=== PATIENT | female | born 1960 | race Hispanic/Latino ===

== ENCOUNTER 2016-09-30 14:51 | Inpatient (IN) | payer MEDICAID ==
[2016-09-30] MEDS ORDERED: Morphine 4 mg/ml ISec IVP STA ×3 (15:26→18:35)
[2016-09-30] MEDS ORDERED: Sodium Chloride 0.9% 1,000 ML IV STA (15:26)
[2016-09-30] MEDS ORDERED: Albuterol-Ipratrop 3 mg / 0.5 (3 ml) UD IH STA (15:28)
[2016-09-30] MEDS ORDERED: Iohexol 240 (50 ml) ONE (15:33)
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
[2016-09-30 16:15] LABS: ADD MANUAL DIFF? NO
[2016-09-30 16:19] LABS: BASO # 0.01 K/mm3 (0.0-2.0); BASO % 0.1 % (0.0-3.0); EOS # 0.1 (0.0-0.7); EOS % 1.7 % (1.5-5.0); GRAN # 4.05 (1.4-6.5); GRAN % 58.5 % (50.0-68.0); HEMATOCRIT 40.4 % (36.0-48.0); LYMPH # 2.3 (1.2-3.4); LYMPH % 33.8 % (22.0-35.0); MEAN CELL VOLUME 96.2 fL (80.0-105.0); MEAN CORPUSCULAR HEMOGLOBIN 32.1 pg (25.0-35.0); MEAN CORPUSCULAR HGB CONC 33.4 g/dl (31.0-37.0); MEAN PLATELET VOLUME 10.2 fl (7.0-11.0); MONO # 0.4 (0.1-0.6); MONO % 5.9 % (1.0-6.0); PLATELET COUNT 337 10^3/uL (120.0-450.0); WHITE BLOOD COUNT 6.9 10^3/ul (4.5-11.0)
[2016-09-30 16:29] LABS: INR 0.93 (0.93-1.08); PARTIAL THROMBOPLASTIN TIME 23.1 Seconds (23.7-30.8)
[2016-09-30 16:36] LABS: ALKALINE PHOSPHATASE 129 U/L (38-133); ALT/SGPT 32 U/L (7-56); AST/SGOT 28 U/L (15-39); BILIRUBIN,TOTAL 0.5 mg/dL (0.2-1.3); BLOOD UREA NITROGEN 11 mg/dL (7-21); CARBON DIOXIDE 20 mmol/L (21-33); CHLORIDE 102 mmol/L (98-107); GFR AFRICAN-AMERICAN > 60; GLUCOSE,RANDOM 90 mg/dL (70-110); LIPASE 151 U/L (23-300); POTASSIUM 4.5 mmol/L (3.6-5.0); SODIUM 140 mmol/L (132-148); TOTAL PROTEIN 9.4 g/dL (5.8-8.3)
[2016-09-30 16:48] LABS: TROPONIN I < 0.01 ng/mL
[2016-09-30] MEDS ORDERED: Iohexol 350 MG/100 ML VIAL ONE (17:07)
[2016-09-30 17:23] LABS: URINE BILIRUBIN NEGATIVE (NEGATIVE); URINE BLOOD TRACE-INTACT (NEGATIVE); URINE GLUCOSE (UA) NEGATIVE (NEGATIVE); URINE KETONE NEGATIVE (NEGATIVE); URINE LEUKOCYTE ESTERASE SMALL Leu/uL (NEGATIVE); URINE PROTEIN NEGATIVE mg/dL (<30 mg/dL); URINE UROBILINOGEN 0.2 E.U./dL (<1 E.U./dL)
[2016-09-30 17:24] LABS: URINE APPEARANCE CLEAR (CLEAR); URINE COLOR YELLOW (YELLOW)
[2016-09-30 17:34] LABS: URINE BACTERIA FEW (NEG); URINE RBC 0 - 2 /hpf (0-2)
--- NOTE | 2016-09-30 18:10 | CARD ---
APPROVED REPORT EKG Measurement Heart [id number] <Conclusion> Normal sinus rhythm Normal ECG
--- NOTE | 2016-09-30 18:16 | CT ---
PROCEDURE: CT HEAD WITHOUT CONTRAST. HISTORY: recent sz 2 days ago COMPARISON: Noncontrast head CT performed 04/16/16 TECHNIQUE: Axial computed tomography images were obtained through the head/brain without intravenous contrast. Radiation dose: Total exam DLP = 1451.69 mGy-cm. This CT exam was performed using one or more of the following dose reduction techniques: Automated exposure control, adjustment of the mA and/or kV according to patient size, and/or use of iterative reconstruction technique. FINDINGS: Examination limited due to patient motion. Streak artifact severely degrades evaluation of the skullbase. HEMORRHAGE: No intracranial hemorrhage. BRAIN: No mass effect or edema. Intracranial atherosclerotic calcifications. Regions in which the miller-white matter differentiation is visualized adequately appears grossly intact. VENTRICLES: No hydrocephalus. CALVARIUM: Unremarkable. PARANASAL SINUSES: Partial opacification of the right sphenoid sinus. The remainder the visualized paranasal sinuses appear grossly clear without air-fluid levels. MASTOID AIR CELLS: Unremarkable as visualized. No inflammatory changes. OTHER FINDINGS: None. IMPRESSION: Examination limited due to patient motion. Streak artifact severely degrades evaluation of the skullbase. Repeat study to become clinically feasible suggested. No acute intracranial pathology appreciated in the setting of the above limitations.
--- NOTE | 2016-09-30 18:33 | CT ---
PROCEDURE: CT Abdomen and Pelvis with oral and IV contrast. HISTORY: abd pain r/o obstruction COMPARISON: CT chest, abdomen, and pelvis 04/19/16 TECHNIQUE: Contiguous axial images of the abdomen and pelvis. Oral and IV contrast was administered. Coronal and Sagittal reformats generated and reviewed. This CT exam was performed using 1 or more of the falling dose reduction techniques: Automated exposure control, adjustment of the MAA and/or kV according to patient size, and/or use of iterative reconstruction technique Contrast dose: 100 mL Omnipaque 350 Radiation dose: Total exam DLP = 1096.09 mGy-cm. FINDINGS: LOWER THORAX: Left basilar atelectasis. There is no visible pleural effusion or pneumothorax. Moderate hiatal hernia and dilated distal esophagus with evidence of gastroesophageal reflux. LIVER: Hypoattenuation of the liver compatible with hepatic steatosis. GALLBLADDER AND BILE DUCTS: Probable tiny gallstones. PANCREAS: Unremarkable. SPLEEN: Unremarkable. ADRENALS: Unremarkable. KIDNEYS AND URETERS: The kidneys enhance symmetrically. No hydronephrosis or obstructing renal calculus. 13 mm low-density lesion within the right kidney measures higher than expected for simple cyst. BLADDER: The urinary bladder appears unremarkable. REPRODUCTIVE: Uterus is absent, presumably due to hysterectomy. APPENDIX: The appendix is not identified. No secondary signs of acute appendicitis. BOWEL: The stomach is nondistended. The bowel loops appear within normal limits of caliber without evidence of intestinal obstruction. Suspect small bowel intussusception within the left upper quadrant (series 2, image 66) . PERITONEUM: No significant free fluid. No definite free air. LYMPH NODES: No bulky lymphadenopathy identified. VASCULATURE: No aortic aneurysm. BONES: Postsurgical changes of the lower lumbar spine. Degenerative changes. Erosive changes of the right iliac wing extending into the sacroiliac joint. OTHER FINDINGS: Tiny fat containing umbilical hernia. IMPRESSION: Suspect small bowel intussusception within the left upper quadrant . Moderate hiatal hernia and dilated distal esophagus with evidence of gastroesophageal reflux. Hepatic steatosis. Probable tiny gallstones. 13 mm low-density lesion within the right kidney measures higher than expected for simple cyst. Suggest further evaluation with ultrasound. Focal erosive change involving the right iliac wing extending into the sacroiliac joint of unclear etiology however present since 05/29/12.
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
[2016-09-30] MEDS ORDERED: levETIRAcetam 500mg IVPB 100 ML IV STA (20:17)
[2016-09-30] MEDS: HYDROmorphone 0.5 mg/0.5 ml ISec IVP PRN (20:40)
[2016-09-30] MEDS: Sodium Chloride 0.9% 1,000 ML IV SCH (21:00)
[2016-09-30 22:32] LABS: INR 0.98 (0.93-1.08)
--- NOTE | 2016-09-30 22:38 | CP.PCM.PN ---
Subjective - Date & Time of Evaluation Date of Evaluation: 09/30/16 Time of Evaluation: 22:36 - Subjective Subjective: wants xanax and a sleeping pill Objective - Vital Signs/Intake and Output Vital Signs (last 24 hours): Temp Pulse Resp BP Pulse Ox 98.1 F 116 H 20 125/99 H 97 09/30/16 15:07 09/30/16 18:39 09/30/16 18:39 09/30/16 18:39 09/30/16 18:39 Intake and Output: 09/30/16 10/01/16 18:59 06:59 Intake Total 120 Balance 120 - Medications Medications: Current Medications Hydromorphone HCl (Dilaudid) 0.5 mg IVP Q4H PRN PRN Reason: Pain, severe (8-10) Last Admin: 09/30/16 20:40 Dose: 0.5 mg Sodium Chloride (Sodium Chloride 0.9%) 1,000 mls @ 100 mls/hr IV .Q10H STA Stop: 10/01/16 01:25 Last Admin: 09/30/16 15:40 Dose: 100 mls/hr Sodium Chloride (Sodium Chloride 0.9%) 1,000 mls @ 100 mls/hr IV .Q10H MANJULA Ondansetron HCl (Zofran Inj) 4 mg IVP Q4H PRN PRN Reason: Nausea/Vomiting - Labs Labs: PT 10.6 Seconds (9.9-11.8) 09/30/16 22:10 INR 0.98 (0.93-1.08) 09/30/16 22:10 APTT 25.0 Seconds (23.7-30.8) 09/30/16 22:10
--- NOTE | 2016-10-01 00:04 | CP.PCM.PN ---
Subjective - Date & Time of Evaluation Date of Evaluation: 10/01/16 Time of Evaluation: 00:03 - Subjective Subjective: S:Patient was seen at bedside. Requests her xananx. States that she is very nervous. Has no other complaints. Denies CP,SOB. States that she is on xanax 0.5 mg three times a day and is on ambien for sleep. States that it is too late to take a sleeping pill, requests for xanax. States that she took only on xanax in the morning. Pertinent medical record was reviewed. O: Last Vital Signs 3 Temp 98.1 F 10/01/16 16:00 Pulse 72 10/01/16 16:00 Resp 19 10/01/16 16:00 BP 103/52 L 10/01/16 16:00 Pulse Ox 93 L 10/01/16 16:00 Awake, alert, not in distress. LUNGS:Normal breathing pattern. A:Anxiety. Adjustment insomnia. P:Xanax 1 mg PO x 1. Objective - Vital Signs/Intake and Output Vital Signs (last 24 hours): Temp Pulse Resp BP Pulse Ox 98.1 F 116 H 20 125/99 H 97 09/30/16 15:07 09/30/16 18:39 09/30/16 18:39 09/30/16 18:39 09/30/16 18:39 Intake and Output: 09/30/16 10/01/16 18:59 06:59 Intake Total 120 Balance 120 - Medications Medications: Current Medications Hydromorphone HCl (Dilaudid) 0.5 mg IVP Q4H PRN PRN Reason: Pain, severe (8-10) Last Admin: 09/30/16 20:40 Dose: 0.5 mg Sodium Chloride (Sodium Chloride 0.9%) 1,000 mls @ 100 mls/hr IV .Q10H STA Stop: 10/01/16 01:25 Last Admin: 09/30/16 15:40 Dose: 100 mls/hr Sodium Chloride (Sodium Chloride 0.9%) 1,000 mls @ 100 mls/hr IV .Q10H MANJULA Last Admin: 09/30/16 21:00 Dose: 100 mls/hr Ondansetron HCl (Zofran Inj) 4 mg IVP Q4H PRN PRN Reason: Nausea/Vomiting - Labs Labs: PT 10.6 Seconds (9.9-11.8) 09/30/16 22:10 INR 0.98 (0.93-1.08) 09/30/16 22:10 APTT 25.0 Seconds (23.7-30.8) 09/30/16 22:10
[2016-10-01] MEDS: HYDROmorphone 0.5 mg/0.5 ml ISec IVP PRN ×6 (00:24→20:43)
[2016-10-01 02:01] VITALS: BMI 31.1
[2016-10-01 07:21] LABS: ADD MANUAL DIFF? NO
[2016-10-01 07:30] LABS: ALB/GLOB RATIO 1.1 (1.1-1.8); ALKALINE PHOSPHATASE 101 U/L (38-133); ALT/SGPT 35 U/L (7-56); AST/SGOT 32 U/L (15-39); BILIRUBIN,TOTAL 0.5 mg/dL (0.2-1.3); BLOOD UREA NITROGEN 14 mg/dL (7-21); CALCIUM 9.2 mg/dL (8.4-10.5); CARBON DIOXIDE 25 mmol/L (21-33); CHLORIDE 102 mmol/L (95-110); GFR AFRICAN-AMERICAN > 60; GLUCOSE,RANDOM 118 mg/dL (70-110); SODIUM 139 mmol/L (132-148)
[2016-10-01 07:38] LABS: GRAN # 7.52 (1.4-6.5); HEMATOCRIT 33.4 % (36.0-48.0); LYMPH # 1.5 (1.2-3.4); LYMPH % 16.2 % (22.0-35.0); MEAN CELL VOLUME 96.3 fL (80.0-105.0); MEAN CORPUSCULAR HEMOGLOBIN 31.7 pg (25.0-35.0); MEAN CORPUSCULAR HGB CONC 32.9 g/dl (31.0-37.0); MONO # 0.5 (0.1-0.6); MONO % 4.8 % (1.0-6.0); PLATELET COUNT 326 10^3/uL (120.0-450.0); RED CELL DISTRIBUTION WIDTH 14.4 % (11.5-14.5); WHITE BLOOD COUNT 9.5 10^3/ul (4.5-11.0)
[2016-10-01 07:51] LABS: POTASSIUM 5.2 mmol/L (3.6-5.0)
[2016-10-01] MEDS: Budesonide 0.25 mg/2 ml Inhal Susp UD IH SCH ×2 (08:14→19:30)
[2016-10-01] MEDS: Arformoterol 15 mcg/2 ml Inh Sol IH SCH ×2 (08:14→19:30)
--- NOTE | 2016-10-01 08:50 | CP.PCM.PN ---
Subjective - Date & Time of Evaluation Date of Evaluation: 10/01/16 Time of Evaluation: 07:00 - Subjective Subjective: Surgery note for Dr Day: Pt seen and examined at bedside. No acute events overnight. Pt appears anxious about her abdominal pain. She c/o intermittent abd pain. She has nausea but denies any vomiting. Pt had non bloody BM yesterday. Denies any fever, chills, sob or cp. Objective - Vital Signs/Intake and Output Vital Signs (last 24 hours): Temp Pulse Resp BP Pulse Ox 98.0 F 113 H 20 141/87 97 09/30/16 21:11 10/01/16 08:14 09/30/16 21:11 09/30/16 21:11 09/30/16 18:39 Intake and Output: 10/01/16 10/01/16 06:59 18:59 Intake Total 120 0 Balance 120 0 - Medications Medications: Current Medications Alprazolam (Xanax) 0.5 mg PO TID MANJULA PRN Reason: Protocol Arformoterol Tartrate (Brovana) 15 mcg IH [id number] [facility] Last Admin: 10/01/16 08:14 Dose: 15 mcg Budesonide (Pulmicort Respules) 0.25 mg IH [id number] [facility] Last Admin: 10/01/16 08:14 Dose: 0.25 mg Hydromorphone HCl (Dilaudid) 0.5 mg IVP Q4H PRN PRN Reason: Pain, severe (8-10) Last Admin: 10/01/16 08:33 Dose: 0.5 mg Sodium Chloride (Sodium Chloride 0.9%) 1,000 mls @ 100 mls/hr IV .Q10H [facility] Last Admin: 09/30/16 21:00 Dose: 100 mls/hr Insulin Human Regular (Humulin R High) 0 units SC ACHS MANJULA PRN Reason: Protocol Levetiracetam (Keppra) 500 mg PO BID MANJULA Methylprednisolone (Solu-Medrol) 20 mg IVP Q12 MANJULA Ondansetron HCl (Zofran Inj) 4 mg IVP Q4H PRN PRN Reason: Nausea/Vomiting Pantoprazole Sodium (Protonix Inj) 40 mg IVP DAILY MANJULA Paroxetine HCl (Paxil) 20 mg PO DAILY MANJULA Zolpidem Tartrate (Ambien) 5 mg PO HS PRN; Protocol PRN Reason: Insomnia - Labs Labs: 10/01/16 07:00 10/01/16 07:00 PT 10.6 Seconds (9.9-11.8) 09/30/16 22:10 INR 0.98 (0.93-1.08) 09/30/16 22:10 APTT 25.0 Seconds (23.7-30.8) 09/30/16 22:10 - Constitutional Appears: No Acute Distress - ENT Exam ENT Exam: Mucous Membranes Moist - Respiratory Exam Respiratory Exam: Clear to Ausculation Bilateral, NORMAL BREATHING PATTERN - Cardiovascular Exam Cardiovascular Exam: REGULAR RHYTHM, +S1, +S2. absent: Murmur - GI/Abdominal Exam GI & Abdominal Exam: Soft, Tenderness (L>R), Normal Bowel Sounds. absent: Distended, Rigid - Neurological Exam Neurological Exam: Alert, Awake, Oriented x3 Assessment and Plan - Assessment and Plan (Free Text) Assessment: 56F with an extensive pmh presents with a small bowel intusseseption. - No surgical intervention at this time - NPO - Pain control - Cont antiemetic - Cont IVF - Serial abdominal Exams - Medical management per primary team Further recs will discuss with Dr. Shay Berg IM Resident PGY-1
[2016-10-01] MEDS: Sodium Chloride 0.9% 1,000 ML IV SCH ×2 (09:17→17:25)
[2016-10-01] MEDS: MethylPREDNISolone 40 mg Vial IVP SCH ×2 (09:21→22:23)
[2016-10-01] MEDS ORDERED: MethylPREDNISolone 40 mg Vial IVP SCH (10:00)
[2016-10-01] MEDS ORDERED: Fluticasone-Salmeterol 100-50mcg Diskus IH SCH (10:00)
--- NOTE | 2016-10-01 10:07 | HP ---
I know the patient very well from the office and numerous hospital stays. She came to my office yest erday with shortness of breath, uncomfortable, abdominal distention maybe, just not feeling well, and I called 911 from my office due to her increasing respirations in the 30s, close to 40. She is a 56-year-old female who presents to the Emergency Room with worsening shortness of breath, le ft upper quadrant abdominal pain. She also had possible seizures 2 days ago. She had urinary incont inence at the time. The left upper quadrant pain began with the shortness of breath. She came to my office and I sent her to the Emergency Room. It was sudden onset. Got worse; did not get better. She dealt with it for 2 days, and I sent her right there--called 911. She has a history of angina, arrhythmia, hypertension, COPD, pneumonias in the past, dizziness, seizu res, kidney stones in the past, type 2 diabetes, anxiety, arthritis, back pain in the spine. She had multiple falls, hiatal hernia, reflux, hematuria, anxiety, depression. She had a cardiac catheteriza tions. She had appendectomy done, coronary stents, hysterectomy, spine surgery, C-sections, hiatal hernia hernandez rgery. There is hypertension in the family. She is a former smoker. No alcohol, no drugs. SHE IS ALLERGIC TO DIPHENHYDRAMINE, IBUPROFEN, and TOMATO. No acute vision changes, no acute hearing changes. No sore throat. No apparent chest pain. There i s abdominal pain, there is some nauseousness. There is shortness of breath; breathing very quickly. She has numbness in the fingers, probably from bleeding too much. A little nauseous, but no vomitin g. She can walk very slowly. No skin issues. No headaches, no dizziness. She has a 98.1 temp, 116 pulse, 20 respiratory rate, 125/99 blood pressure, and 100% to 97% O2 sat 2 L of oxygen. She is a little bit ill-appearing, alert and oriented x 3. HEAD: Atraumatic, normocephalic. Pupils equal, reactive to light. Extraocular muscles are intact. Membranes are dry. NECK: Supple. LUNGS: Have decreased breath sounds bilaterally, but clear to auscultation. No wheezes, no rhonchi, no rales. HEART: Regular rate. Normal S1, S2. ABDOMEN: Has tenderness left upper quadrant. Decreased bowel sounds were present, mildly distended. BACK: Normal inspection. EXTREMITIES: No edema. GCS is 15. Cranial nerves II-XII grossly intact. Speech is normal. SKIN: Warm and dry, no rashes apparent. PSYCHIATRICALLY: She is alert and oriented x 3. Maybe a little bit nervous. Nonpalpable adenopathy , and thyroid is midline to palpation. She comes in with shortness of breath, abdominal pain; had multiple tests. She has a urine which is trace blood. Chemistry: 140 sodium, potassium 4.5, BUN 11, creatinine 0.6. GFR is greater than 60. Sugar is 98, calcium is 10, total bili is 0.5. AST is 20, ALT 32, alk phos 129. Troponin is less t csae 0.01. Total protein is 9.4, albumin is 4.8, and lipase is 151. INR is 0.98. She has a 6.9 whit e count, 13.5 hemoglobin, 40.4 hematocrit, with 337 platelets. She had a CAT scan of the head which did not help us because she moved. The CAT scan of abdomen and pelvis though did show small bowel intussusception of the left upper quadrant, hiatal hernia with dis edenilson esophagus evidence of gastric reflux with steatosis, tiny gallstones. A 13 mm low-density lesion within the right kidney. Will check an ultrasound. She has erosion of the iliac wing which she has had before since a while back. There will be a consult with pulmonary for the shortness of breath, Dr. Day for the intussuscepti on and small bowel obstruction. She will be on IV fluids, n.p.o. except for meds. Pain meds as need ed. Anxiety meds. She was given 1 dose of Solu-Medrol. I am going to put her on insulin coverage, Protonix, Solu-Medrol 30, and will keep a very close on her. I am making her in patient. She is here for intussusception, small-b owel obstruction, shortness of breath. Asher Rodrigez DO cc: [id number] TT: 10/01/2016 10:06:31 jn
--- NOTE | 2016-10-01 10:34 | CON ---
DATE: 10/01/2016 REASON FOR CONSULTATION: Shortness of breath. REFERRING PHYSICIAN: Dr. Asher Rodrigez. The patient is a 56-year-old female with past medical history significant for chronic obstructive pulmonary disease, severe anxiety with panic attacks, hiatal hernia surgery in the past, who presents to [facility] with main complaint of increasing abdominal pain for the past 2 days. In the Emergency Room, CAT scan of the abdomen and pelvis was done. Small bowel intussusception was noted. The patient was thus admitted for additional evaluation. The patient does state to some shortness of breath at home -- primarily when she was in pain. She also has an extensive history of severe anxiety and panic attacks. She is not short of breath this morning. There is no history of cough or sputum production. There is no history of chest pain, coughing up of blood or chest pain -- made worse with deep respirations. There is no history of temperatures, chills, or infectious exposure. There is no history of night sweats, weight loss, or appetite change prior to the above events. No history of leg or calf pains. No history of syncope or diaphoresis. No history of recent travel or trauma. REVIEW OF SYSTEMS: No nausea, vomiting, or diarrhea. No acute urinary symptoms. No new musculoskeletal complaints. Rest of review of systems is negative. ALLERGIES: DIPHENHYDRAMINE AND IBUPROFEN. SOCIAL HISTORY: Positive for tobacco; negative for alcohol. FAMILY HISTORY: No inheritable diseases. HOME MEDICATIONS: Include Advair, Keppra, Ambien, prednisone, Paxil, Xanax. PHYSICAL EXAMINATION: The patient appears comfortable this morning. She is not short of breath at rest. VITALS: Temperature is 98, pulse is approximately 90, respiratory rate 18/20, blood pressure 141/87. Oxygen saturation on nasal cannula is 95-97%. HENT: Normocephalic, atraumatic. NECK: No JVD. CARDIOVASCULAR: Positive S1, S2. No S3. LUNGS: Clear bilaterally. EXTREMITIES: Minimal edema. No cyanosis, no clubbing. Calves are nontender to palpation. GASTROINTESTINAL: Abdomen is soft. It is distended and tender to palpation. Bowel sounds are diminished. SKIN: No acute rash. NEUROLOGIC EXAMINATION: Limited at the present time. PERTINENT LABORATORY DATA: CAT scan of the abdomen and pelvis was done. There are minimal chronic changes noted at the lung bases. There is evidence of small bowel intussusception within the left upper quadrant. There is a moderate hiatal hernia and dilated distal esophagus. Chest x-ray---no active disease. CBC: White count 9.5, hemoglobin 11.0, hematocrit 33.4, platelets of 326. Complete Metabolic Profile: Potassium 5.2, glucose 118. Rest of the metabolic profile is within normal limits. IMPRESSION: 1. Small bowel intussusception. 2. Chronic obstructive pulmonary disease. 3. Severe anxiety, with panic attacks. 4. Mild anemia. PLAN: The patient presents to [facility] with main complaint of increasing abdominal pain for the past 2 days. The patient did have a CAT scan of the abdomen and pelvis -- noted above. She was thus admitted for additional evaluation. Surgical evaluation with Dr. Day has been ordered. On physical exam, her lungs are clear. Oxygen saturation on nasal cannula is 95-97 %. I will continue with the current nebulizer treatments -- ordered by Dr. Rodrigez. The patient has also been placed on intravenous steroids -- by Dr. Rodrigez. As above, the patient is not in bronchospasm at the present time. Nor is there a significant alveolar arterial gradient. I will decrease the intravenous steroids this morning. Again, surgical evaluation by Dr. Day is pending. As above, the patient does suffer from severe anxiety and panic attacks. Her shortness of breath is much more prevalent -- when she is in pain or when she is anxious. Additional pulmonary intervention will be based on the clinical status of the patient. I will discuss the above with Dr. Rodrigez. Thank you very much for this pulmonary consultation. Chan Johnson MD cc: [id number] TT: 10/01/2016 10:34:27 Confirmation # [id number] Dictation # [id number] jn PEPE
--- NOTE | 2016-10-01 10:48 | RAD ---
PROCEDURE: CHEST RADIOGRAPH, 1 VIEW HISTORY: sob COMPARISON: 06/30/2016 FINDINGS: LUNGS: Clear. PLEURA: No pneumothorax or pleural fluid seen. CARDIOVASCULAR: Normal. OSSEOUS STRUCTURES: No significant abnormalities. VISUALIZED UPPER ABDOMEN: Normal. OTHER FINDINGS: None. IMPRESSION: No active disease.
--- NOTE | 2016-10-01 10:48 | RAD ---
HISTORY: abd pain COMPARISON: No prior. FINDINGS: BOWEL: Normal. No obstruction. No free air. BONES: Normal. OTHER FINDINGS: Contrast is seen in the bladder. Oral contrast is seen in the bowel. IMPRESSION: No active disease.
[2016-10-01] MEDS: Insulin Reg-HIGH-Coverage SC SCH ×3 (12:42→22:25)
--- NOTE | 2016-10-01 14:30 | US ---
PROCEDURE: Ultrasound of the Kidneys HISTORY: cyst? COMPARISON: CT abdomen and pelvis with contrast performed 09/30/16 TECHNIQUE: Sonogram of the kidneys. FINDINGS: RIGHT KIDNEY: Measures: 10.9 x 4.3 x 5.9 cm. No obstructing calculus or hydronephrosis identified. 1.0 x 1.0 x 1.3 cm right lower pole renal lesion appears hypoechoic and avascular compatible with a cyst. LEFT KIDNEY: Measures: 10.1 x 3.9 x 5.3 cm. No obstructing calculus, hydronephrosis, or renal cyst identified. OTHER FINDINGS: None. IMPRESSION: 1.0 x 1.3 x 1.3 cm right lower pole renal cyst.
[2016-10-02] MEDS: HYDROmorphone 0.5 mg/0.5 ml ISec IVP PRN ×6 (01:30→20:22)
[2016-10-02] MEDS: Arformoterol 15 mcg/2 ml Inh Sol IH SCH ×2 (07:23→20:45)
[2016-10-02] MEDS: Budesonide 0.25 mg/2 ml Inhal Susp UD IH SCH ×2 (07:24→20:45)
[2016-10-02] MEDS: Sodium Chloride 0.9% 1,000 ML IV SCH ×2 (07:51→18:19)
[2016-10-02] MEDS: Insulin Reg-HIGH-Coverage SC SCH ×3 (07:53→16:44)
[2016-10-02 08:20] LABS: ADD MANUAL DIFF? NO
[2016-10-02 08:24] LABS: GRAN # 5.39 (1.4-6.5); GRAN % 64.9 % (50.0-68.0); HEMATOCRIT 34.1 % (36.0-48.0); LYMPH # 2.6 (1.2-3.4); LYMPH % 30.8 % (22.0-35.0); MEAN CELL VOLUME 97.7 fL (80.0-105.0); MEAN CORPUSCULAR HEMOGLOBIN 31.5 pg (25.0-35.0); MEAN CORPUSCULAR HGB CONC 32.3 g/dl (31.0-37.0); MEAN PLATELET VOLUME 9.6 fl (7.0-11.0); MONO # 0.4 (0.1-0.6); MONO % 4.3 % (1.0-6.0); PLATELET COUNT 297 10^3/uL (120.0-450.0); RED CELL DISTRIBUTION WIDTH 14.4 % (11.5-14.5); WHITE BLOOD COUNT 8.3 10^3/ul (4.5-11.0)
[2016-10-02 08:43] LABS: ALB/GLOB RATIO 1.2 (1.1-1.8); ALKALINE PHOSPHATASE 102 U/L (38-133); ALT/SGPT 32 U/L (7-56); AST/SGOT 31 U/L (15-39); BILIRUBIN,TOTAL 0.5 mg/dL (0.2-1.3); BLOOD UREA NITROGEN 12 mg/dL (7-21); CARBON DIOXIDE 28 mmol/L (21-33); CHLORIDE 100 mmol/L (98-107); GFR AFRICAN-AMERICAN > 60; GLUCOSE,RANDOM 113 mg/dL (70-110); POTASSIUM 4.1 mmol/L (3.6-5.0); SODIUM 138 mmol/L (132-148); TOTAL PROTEIN 7.8 g/dL (5.8-8.3)
--- NOTE | 2016-10-02 08:43 | PN ---
DATE: 10/02/2016 SUBJECTIVE: The patient appears comfortable this morning. She is not short of breath at rest. OBJECTIVE: VITAL SIGNS: Temperature is 98.1, pulse 72, respirations 19, blood pressure 103 /52. Oxygen saturation on nasal cannula ranges between 93%-97%. HEENT: Normocephalic, atraumatic. NECK: No JVD. CARDIOVASCULAR: Positive S1, S2. No S3. LUNGS: Clear bilaterally. EXTREMITIES: Minimal edema. No cyanosis, no clubbing. Calves are nontender to palpation. GASTROINTESTINAL: Abdomen is soft. It is less distended and less tender to palpation. Bowel sounds are somewhat improved. SKIN: No acute rash. NEUROLOGIC: Limited at the present time. IMPRESSION: 1. Small bowel intussusception. 2. Chronic obstructive pulmonary disease. 3. Severe anxiety with panic attacks. 4. Mild anemia. PLAN: The patient appears much more comfortable this morning. She is not short of breath at rest. She has less abdominal pain. She states she is feeling much better this morning. On physical exam, her lungs are clear. In addition, there is no significant alveolar arterial gradient. I will continue with the current nebulizer treatments and low-dose intravenous steroids ( decreased yesterday) for now. I would continue with the surgical evaluation and workup. Inputs are noted. Clinical status of the patient appears improved. I will discuss the above with Dr. Rodrigez. Chan Johnson MD cc: [id number] TT: 10/02/2016 08:42:35 Confirmation # [id number] Dictation # [id number] jn PEPE
[2016-10-02] MEDS: MethylPREDNISolone 40 mg Vial IVP SCH ×2 (10:02→22:07)
--- NOTE | 2016-10-02 11:07 | CP.PCM.PN ---
Subjective - Date & Time of Evaluation Date of Evaluation: 10/02/16 Time of Evaluation: 11:03 - Subjective Subjective: SURGERY NOTE FROM KEENA GARLAND 56F seen and examined at bedside. Patient states she continues to have left sided abdominal pain that is controlled with medications, she admits to nausea/ denies vomiting. Denies further bowel movements. Denies urinary symptoms. Objective - Vital Signs/Intake and Output Vital Signs (last 24 hours): Temp Pulse Resp BP Pulse Ox 98.1 F 72 19 103/52 L 93 L 10/01/16 16:00 10/01/16 16:00 10/01/16 16:00 10/01/16 16:00 10/01/16 16:00 Intake and Output: 10/02/16 10/02/16 06:59 18:59 Intake Total 0 Balance 0 - Medications Medications: Current Medications Alprazolam (Xanax) 0.5 mg PO TID [facility] PRN Reason: Protocol Last Admin: 10/02/16 10:02 Dose: 0.5 mg Arformoterol Tartrate (Brovana) 15 mcg IH [id number] [facility] Last Admin: 10/02/16 07:23 Dose: 15 mcg Budesonide (Pulmicort Respules) 0.25 mg IH [id number] [facility] Last Admin: 10/02/16 07:24 Dose: 0.25 mg Hydromorphone HCl (Dilaudid) 0.5 mg IVP Q4H PRN PRN Reason: Pain, severe (8-10) Last Admin: 10/02/16 08:01 Dose: 0.5 mg Sodium Chloride (Sodium Chloride 0.9%) 1,000 mls @ 100 mls/hr IV .Q10H [facility] Last Admin: 10/02/16 07:51 Dose: 100 mls/hr Insulin Human Regular (Humulin R High) 0 units SC ACHS [facility] PRN Reason: Protocol Last Admin: 10/02/16 07:53 Dose: Not Given Levetiracetam (Keppra) 500 mg PO BID [facility] Last Admin: 10/02/16 10:02 Dose: 500 mg Methylprednisolone (Solu-Medrol) 20 mg IVP Q12 [facility] Last Admin: 10/02/16 10:02 Dose: 20 mg Ondansetron HCl (Zofran Inj) 4 mg IVP Q4H PRN PRN Reason: Nausea/Vomiting Pantoprazole Sodium (Protonix Inj) 40 mg IVP DAILY [facility] Last Admin: 10/02/16 10:02 Dose: 40 mg Paroxetine HCl (Paxil) 20 mg PO DAILY [facility] Last Admin: 10/02/16 10:02 Dose: 20 mg Zolpidem Tartrate (Ambien) 5 mg PO HS PRN; Protocol PRN Reason: Insomnia Last Admin: 10/01/16 22:23 Dose: 5 mg - Labs Labs: 10/02/16 08:19 10/02/16 08:19 PT 10.6 Seconds (9.9-11.8) 09/30/16 22:10 INR 0.98 (0.93-1.08) 09/30/16 22:10 APTT 25.0 Seconds (23.7-30.8) 09/30/16 22:10 - Constitutional Appears: Non-toxic, No Acute Distress - Head Exam Head Exam: ATRAUMATIC - Respiratory Exam Respiratory Exam: Clear to Ausculation Bilateral, NORMAL BREATHING PATTERN - Cardiovascular Exam Cardiovascular Exam: REGULAR RHYTHM, +S1, +S2 - GI/Abdominal Exam GI & Abdominal Exam: Soft, Tenderness (left sided). absent: Distended, Firm, Guarding, Rigid, Rebound - Neurological Exam Neurological Exam: Alert, Awake - Psychiatric Exam Psychiatric exam: Anxious - Skin Skin Exam: Dry, Intact, Normal Color, Warm Assessment and Plan - Assessment and Plan (Free Text) Assessment: 56F with an extensive PMH presents with a small bowel intussusception. CT oral contrast: no active disease, no obstruction, no intussusception - Pain control - Cont antiemetic - Cont IVF - Serial abdominal Exams - Medical management per primary team Further recs will discuss with Dr. Keena Hanson, PGY1
[2016-10-02] MEDS ORDERED: Iohexol 240 (50 ml) ONE (12:59)
--- NOTE | 2016-10-02 15:44 | CT ---
PROCEDURE: CT Abdomen and Pelvis without intravenous contrast HISTORY: r/o obstruction/ poss intussuception COMPARISON: 09/30/2016 TECHNIQUE: Without contrast. Contrast Dose: Radiation dose: Total exam DLP = 573 mGy-cm. This CT exam was performed using one or more of the following dose reduction techniques: Automated exposure control, adjustment of the mA and/or kV according to patient size, and/or use of iterative reconstruction technique. FINDINGS: LOWER THORAX: Unremarkable. LIVER: Unremarkable. No gross lesion or ductal dilatation. GALLBLADDER AND BILE DUCTS: Unremarkable. PANCREAS: Unremarkable. No gross lesion or ductal dilatation. SPLEEN: Unremarkable. ADRENALS: Unremarkable. No mass. KIDNEYS AND URETERS: Unremarkable. No hydronephrosis. No solid mass. VASCULATURE: Unremarkable. No aortic aneurysm. BOWEL: Unremarkable. No obstruction. No gross mural thickening. There is no evidence of intussusception or obstruction APPENDIX: Unremarkable. Normal appendix. PERITONEUM: Unremarkable. No free fluid. No free air. LYMPH NODES: Unremarkable. No enlarged lymph nodes. BLADDER: Unremarkable. REPRODUCTIVE: Unremarkable. BONES: There is surgical hardware in the lower lumbar spine OTHER FINDINGS: None. IMPRESSION: No evidence of obstruction or intussusception
[2016-10-03] MEDS: HYDROmorphone 0.5 mg/0.5 ml ISec IVP PRN ×6 (01:29→21:38)
--- NOTE | 2016-10-03 08:25 | PN ---
DATE: 10/03/2016 SUBJECTIVE: The patient appears comfortable this morning. She is not short of breath at rest. PHYSICAL EXAMINATION: VITAL SIGNS: Temperature is 98.9, pulse 70, respirations 18/20, blood pressure 132/88. Oxygen saturation on nasal cannula is 98%-100%. HEENT: Normocephalic, atraumatic. No JVD. CARDIOVASCULAR: Positive S1, S2. No S3. LUNGS: Clear bilaterally. EXTREMITIES: Minimal edema. No cyanosis, no clubbing. Calves are nontender to palpation. GASTROINTESTINAL: Abdomen is soft. It is less distended and less tender to palpation. Bowel sounds are improved. SKIN: No acute rash. NEUROLOGIC: Limited at the present time. IMPRESSION: 1. Small bowel intussusception. 2. Chronic obstructive pulmonary disease. 3. Severe anxiety with panic attacks. 4. Mild anemia. PLAN: The patient appears very comfortable this morning. She is not short of breath at rest. She has less abdominal pain. She does state to feeling much better overall. On physical exam, her lungs remain clear. Oxygen saturation on nasal cannula is 98%-100%. I will continue with the current nebulizer treatments and inhaled Pulmicort for now. I will also discontinue the intravenous steroids at this point in time. Surgical evaluation is ongoing. Inputs are noted. The clinical status of the patient is significantly improved -- compared to the initial presentation. I will discuss the above with Dr. Rodrigez. Chan Johnson MD cc: [id number] TT: 10/03/2016 08:24:59 Confirmation # [id number] Dictation # [id number] en MTDD
[2016-10-03] MEDS: Budesonide 0.5 mg/2 ml Inhal Susp UD IH SCH ×2 (08:43→19:37)
[2016-10-03] MEDS: Arformoterol 15 mcg/2 ml Inh Sol IH SCH ×2 (08:43→19:37)
[2016-10-03 09:03] LABS: ADD MANUAL DIFF? NO
[2016-10-03] MEDS: Insulin Reg-HIGH-Coverage SC SCH ×5 (09:12→21:39)
[2016-10-03] MEDS: Sodium Chloride 0.9% 1,000 ML IV SCH ×3 (09:12→22:05)
[2016-10-03 09:14] LABS: GRAN % 67.4 % (50.0-68.0); HEMATOCRIT 32.2 % (36.0-48.0); LYMPH # 1.8 (1.2-3.4); LYMPH % 26.7 % (22.0-35.0); MEAN CORPUSCULAR HEMOGLOBIN 31.3 pg (25.0-35.0); MEAN CORPUSCULAR HGB CONC 32.3 g/dl (31.0-37.0); MEAN PLATELET VOLUME 9.8 fl (7.0-11.0); MONO # 0.4 (0.1-0.6); MONO % 5.9 % (1.0-6.0); PLATELET COUNT 268 10^3/uL (120.0-450.0); RED CELL DISTRIBUTION WIDTH 14.1 % (11.5-14.5); WHITE BLOOD COUNT 6.8 10^3/ul (4.5-11.0)
[2016-10-03 09:22] LABS: ALB/GLOB RATIO 1.1 (1.1-1.8); ALKALINE PHOSPHATASE 96 U/L (38-133); ALT/SGPT 29 U/L (7-56); AST/SGOT 22 U/L (15-39); BILIRUBIN,TOTAL 0.4 mg/dL (0.2-1.3); BLOOD UREA NITROGEN 9 mg/dL (7-21); CALCIUM 8.7 mg/dL (8.4-10.5); CARBON DIOXIDE 25 mmol/L (21-33); CHLORIDE 103 mmol/L (95-110); GFR AFRICAN-AMERICAN > 60; GLUCOSE,RANDOM 100 mg/dL (70-110); POTASSIUM 4.1 mmol/L (3.6-5.0); SODIUM 138 mmol/L (132-148); TOTAL PROTEIN 7.3 g/dL (5.8-8.3)
--- NOTE | 2016-10-03 10:20 | CP.PCM.PN ---
Subjective - Date & Time of Evaluation Date of Evaluation: 10/03/16 Time of Evaluation: 07:30 - Subjective Subjective: General Surgery progress note for Dr. Day Pt s/e at bedside this AM. NAEO. Resting comfortably when I entered the room. Patient states that L sided abdominal pain is worse, and reports constant nausea , but denies vomiting. Reports passing gas but denies BM. Denies fevers, chills , chest pain, SOB, leg pain or swelling. Objective - Vital Signs/Intake and Output Vital Signs (last 24 hours): Temp Pulse Resp BP Pulse Ox 98.1 F 73 20 122/59 L 94 L 10/03/16 09:37 10/03/16 09:37 10/03/16 09:37 10/03/16 09:37 10/03/16 09:37 Intake and Output: 10/03/16 10/03/16 06:59 18:59 Intake Total 0 Balance 0 - Medications Medications: Current Medications Alprazolam (Xanax) 0.5 mg PO TID [facility] PRN Reason: Protocol Last Admin: 10/03/16 09:10 Dose: 0.5 mg Arformoterol Tartrate (Brovana) 15 mcg IH [id number] [facility] Last Admin: 10/03/16 08:43 Dose: 15 mcg Budesonide (Pulmicort Respules) 0.5 mg IH [id number] [facility] Last Admin: 10/03/16 08:43 Dose: 0.5 mg Hydromorphone HCl (Dilaudid) 0.5 mg IVP Q4H PRN PRN Reason: Pain, severe (8-10) Last Admin: 10/03/16 09:10 Dose: 0.5 mg Sodium Chloride (Sodium Chloride 0.9%) 1,000 mls @ 100 mls/hr IV .Q10H [facility] Last Admin: 10/03/16 09:12 Dose: 100 mls/hr Insulin Human Regular (Humulin R High) 0 units SC ACHS [facility] PRN Reason: Protocol Last Admin: 10/03/16 09:12 Dose: Not Given Levetiracetam (Keppra) 500 mg PO BID [facility] Last Admin: 10/03/16 09:10 Dose: 500 mg Ondansetron HCl (Zofran Inj) 4 mg IVP Q4H PRN PRN Reason: Nausea/Vomiting Last Admin: 10/02/16 13:40 Dose: 4 mg Pantoprazole Sodium (Protonix Inj) 40 mg IVP DAILY [facility] Last Admin: 10/03/16 09:10 Dose: 40 mg Paroxetine HCl (Paxil) 20 mg PO DAILY [facility] Last Admin: 10/03/16 09:10 Dose: 20 mg Pregabalin (Lyrica) 75 mg PO HS [facility] Last Admin: 10/02/16 22:07 Dose: 75 mg Zolpidem Tartrate (Ambien) 5 mg PO HS PRN; Protocol PRN Reason: Insomnia Last Admin: 10/02/16 22:06 Dose: 5 mg - Labs Labs: 10/03/16 09:01 10/03/16 09:01 PT 10.6 Seconds (9.9-11.8) 09/30/16 22:10 INR 0.98 (0.93-1.08) 09/30/16 22:10 APTT 25.0 Seconds (23.7-30.8) 09/30/16 22:10 - Constitutional Appears: Well, Non-toxic, No Acute Distress - Head Exam Head Exam: ATRAUMATIC, NORMOCEPHALIC - Eye Exam Eye Exam: Normal appearance. absent: Conjunctival injection, Scleral icterus - ENT Exam ENT Exam: Mucous Membranes Moist, Normal Oropharynx - Respiratory Exam Respiratory Exam: NORMAL BREATHING PATTERN. absent: Accessory Muscle Use, Respiratory Distress - GI/Abdominal Exam GI & Abdominal Exam: Distended, Soft, Tenderness (LUQ, LLQ) - Extremities Exam Extremities Exam: absent: Calf Tenderness, Pedal Edema, Tenderness - Neurological Exam Neurological Exam: Alert, Awake, Oriented x3 - Psychiatric Exam Psychiatric exam: Anxious, Normal Affect - Skin Skin Exam: Intact, Normal Color, Warm Assessment and Plan - Assessment and Plan (Free Text) Assessment: 56F with an extensive PMH presents with LUQ and LLQ abdominal pain, CT 09/30: possible small bowel intussusception. CT oral contrast 10/02 no active disease, no obstruction, no intussusception Plan: - No indication for surgical intervention at this time - F/u GI recs - Pain control - Cont antiemetic - Cont IVF - CLD, NPO after midnight in case GI has plans for intervention - Serial abdominal Exams - Medical management per primary team Pt seen and plan discussed with Dr. Shay Mckeon, PGY1
--- NOTE | 2016-10-03 18:32 | PN ---
DATE: 10/03/2016 I saw the patient resting in bed. She is a little more alert, still has left upper quadrant pain, bu t not as bad and she is smiling a little bit. On IV fluids. PHYSICAL EXAMINATION: VITAL SIGNS: She has a 98.1 temp, 73 pulse, 122/59 blood pressure, 20 respiratory rate, 94% O2 sat o n room air. HEAD: Atraumatic, normocephalic. Throat is moist. NECK: Supple. HEART: Regular rate. LUNGS: Decreased breath sounds, but clear to auscultation. ABDOMEN: Mildly obese. Left upper quadrant tenderness, no guarding, no rebound. Decreased bowel so unds. EXTREMITIES: No edema. MEDICATIONS: She is currently on Ambien, Brovana, Dilaudid, insulin, Keppra, Lyrica, Paxil, Protonix , Pulmicort, IV fluids, Xanax and Zofran. LABORATORY DATA: She has a 6.8 white count, 10.4 hemoglobin, 32.2 hematocrit with 268 platelets. IN R is 0.98. Sodium is 138, potassium is 4.1, BUN 9, creatinine 0.5, GFR is greater than 60, sugar is 100, calcium is 8.7, total bili is 0.4, AST 22, ALT is 29, alkaline is 96, total protein 7.3. ASSESSMENT AND PLAN: She is being seen by pulmonary and surgery. The last CAT scan of the abdomen s howed no evidence of obstruction or intussusception, so that improved. I will put her on clear fluids today. She has history of chronic obstructive pulmonary disease, panic attacks, mild anemia. We wi ll get her out of bed to chair, start clear liquids. Call on GI for the abdominal pain. Will check her labs tomorrow. Hopefully, she will do very well. Asher Rodrigez DO cc: [id number] TT: 10/03/2016 18:32:24 Confirmation # [id number] Dictation # [id number] cherri
[2016-10-04] MEDS: HYDROmorphone 0.5 mg/0.5 ml ISec IVP PRN ×2 (02:09→05:50)
[2016-10-04 05:58] LABS: ADD MANUAL DIFF? NO
[2016-10-04] MEDS: Sodium Chloride 0.9% 1,000 ML IV SCH ×3 (06:11→20:06)
[2016-10-04 06:25] LABS: BASO # 0.01 K/mm3 (0.0-2.0); BASO % 0.2 % (0.0-3.0); EOS % 0.7 % (1.5-5.0); GRAN # 2.82 (1.4-6.5); HEMATOCRIT 32.3 % (36.0-48.0); LYMPH # 2.3 (1.2-3.4); LYMPH % 41.4 % (22.0-35.0); MEAN CELL VOLUME 97.9 fL (80.0-105.0); MEAN CORPUSCULAR HEMOGLOBIN 32.1 pg (25.0-35.0); MEAN CORPUSCULAR HGB CONC 32.8 g/dl (31.0-37.0); MEAN PLATELET VOLUME 9.6 fl (7.0-11.0); MONO # 0.3 (0.1-0.6); MONO % 5.7 % (1.0-6.0); PLATELET COUNT 244 10^3/uL (120.0-450.0); WHITE BLOOD COUNT 5.4 10^3/ul (4.5-11.0)
[2016-10-04 06:53] LABS: ALB/GLOB RATIO 1.1 (1.1-1.8); ALKALINE PHOSPHATASE 87 U/L (38-133); ALT/SGPT 35 U/L (7-56); AST/SGOT 21 U/L (15-39); BILIRUBIN,TOTAL 0.4 mg/dL (0.2-1.3); BLOOD UREA NITROGEN 7 mg/dL (7-21); CALCIUM 8.2 mg/dL (8.4-10.5); CARBON DIOXIDE 27 mmol/L (21-33); CHLORIDE 106 mmol/L (98-107); GFR AFRICAN-AMERICAN > 60; GLUCOSE,RANDOM 85 mg/dL (70-110); POTASSIUM 3.5 mmol/L (3.6-5.0); SODIUM 140 mmol/L (132-148); TOTAL PROTEIN 6.6 g/dL (5.8-8.3)
[2016-10-04] MEDS: Arformoterol 15 mcg/2 ml Inh Sol IH SCH ×2 (07:45→20:44)
[2016-10-04] MEDS: Budesonide 0.5 mg/2 ml Inhal Susp UD IH SCH ×2 (07:45→20:45)
[2016-10-04] MEDS: Insulin Reg-HIGH-Coverage SC SCH ×4 (07:46→21:52)
--- NOTE | 2016-10-04 07:53 | PN ---
DATE: 10/04/2016 SUBJECTIVE: The patient appears comfortable this morning. She is not short of breath at rest. PHYSICAL EXAMINATION: VITAL SIGNS: Temperature is 98.1, pulse 71, respirations 18, blood pressure 113 /49. Oxygen saturation on nasal cannula is between 93%-98%. HEENT: Normocephalic, atraumatic. No JVD. CARDIOVASCULAR: Positive S1, S2. No S3. LUNGS: Clear bilaterally. EXTREMITIES: Minimal edema. No cyanosis, no clubbing. Calves are nontender to palpation. GASTROINTESTINAL: Abdomen is soft. It is much less distended and much less tender to palpation. Bowel sounds are improved. SKIN: No acute rash. NEUROLOGIC: Limited at the present time. IMPRESSION: 1. Rule out small bowel intussusception. 2. Chronic obstructive pulmonary disease. 3. Severe anxiety with panic attacks. 4. Mild anemia. PLAN: The patient appears very comfortable this morning. She is not short of breath at rest. She has much less abdominal pain. She states to feeling much better overall. On physical exam, her lungs remain clear. In addition, there is no significant alveolar-arterial gradient. I will continue with the current nebulizer treatments and inhaled steroids for now. Surgical evaluation is ongoing and noted. The patient did have a repeat abdominal CAT scan on 2016. On this CAT scan, no evidence of obstruction or intussusception is noted. We await further word from the surgical consultants. GI evaluation is also ongoing. Clinical status of the patient is certainly improved -- compared to the initial presentation. I will discuss the above with Dr. Rodrigez. Chan Johnson MD cc: [id number] TT: 10/04/2016 07:52:48 Confirmation # [id number] Dictation # [id number] en MTDD
--- NOTE | 2016-10-04 08:25 | CP.PCM.PN ---
Subjective - Date & Time of Evaluation Date of Evaluation: 10/04/16 Time of Evaluation: 08:24 - Subjective Subjective: Dr. Jamison Green PGY1 Note for Surgery for Dr. Day Patient seen and examined at bedside this AM. States that her L sided abdominal pain is the same, and reports mild nausea, but denies vomiting. +minor flatus, no BM. Denies fevers, chills, blurry vision, headache, chest pain, SOB, dysuria/ freq/urg, leg pain or swelling Objective - Vital Signs/Intake and Output Vital Signs (last 24 hours): Temp Pulse Resp BP Pulse Ox 97.8 F 74 19 115/59 L 95 10/04/16 07:48 10/04/16 07:48 10/04/16 07:48 10/04/16 07:48 10/04/16 07:48 Intake and Output: 10/04/16 10/04/16 06:59 18:59 Intake Total 2400 0 Balance 2400 0 - Medications Medications: Current Medications Alprazolam (Xanax) 0.5 mg PO TID [facility] PRN Reason: Protocol Last Admin: 10/03/16 17:33 Dose: 0.5 mg Arformoterol Tartrate (Brovana) 15 mcg IH [id number] [facility] Last Admin: 10/04/16 07:45 Dose: 15 mcg Budesonide (Pulmicort Respules) 0.5 mg IH [id number] [facility] Last Admin: 10/04/16 07:45 Dose: 0.5 mg Sodium Chloride (Sodium Chloride 0.9%) 1,000 mls @ 100 mls/hr IV .Q10H [facility] Last Admin: 10/04/16 06:11 Dose: 100 mls/hr Insulin Human Regular (Humulin R High) 0 units SC ACHS [facility] PRN Reason: Protocol Last Admin: 10/04/16 07:46 Dose: Not Given Levetiracetam (Keppra) 500 mg PO BID [facility] Last Admin: 10/03/16 17:33 Dose: 500 mg Ondansetron HCl (Zofran Inj) 4 mg IVP Q4H PRN PRN Reason: Nausea/Vomiting Last Admin: 10/03/16 21:41 Dose: 4 mg Pantoprazole Sodium (Protonix Inj) 40 mg IVP DAILY [facility] Last Admin: 10/03/16 09:10 Dose: 40 mg Paroxetine HCl (Paxil) 20 mg PO DAILY [facility] Last Admin: 10/03/16 09:10 Dose: 20 mg Pregabalin (Lyrica) 75 mg PO HS [facility] Last Admin: 10/03/16 21:39 Dose: 75 mg Zolpidem Tartrate (Ambien) 5 mg PO HS PRN; Protocol PRN Reason: Insomnia Last Admin: 10/03/16 21:42 Dose: 5 mg - Labs Labs: 10/04/16 05:30 10/04/16 05:30 PT 10.6 Seconds (9.9-11.8) 09/30/16 22:10 INR 0.98 (0.93-1.08) 09/30/16 22:10 APTT 25.0 Seconds (23.7-30.8) 09/30/16 22:10 - Constitutional Appears: Non-toxic - Head Exam Head Exam: ATRAUMATIC - Eye Exam Eye Exam: EOMI, Normal appearance - ENT Exam ENT Exam: Mucous Membranes Moist - Neck Exam Neck Exam: Full ROM - Respiratory Exam Respiratory Exam: Clear to Ausculation Bilateral, NORMAL BREATHING PATTERN. absent: Rales, Rhonchi, Wheezes - Cardiovascular Exam Cardiovascular Exam: REGULAR RHYTHM, +S1 - GI/Abdominal Exam Additional comments: Non-Distended, Soft, Tenderness (LUQ, LLQ) - Rectal Exam Rectal Exam: Deferred - Extremities Exam Extremities Exam: Full ROM. absent: Calf Tenderness - Back Exam Back Exam: NORMAL INSPECTION. absent: CVA tenderness (L), CVA tenderness (R) - Neurological Exam Neurological Exam: Alert, Awake, CN II-XII Intact, Oriented x3 - Psychiatric Exam Psychiatric exam: Normal Affect, Normal Mood - Skin Skin Exam: Warm Assessment and Plan - Assessment and Plan (Free Text) Assessment: 56F presenting for possible small bowel intussusception. CT oral contrast 10/02 no active disease, no obstruction, no intussusception Plan: - No indication for surgical intervention at this time - F/u GI recs - Pain control - Cont antiemetic - Cont IVF - as per GI will have trial of full liquid diet to see if tolerate - Serial abdominal Exams; unchanged - Medical management per primary team Pt seen and plan discussed with Dr. Shay Green PGY1
--- NOTE | 2016-10-04 08:34 | PN ---
DATE: 10/02/2016 SUBJECTIVE: The patient is a 56-year-old female who came in to [facility] due to severe abdominal pain, was found to have intussusception. Seen and examined at bedside. The patient still complains of severe pain to the abdomen with some nausea, but no vomiting. States that she is not hu ngry and does not want to eat. As per patient, she states that the pain is 8/10 and when she tries t o move around it gets worse. She has been tolerating IV fluids at this point as well as current iglesia men treatment. VITAL SIGNS: Blood pressure is 103/52, pulse rate 72, temperature is 98.1. O2 saturation is 93 on r oom air. HEENT: Normocephalic, atraumatic. [place] conjunctivae, nonicteric sclerae. CARDIOVASCULAR: Regular. Normal S1, S2 appreciated. LUNGS: Bilateral air entry is positive. No wheezes or rhonchi. ABDOMEN: There are decreased bowel sounds with tenderness to the left upper quadrant with a negative Kee's. LABORATORY DATA: WBCs of 8.3, hemoglobin 11.0, hematocrit 34.1, platelets of 297. Chemistry within normal limits. ASSESSMENT: 1. Abdominal pain. 2. Intussusception 3. Coronary artery disease. 4. Possible small-bowel obstruction. PLAN: At this time, we will convert this patient over to inpatient. Surgery is on board as well as GI and will follow this patient very closely. Prakash Montez MD cc: [id number] TT: 10/02/2016 09:36:58 Confirmation # [id number] Dictation # [id number] yolanda
--- NOTE | 2016-10-04 08:42 | PN ---
DATE: 10/04/2016 I saw the patient this morning in bed. She slept fairly well. She could not take the clear fluids y , and she was throwing them up. I believe surgery put her back to n.p.o. PHYSICAL EXAMINATION: VITAL SIGNS: She has a 97.8 temp, 74 pulse, 115/59 blood pressure, 19 respiratory rate, 95% O2 sat o n room air. HEAD: Atraumatic, normocephalic. Throat is moist. NECK: Supple. HEART: Regular rate. LUNGS: Decreased breath sounds, but clear. EXTREMITIES: No edema. ABDOMEN: Mildly distended. There is still left upper quadrant tenderness, decreased bowel sounds. She is still uncomfortable and felt nauseous and threw up every time she drank something. MEDICATIONS: She is on Ambien, Brovana, insulin, Keppra, Lyrica, Paxil, Protonix, Pulmicort, IV flui ds, Xanax, and Zofran which is every 4 hours. LABORATORY DATA: She has a 5.4 white count, 10.6 hemoglobin, 32.3 hematocrit with 244 platelets. IN R is 0.98. She has a 140 sodium. Potassium is 3.5. I am going to give her a K-rider today. BUN 7, creatinine 0.6. GFR is greater than 60. Sugar is 85. Calcium is 8.2. Total bili is 0.4. AST is 21. ALT is 35. Alk phos 87. Total protein 6.6. She is being seen by pulmonary and surgery. She did have a CAT scan of abdomen and pelvis, which erin wed small-bowel obstruction, intussusception, and then the second one showed clearing of it. She is still nauseous and throwing up, still with abdominal pain. Await surgery and GI evaluation for the p ersistent nausea and vomiting. There is an order for GI that ordered liquid diet this morning. Hope fully, she will do well. She will be on Zofran. We are still trying to increase her diet. We will see how she does, and when she can eat without throwing up, I will discharge her. The patient is here for abdominal pain, small bowel obstruction, and intussusception. Asher Rodrigez DO cc: [id number] TT: 10/04/2016 08:42:06 Confirmation # [id number] Dictation # [id number] jn
--- NOTE | 2016-10-04 09:15 | CP.PCM.CON ---
<Awilda Tsai - Last Filed: 10/04/16 09:08> History of Present Illness - History of Present Illness History of Present Illness: Gastroenterology Fellow/PGY4 Consult Note 56 year old female with history of Hypertension, Diabetes, COPD, falls, Depression, Anxiety,fundoplication 08/2015 presenting with abdominal pain. Patient describes onset of left upper abdomen pain on 09/30 with associated shortness of breath. She was evaluated by PCP with noted tachypnea leading to EMS call and ER presentation. CT A/P showed small bowel intussusception with conservative management and repeat CT with resolution of intussusception. Patient continues to have left upper abdomen pain that she notes has a wax/ waning chronic nature. Notes no bowel movement since admission with daily bowel habits at home. Denies nausea, vomiting, diarrhea, constipation, hematochezia, hematemesis, melena, or weight loss. Prior EGD 03/2016 showed esophageal stenosis starting at 34cm from incisors with proximal dilation, fundoplication , and superficial esophageal erosions. No prior colonoscopy. Family-denies colon cancer, stomach cancer, notes breast cancer in mother, maternal aunt, maternal cousin Social-quit tobacco use for 9 years, denies alcohol or illicit drug use Surgery- fundoplication 08/2015, appendectomy, spine surgery, , hysterectomy, inguinal hernia, cardiac stents Review of Systems - Review of Systems Review of Systems: A 12-point review of systems negative except for as above Past Patient History - Infectious Disease Hx of Infectious Diseases: None - Tetanus Immunizations Tetanus Immunization: Unknown - Past Social History Smoking Status: Former Smoker - CARDIAC Hx Cardiac Disorders: Yes Hx Angina: Yes Hx Cardia Arrhythmia: Yes Hx Hypertension: Yes - PULMONARY Hx Respiratory Disorders: Yes Hx Chronic Obstructive Pulmonary Disease (COPD): Yes - NEUROLOGICAL Hx Neurological Disorder: Yes Hx Seizures: Yes - HEENT Hx HEENT Problems: Yes - RENAL Hx Kidney Stones: Yes - ENDOCRINE/METABOLIC Hx Diabetes Mellitus Type 2: Yes (denies) - HEMATOLOGICAL/ONCOLOGICAL Hx Blood Disorders: No - INTEGUMENTARY Hx Dermatological Problems: No - MUSCULOSKELETAL/RHEUMATOLOGICAL Hx Musculoskeletal Disorders: Yes Hx Arthritis: Yes Hx Back Pain: Yes Hx Falls: Yes Hx Unsteady Gait: Yes - GASTROINTESTINAL Hx Gastrointestinal Disorders: Yes (HIATAL HERNIA) Hx Gastroesophageal Reflux: Yes - GENITOURINARY/GYNECOLOGICAL Hx Urinary Tract Infection: Yes - PSYCHIATRIC Hx Psychophysiologic Disorder: Yes Hx Anxiety: Yes Hx Depression: Yes Hx Panic Symptoms: Yes - SURGICAL HISTORY Hx Surgeries: Yes Hx Appendectomy: Yes Hx Cardiac Catheterization: Yes Hx Coronary Stent: Yes Hx Hysterectomy: Yes Hx Orthopedic Surgery: Yes (BACK SX X7 WITH PLATES AND SCREWS) - ANESTHESIA Hx Anesthesia Reactions: No Hx Malignant Hyperthermia: No Meds Allergies/Adverse Reactions: Allergies Allergy/AdvReac Type Severity Reaction Status Date / Time diphenhydramine Allergy ANGIOEDEMA Verified 04/15/16 20:30 ibuprofen Allergy ANGIOEDEMA Verified 04/15/16 20:30 tomato Allergy RASH Verified 04/15/16 20:30 - Medications Medications: Current Medications Alprazolam (Xanax) 0.5 mg PO TID [facility] PRN Reason: Protocol Last Admin: 10/03/16 17:33 Dose: 0.5 mg Arformoterol Tartrate (Brovana) 15 mcg IH [id number] [facility] Last Admin: 10/04/16 07:45 Dose: 15 mcg Budesonide (Pulmicort Respules) 0.5 mg IH [id number] [facility] Last Admin: 10/04/16 07:45 Dose: 0.5 mg Sodium Chloride (Sodium Chloride 0.9%) 1,000 mls @ 100 mls/hr IV .Q10H [facility] Last Admin: 10/04/16 06:11 Dose: 100 mls/hr Insulin Human Regular (Humulin R High) 0 units SC ACHS [facility] PRN Reason: Protocol Last Admin: 10/04/16 07:46 Dose: Not Given Levetiracetam (Keppra) 500 mg PO BID [facility] Last Admin: 10/03/16 17:33 Dose: 500 mg Ondansetron HCl (Zofran Inj) 4 mg IVP Q4H PRN PRN Reason: Nausea/Vomiting Last Admin: 10/04/16 08:27 Dose: 4 mg Pantoprazole Sodium (Protonix Inj) 40 mg IVP DAILY [facility] Last Admin: 10/03/16 09:10 Dose: 40 mg Paroxetine HCl (Paxil) 20 mg PO DAILY [facility] Last Admin: 10/03/16 09:10 Dose: 20 mg Pregabalin (Lyrica) 75 mg PO HS [facility] Last Admin: 10/03/16 21:39 Dose: 75 mg Zolpidem Tartrate (Ambien) 5 mg PO HS PRN; Protocol PRN Reason: Insomnia Last Admin: 10/03/16 21:42 Dose: 5 mg Physical Exam - Constitutional Appears: Non-toxic, No Acute Distress - Head Exam Head Exam: ATRAUMATIC, NORMOCEPHALIC - Eye Exam Eye Exam: EOMI, PERRL Pupil Exam: PERRL. absent: Miosis, Mydriatic - ENT Exam ENT Exam: Mucous Membranes Moist, Normal Oropharynx - Neck Exam Neck exam: Positive for: Full Rom, Normal Inspection - Respiratory Exam Respiratory Exam: Clear to Auscultation Bilateral. absent: Rales, Rhonchi, Wheezes - Cardiovascular Exam Cardiovascular Exam: RRR, +S1, +S2. absent: Gallop, Rubs - GI/Abdominal Exam GI & Abdominal Exam: Normal Bowel Sounds, Soft, Tenderness. absent: Distended, Guarding, Hernia, Mass, Organomegaly, Rebound Additional comments: LUQ tenderness to palpation - Extremities Exam Extremities exam: Positive for: full ROM. Negative for: pedal edema - Neurological Exam Neurological exam: Alert - Psychiatric Exam Psychiatric exam: Normal Affect, Normal Mood - Skin Skin Exam: Dry, Intact, Normal Color, Warm Results - Vital Signs Recent Vital Signs: Last Vital Signs Temp 97.8 F 10/04/16 07:48 Pulse 74 10/04/16 07:48 Resp 19 10/04/16 07:48 BP 115/59 L 10/04/16 07:48 Pulse Ox 95 10/04/16 07:48 - Labs Result Diagrams: 10/04/16 05:30 10/04/16 05:30 Labs: Laboratory Results - last 24 hr 10/03/16 10/03/16 10/04/16 09:01 21:38 05:30 WBC 6.8 5.4 D RBC 3.32 L 3.30 L Hgb 10.4 L 10.6 L Hct 32.2 L 32.3 L MCV 97.0 97.9 MCH 31.3 32.1 MCHC 32.3 32.8 RDW 14.1 14.0 Plt Count 268 244 MPV 9.8 9.6 Gran % 67.4 52.0 Lymph % (Auto) 26.7 41.4 H Maries % (Auto) 5.9 5.7 Eos % (Auto) 0.0 L 0.7 L Baso % (Auto) 0.0 0.2 Gran # 4.60 2.82 Lymph # 1.8 2.3 Maries # 0.4 0.3 Eos # 0.0 0.0 Baso # 0.00 0.01 Sodium 138 140 Potassium 4.1 3.5 L Chloride 103 106 Carbon Dioxide 25 27 Anion Gap 14 11 BUN 9 7 Creatinine 0.5 0.6 Est GFR ( Amer) > 60 > 60 Est GFR (Non-Af Amer) > 60 > 60 POC Glucose (mg/dL) 81 Random Glucose 100 85 Calcium 8.7 8.2 L Total Bilirubin 0.4 0.4 AST 22 21 ALT 29 35 Alkaline Phosphatase 96 87 Total Protein 7.3 6.6 Albumin 3.9 3.5 Globulin 3.4 3.1 Albumin/Globulin Ratio 1.1 1.1 Assessment & Plan - Assessment and Plan (Free Text) Assessment: 56 year old female with history of Hypertension, Diabetes, COPD, falls, Depression, Anxiety,fundoplication 08/2015 presenting with abdominal pain. CT A/ P showed small bowel intussusception with conservative management and repeat CT with resolution of intussusception. Prior EGD 03/2016 showed esophageal stenosis starting at 34cm from incisors with proximal dilation, fundoplication, and superficial esophageal erosions. No prior colonoscopy. Plan: >notes vomitus episodes yesterday with clear liquids >trial full liquid diet today >may consider upper GI/small bowel series for further evaluation >may consider inpatient EGD if symptoms persist >surgery following-appreciate recommendations >would benefit from outpatient follow up with surgeon at [facility] for fundoplication <Herminio Berry - Last Filed: 10/04/16 10:22> Meds - Medications Medications: Current Medications Alprazolam (Xanax) 0.5 mg PO TID [facility] PRN Reason: Protocol Last Admin: 10/04/16 09:12 Dose: 0.5 mg Arformoterol Tartrate (Brovana) 15 mcg IH [id number] [facility] Last Admin: 10/04/16 07:45 Dose: 15 mcg Budesonide (Pulmicort Respules) 0.5 mg IH [id number] [facility] Last Admin: 10/04/16 07:45 Dose: 0.5 mg Sodium Chloride (Sodium Chloride 0.9%) 1,000 mls @ 100 mls/hr IV .Q10H [facility] Last Admin: 10/04/16 06:11 Dose: 100 mls/hr Insulin Human Regular (Humulin R High) 0 units SC ACHS [facility] PRN Reason: Protocol Last Admin: 10/04/16 07:46 Dose: Not Given Ketorolac Tromethamine (Toradol) 30 mg IVP Q6H PRN PRN Reason: Pain, Mild (1-3) Levetiracetam (Keppra) 500 mg PO BID [facility] Last Admin: 10/04/16 09:12 Dose: 500 mg Ondansetron HCl (Zofran Inj) 4 mg IVP Q4H PRN PRN Reason: Nausea/Vomiting Last Admin: 10/04/16 08:27 Dose: 4 mg Pantoprazole Sodium (Protonix Inj) 40 mg IVP DAILY [facility] Last Admin: 10/04/16 09:12 Dose: 40 mg Paroxetine HCl (Paxil) 20 mg PO DAILY [facility] Last Admin: 10/04/16 09:12 Dose: 20 mg Pregabalin (Lyrica) 75 mg PO HS [facility] Last Admin: 10/03/16 21:39 Dose: 75 mg Zolpidem Tartrate (Ambien) 5 mg PO HS PRN; Protocol PRN Reason: Insomnia Last Admin: 10/03/16 21:42 Dose: 5 mg Results - Vital Signs Recent Vital Signs: Last Vital Signs Temp 97.8 F 10/04/16 07:48 Pulse 74 10/04/16 07:48 Resp 19 10/04/16 07:48 BP 115/59 L 10/04/16 07:48 Pulse Ox 95 10/04/16 07:48 - Labs Result Diagrams: 10/04/16 05:30 10/04/16 05:30 Labs: Laboratory Results - last 24 hr 10/03/16 10/04/16 21:38 05:30 WBC 5.4 D RBC 3.30 L Hgb 10.6 L Hct 32.3 L MCV 97.9 MCH 32.1 MCHC 32.8 RDW 14.0 Plt Count 244 MPV 9.6 Gran % 52.0 Lymph % (Auto) 41.4 H Maries % (Auto) 5.7 Eos % (Auto) 0.7 L Baso % (Auto) 0.2 Gran # 2.82 Lymph # 2.3 Maries # 0.3 Eos # 0.0 Baso # 0.01 Sodium 140 Potassium 3.5 L Chloride 106 Carbon Dioxide 27 Anion Gap 11 BUN 7 Creatinine 0.6 Est GFR ( Amer) > 60 Est GFR (Non-Af Amer) > 60 POC Glucose (mg/dL) 81 Random Glucose 85 Calcium 8.2 L Total Bilirubin 0.4 AST 21 ALT 35 Alkaline Phosphatase 87 Total Protein 6.6 Albumin 3.5 Globulin 3.1 Albumin/Globulin Ratio 1.1 Attending/Attestation - Attestation I have personally seen and examined this patient.: Yes I have fully participated in the care of the patient.: Yes I have reviewed all pertinent clinical information: Yes Notes (Text): 10/04/16 10:13 I have seen and examined patient with GI fellow. Agree with above documentation with the following additions. In brief, this is a 56 year old female with history of HTN, DM, COPD, anxiety, filemon fundoplication in August 2015 who presented to hospital with complaint of progressive dyspnea and abdominal pain. She describes intermittent LUQ abdominal pain, 3/10 intensity that radiated to epigastric region and was associated with nausea and non- bloody emesis. Symptoms began 2 days ago and prior to this she was in usual state of health. She denies fever/chills, weight loss (she has actually gained 20 pounds over past year), rectal bleeding, or change in bowel habits. She had an EGD in March with Dr. Moreno which showed distal esophageal stenosis due to extrinsic compression and she was advised follow up with surgeon which she did not do. DM HTN Anxiety Abdominal pain - CT imaging reviewed by me, initial imaging concerning for possible small bowel intusussception, however repeat imaging with PO contrast shows no evidence of intestinal obstruction or GI pathology - Full liquid diet, advance slowly as tolerated - If symptoms of pain and vomiting persist, would suggest upper GI series for further evaluation - Follow up surgical recommendations - Patient requires outpatient surgical follow up at [facility] where fundoplication was performed - Will continue to monitor patient clinical course
[2016-10-04] MEDS: Morphine 2 mg/ml ISec IVP PRN ×3 (12:11→20:05)
[2016-10-05] MEDS: Morphine 2 mg/ml ISec IVP PRN ×6 (00:10→20:42)
[2016-10-05] MEDS: Sodium Chloride 0.9% 1,000 ML IV SCH ×2 (05:01→11:26)
[2016-10-05] MEDS: Insulin Reg-HIGH-Coverage SC SCH ×4 (07:34→22:00)
--- NOTE | 2016-10-05 07:35 | CP.PCM.PN ---
Subjective - Date & Time of Evaluation Date of Evaluation: 10/05/16 Time of Evaluation: 07:32 - Subjective Subjective: Pt seen and examined at bedside this AM; no acute complaints; denies fevers/ chills, CLOUD, blurry vision, CP, SOB, N/V/D, dysuria/freq/urg/ or lower extremity pain/swelling. Abdominal pain is unchanged, but patient states there were not episodes of vomiting or nausea since yesterday. Objective - Vital Signs/Intake and Output Vital Signs (last 24 hours): Temp Pulse Resp BP Pulse Ox 98.3 F 79 20 128/61 95 10/04/16 16:00 10/04/16 16:00 10/04/16 16:00 10/04/16 16:00 10/04/16 16:00 Intake and Output: 10/05/16 10/05/16 06:59 18:59 Intake Total 1920 Output Total 4 Balance 1916 - Medications Medications: Current Medications Alprazolam (Xanax) 0.5 mg PO TID [facility] PRN Reason: Protocol Last Admin: 10/04/16 18:03 Dose: 0.5 mg Arformoterol Tartrate (Brovana) 15 mcg IH [id number] [facility] Last Admin: 10/04/16 20:44 Dose: 15 mcg Budesonide (Pulmicort Respules) 0.5 mg IH [id number] [facility] Last Admin: 10/04/16 20:45 Dose: 0.5 mg Sodium Chloride (Sodium Chloride 0.9%) 1,000 mls @ 100 mls/hr IV .Q10H [facility] Last Admin: 10/05/16 05:01 Dose: 100 mls/hr Insulin Human Regular (Humulin R High) 0 units SC ACHS [facility] PRN Reason: Protocol Last Admin: 10/04/16 21:52 Dose: Not Given Ketorolac Tromethamine (Toradol) 30 mg IVP Q6H PRN PRN Reason: Pain, Mild (1-3) Last Admin: 10/04/16 10:28 Dose: 30 mg Levetiracetam (Keppra) 500 mg PO BID [facility] Last Admin: 10/04/16 18:03 Dose: 500 mg Morphine Sulfate (Morphine) 1 mg IVP Q3 PRN PRN Reason: Pain, moderate (4-7) Last Admin: 10/05/16 04:57 Dose: 1 mg Ondansetron HCl (Zofran Inj) 4 mg IVP Q4H PRN PRN Reason: Nausea/Vomiting Last Admin: 10/04/16 17:23 Dose: 4 mg Pantoprazole Sodium (Protonix Inj) 40 mg IVP DAILY [facility] Last Admin: 10/04/16 09:12 Dose: 40 mg Paroxetine HCl (Paxil) 20 mg PO DAILY [facility] Last Admin: 10/04/16 09:12 Dose: 20 mg Pregabalin (Lyrica) 75 mg PO HS [facility] Last Admin: 10/04/16 21:53 Dose: 75 mg Zolpidem Tartrate (Ambien) 5 mg PO HS PRN; Protocol PRN Reason: Insomnia Last Admin: 10/04/16 21:57 Dose: 5 mg - Labs Labs: 10/04/16 05:30 10/04/16 05:30 PT 10.6 Seconds (9.9-11.8) 09/30/16 22:10 INR 0.98 (0.93-1.08) 09/30/16 22:10 APTT 25.0 Seconds (23.7-30.8) 09/30/16 22:10 Assessment and Plan - Assessment and Plan (Free Text) Assessment: 56F presenting for possible small bowel intussusception. CT oral contrast 10/02 no active disease, no obstruction, no intussusception Plan: - No indication for surgical intervention at this time - F/u GI recs; most likely recommending outpatient testing however still awaiting final recommendations - Pain control - Cont antiemetic - Cont IVF - Pt tolerated full liquid diet; will advance diet as tolerated; had large BM last night as well. - Serial abdominal Exams; unchanged - Medical management per primary team Pt plan discussed with Dr. Shay Green PGY1
--- NOTE | 2016-10-05 07:38 | PN ---
DATE: 10/05/2016 SUBJECTIVE: The patient appears comfortable this morning. She is not short of breath at rest. PHYSICAL EXAMINATION: VITAL SIGNS: Temperature is 98.3, pulse 79, respirations 18/20, blood pressure 128/61. Oxygen saturation on nasal cannula is 95%. HEENT: Normocephalic, atraumatic. No JVD. CARDIOVASCULAR: Positive S1, S2. No S3. LUNGS: Clear bilaterally. EXTREMITIES: Minimal edema. No cyanosis, no clubbing. Calves are nontender to palpation. GASTROINTESTINAL: Abdomen is soft. It is less distended and less tender to palpation. Bowel sounds are improved. SKIN: No acute rash. NEUROLOGIC: Limited at the present time. IMPRESSION: 1. Rule out small bowel intussusception. 2. Chronic obstructive pulmonary disease. 3. Severe anxiety with panic attacks. 4. Mild anemia. PLAN: The patient appears very comfortable this morning. She is not short of breath at rest. She has much less abdominal discomfort. She states she is feeling much better overall. On physical exam, her lungs remain clear. Oxygen saturation on nasal cannula is 95%. I will continue with the current nebulizer treatments and inhaled steroids for now. I would continue with the surgical evaluation. Inputs are noted. Clinical status of the patient is certainly improved -- compared to the initial presentation. Repeat a.m. labs are pending. I will discuss the above with Dr. Rodrigez. Chan Johnson MD cc: [phone] TT: 10/05/2016 07:37:39 Confirmation # [id number] Dictation # [id number] en MTDD
[2016-10-05 07:44] LABS: ADD MANUAL DIFF? NO
[2016-10-05 08:02] LABS: EOS # 0.1 (0.0-0.7); EOS % 2.5 % (1.5-5.0); GRAN # 2.97 (1.4-6.5); GRAN % 62.7 % (50.0-68.0); HEMATOCRIT 32.8 % (36.0-48.0); LYMPH # 1.3 (1.2-3.4); LYMPH % 27.2 % (22.0-35.0); MEAN CORPUSCULAR HEMOGLOBIN 31.7 pg (25.0-35.0); MEAN CORPUSCULAR HGB CONC 32.6 g/dl (31.0-37.0); MEAN PLATELET VOLUME 9.6 fl (7.0-11.0); MONO # 0.4 (0.1-0.6); MONO % 7.6 % (1.0-6.0); PLATELET COUNT 243 10^3/uL (120.0-450.0); WHITE BLOOD COUNT 4.7 10^3/ul (4.5-11.0)
[2016-10-05 08:15] LABS: ALB/GLOB RATIO 1.1 (1.1-1.8); ALKALINE PHOSPHATASE 87 U/L (38-133); ALT/SGPT 30 U/L (7-56); AST/SGOT 22 U/L (15-39); BILIRUBIN,TOTAL 0.5 mg/dL (0.2-1.3); BLOOD UREA NITROGEN 5 mg/dL (7-21); CALCIUM 8.6 mg/dL (8.4-10.5); CARBON DIOXIDE 26 mmol/L (21-33); CHLORIDE 105 mmol/L (95-110); GFR AFRICAN-AMERICAN > 60; GLUCOSE,RANDOM 92 mg/dL (70-110); POTASSIUM 3.9 mmol/L (3.6-5.0); SODIUM 142 mmol/L (132-148); TOTAL PROTEIN 6.7 g/dL (5.8-8.3)
[2016-10-05] MEDS: Arformoterol 15 mcg/2 ml Inh Sol IH SCH ×2 (08:18→19:51)
[2016-10-05] MEDS: Budesonide 0.5 mg/2 ml Inhal Susp UD IH SCH ×2 (08:18→19:51)
--- NOTE | 2016-10-05 08:20 | CP.PCM.PN ---
<Awilda Tsai - Last Filed: 10/05/16 10:29> Subjective - Date & Time of Evaluation Date of Evaluation: 10/05/16 Time of Evaluation: 08:17 - Subjective Subjective: Gastroenterology Fellow/PGY4 Progress Note Patient notes severe left upper abdominal pain starting last night. Tolerating clear liquids.Denies vomiting. Large watery diarrhea yesterday. A 12-point review of systems negative except for as above. Objective - Vital Signs/Intake and Output Vital Signs (last 24 hours): Temp Pulse Resp BP Pulse Ox 98.3 F 79 20 128/61 95 10/04/16 16:00 10/04/16 16:00 10/04/16 16:00 10/04/16 16:00 10/04/16 16:00 Intake and Output: 10/05/16 10/05/16 06:59 18:59 Intake Total 1920 Output Total 4 Balance 1916 - Medications Medications: Current Medications Alprazolam (Xanax) 0.5 mg PO TID [facility] PRN Reason: Protocol Last Admin: 10/04/16 18:03 Dose: 0.5 mg Arformoterol Tartrate (Brovana) 15 mcg IH [id number] [facility] Last Admin: 10/04/16 20:44 Dose: 15 mcg Budesonide (Pulmicort Respules) 0.5 mg IH [id number] [facility] Last Admin: 10/04/16 20:45 Dose: 0.5 mg Sodium Chloride (Sodium Chloride 0.9%) 1,000 mls @ 100 mls/hr IV .Q10H [facility] Last Admin: 10/05/16 05:01 Dose: 100 mls/hr Insulin Human Regular (Humulin R High) 0 units SC ACHS [facility] PRN Reason: Protocol Last Admin: 10/05/16 07:34 Dose: Not Given Ketorolac Tromethamine (Toradol) 30 mg IVP Q6H PRN PRN Reason: Pain, Mild (1-3) Last Admin: 10/04/16 10:28 Dose: 30 mg Levetiracetam (Keppra) 500 mg PO BID [facility] Last Admin: 10/04/16 18:03 Dose: 500 mg Morphine Sulfate (Morphine) 1 mg IVP Q3 PRN PRN Reason: Pain, moderate (4-7) Last Admin: 10/05/16 04:57 Dose: 1 mg Ondansetron HCl (Zofran Inj) 4 mg IVP Q4H PRN PRN Reason: Nausea/Vomiting Last Admin: 10/04/16 17:23 Dose: 4 mg Pantoprazole Sodium (Protonix Inj) 40 mg IVP DAILY [facility] Last Admin: 10/04/16 09:12 Dose: 40 mg Paroxetine HCl (Paxil) 20 mg PO DAILY [facility] Last Admin: 10/04/16 09:12 Dose: 20 mg Pregabalin (Lyrica) 75 mg PO HS [facility] Last Admin: 10/04/16 21:53 Dose: 75 mg Zolpidem Tartrate (Ambien) 5 mg PO HS PRN; Protocol PRN Reason: Insomnia Last Admin: 10/04/16 21:57 Dose: 5 mg - Labs Labs: 10/05/16 07:00 10/05/16 07:00 PT 10.6 Seconds (9.9-11.8) 09/30/16 22:10 INR 0.98 (0.93-1.08) 09/30/16 22:10 APTT 25.0 Seconds (23.7-30.8) 09/30/16 22:10 - Constitutional Appears: Non-toxic, No Acute Distress - Head Exam Head Exam: ATRAUMATIC, NORMOCEPHALIC - Eye Exam Eye Exam: EOMI, PERRL Pupil Exam: PERRL. absent: Miosis, Mydriatic - ENT Exam ENT Exam: Mucous Membranes Moist, Normal Oropharynx - Neck Exam Neck Exam: Full ROM, Normal Inspection - Respiratory Exam Respiratory Exam: Clear to Ausculation Bilateral. absent: Rales, Rhonchi, Wheezes - Cardiovascular Exam Cardiovascular Exam: RRR, +S1, +S2. absent: Gallop, Rubs - GI/Abdominal Exam GI & Abdominal Exam: Distended, Soft, Tenderness, Normal Bowel Sounds. absent: Firm, Guarding, Rigid, Organomegaly, Rebound Additional comments: LUQ tenderness to palpation - Extremities Exam Extremities Exam: Normal Inspection. absent: Pedal Edema - Neurological Exam Neurological Exam: Alert, Awake - Psychiatric Exam Psychiatric exam: Anxious - Skin Skin Exam: Dry, Intact, Normal Color, Warm Assessment and Plan - Assessment and Plan (Free Text) Assessment: 56 year old female with history of Hypertension, Diabetes, COPD, falls, Depression, Anxiety,fundoplication 08/2015 presenting with abdominal pain. CT A/ P showed small bowel intussusception with conservative management and repeat CT with resolution of intussusception. Prior EGD 03/2016 showed esophageal stenosis starting at 34cm from incisors with proximal dilation, fundoplication, and superficial esophageal erosions. No prior colonoscopy. Plan: >obtain upper GI series >tolerated water intake >continue full liquid diet >supportive care: antiemetics, pain control >surgery following-appreciate recommendations >would benefit from outpatient follow up with surgeon at [facility] for fundoplication >will follow clinical course <Marvel Villanueva - Last Filed: 10/05/16 18:07> Objective - Vital Signs/Intake and Output Vital Signs (last 24 hours): Temp Pulse Resp BP Pulse Ox 98.3 F 68 18 104/52 L 94 L 10/05/16 06:00 10/05/16 06:00 10/05/16 06:00 10/05/16 06:00 10/05/16 06:00 Intake and Output: 10/05/16 10/05/16 06:59 18:59 Intake Total 1920 Output Total 4 Balance 1916 - Medications Medications: Current Medications Alprazolam (Xanax) 0.5 mg PO TID [facility] PRN Reason: Protocol Last Admin: 10/05/16 14:36 Dose: 0.5 mg Arformoterol Tartrate (Brovana) 15 mcg IH [id number] [facility] Last Admin: 10/05/16 08:18 Dose: 15 mcg Budesonide (Pulmicort Respules) 0.5 mg IH [id number] [facility] Last Admin: 10/05/16 08:18 Dose: 0.5 mg Sodium Chloride (Sodium Chloride 0.9%) 1,000 mls @ 100 mls/hr IV .Q10H [facility] Last Admin: 10/05/16 11:26 Dose: 100 mls/hr Insulin Human Regular (Humulin R High) 0 units SC ACHS [facility] PRN Reason: Protocol Last Admin: 10/05/16 12:00 Dose: Not Given Ketorolac Tromethamine (Toradol) 30 mg IVP Q6H PRN PRN Reason: Pain, Mild (1-3) Last Admin: 10/04/16 10:28 Dose: 30 mg Levetiracetam (Keppra) 500 mg PO BID [facility] Last Admin: 10/05/16 09:15 Dose: 500 mg Morphine Sulfate (Morphine) 1 mg IVP Q3 PRN PRN Reason: Pain, moderate (4-7) Last Admin: 10/05/16 12:33 Dose: 1 mg Ondansetron HCl (Zofran Inj) 4 mg IVP Q4H PRN PRN Reason: Nausea/Vomiting Last Admin: 10/05/16 12:34 Dose: 4 mg Pantoprazole Sodium (Protonix Inj) 40 mg IVP DAILY [facility] Last Admin: 10/05/16 09:15 Dose: 40 mg Paroxetine HCl (Paxil) 20 mg PO DAILY [facility] Last Admin: 10/05/16 09:15 Dose: 20 mg Pregabalin (Lyrica) 75 mg PO HS [facility] Last Admin: 10/04/16 21:53 Dose: 75 mg Zolpidem Tartrate (Ambien) 5 mg PO HS PRN; Protocol PRN Reason: Insomnia Last Admin: 10/04/16 21:57 Dose: 5 mg - Labs Labs: 10/05/16 07:00 10/05/16 07:00 PT 10.6 Seconds (9.9-11.8) 09/30/16 22:10 INR 0.98 (0.93-1.08) 09/30/16 22:10 APTT 25.0 Seconds (23.7-30.8) 09/30/16 22:10 Attending/Attestation - Attestation I have personally seen and examined this patient.: Yes I have fully participated in the care of the patient.: Yes I have reviewed all pertinent clinical information, including history, physical exam and plan: Yes Notes (Text): 10/05/16 15:47 56 year old female with history of HTN, DM, COPD, anxiety, filemon fundoplication in August 2015 admitted with dyspnea and abdominal pain. 1. Abdominal pain Plan: - recommend PPI therapy - advance diet as tolerated - UGI series and CT unremarkable - recommend outpatient follow up with her surgeon re: fundoplication - will sign off
--- NOTE | 2016-10-05 08:26 | PN ---
DATE: 10/05/2016 I saw her this morning. I asked her if she took the clear fluids in. She told me she tried and she threw it up. She is also having lots of diarrhea. So she is not be able to keep the fluids down. She is on Ambien, Brovana, insulin coverage, Keppra, Lyrica, morphine, Paxil, Protonix, Pulmicort, IV fluids, Toradol, Xanax, Zofran. PHYSICAL EXAMINATION: VITAL SIGNS: Temp 98.3, 79 pulse, 120/61 blood pressure, 20 respiratory rate, 95% O2 sat on 2 liters nasal cannula. HEENT: Head is atraumatic, normocephalic. Throat is moist. NECK: Supple. HEART: Regular rate. LUNGS: Decreased breath sounds, but clear. ABDOMEN: Softer, less upper quadrant pain, but still there. Decreased bowel sounds, but present. EXTREMITIES: Have no edema. She has a 140 sodium, potassium 3.5 yesterday. Labs for today are not back. White count is 4.7, hem oglobin 10.7, hematocrit is 32.8 and platelets are 243. She is seen by pulmonary and by GI. I want to know what GI wants to do with her. We are ruling out small bowel intussusception, obstruction, chronic obstructive pulmonary disease, severe anxiety. As per GI. I will reach out to them today to see if they have a plan, if they want to do any more tests and we will see how she does. I am hoping to increase her diet if she tolerates it. The patient meier s a small bowel obstruction, intussusception, abdominal pain, history of chronic obstructive pulmonar y disease. We will check on her labs. Asher Rodrigez DO cc: [id number] TT: 10/05/2016 08:25:38 Confirmation # [id number] Dictation # [id number]
[2016-10-05] MEDS ORDERED: Barium Sulfate for Susp 96% w/w 176g Bottle PR ONE (09:40)
--- NOTE | 2016-10-05 12:19 | RAD ---
PROCEDURE: Upper GI and small bowel HISTORY: abdominal pain, previous intussusception COMPARISON: TECHNIQUE: The ad copy writer film was unremarkable. The esophagus is normal in contour. The stomach and duodenum are normal. The small bowel is normal in caliber with no evidence of obstruction and no evidence of intussusception. Contrast reaches the colon within 1-1/2 hours. The terminal ileum is normal. FINDINGS: IMPRESSION: No evidence of obstruction or intussusception
[2016-10-06] MEDS: Morphine 2 mg/ml ISec IVP PRN ×2 (00:45→04:56)
[2016-10-06] MEDS: Sodium Chloride 0.9% 1,000 ML IV SCH (04:00)
[2016-10-06 07:41] LABS: ADD MANUAL DIFF? NO
[2016-10-06 07:43] LABS: BASO # 0.01 K/mm3 (0.0-2.0); BASO % 0.2 % (0.0-3.0); EOS # 0.2 (0.0-0.7); EOS % 3.3 % (1.5-5.0); GRAN # 3.43 (1.4-6.5); GRAN % 56.7 % (50.0-68.0); LYMPH % 32.8 % (22.0-35.0); MEAN CELL VOLUME 96.4 fL (80.0-105.0); MEAN CORPUSCULAR HEMOGLOBIN 31.6 pg (25.0-35.0); MEAN CORPUSCULAR HGB CONC 32.8 g/dl (31.0-37.0); MEAN PLATELET VOLUME 9.3 fl (7.0-11.0); MONO # 0.4 (0.1-0.6); PLATELET COUNT 242 10^3/uL (120.0-450.0); RED CELL DISTRIBUTION WIDTH 13.9 % (11.5-14.5)
[2016-10-06] MEDS: Insulin Reg-HIGH-Coverage SC SCH (08:00)
[2016-10-06] MEDS: Arformoterol 15 mcg/2 ml Inh Sol IH SCH (08:01)
[2016-10-06] MEDS: Budesonide 0.5 mg/2 ml Inhal Susp UD IH SCH (08:01)
[2016-10-06 08:10] VITALS: BP 120/59; PULSE 73; RESP 22; TEMP 98.2; O2SAT 97
[2016-10-06 08:28] LABS: ALB/GLOB RATIO 1.1 (1.1-1.8); ALKALINE PHOSPHATASE 83 U/L (38-133); ALT/SGPT 35 U/L (7-56); AST/SGOT 19 U/L (15-39); BILIRUBIN,TOTAL 0.6 mg/dL (0.2-1.3); BLOOD UREA NITROGEN 5 mg/dL (7-21); CALCIUM 8.6 mg/dL (8.4-10.5); CARBON DIOXIDE 24 mmol/L (21-33); CHLORIDE 108 mmol/L (98-107); GFR AFRICAN-AMERICAN > 60; GLUCOSE,RANDOM 90 mg/dL (70-110); POTASSIUM 3.8 mmol/L (3.6-5.0); SODIUM 140 mmol/L (132-148)
--- NOTE | 2016-10-06 08:38 | PN ---
DATE: 10/06/2016 SUBJECTIVE: The patient appears very comfortable this morning. She is not short of breath at rest. PHYSICAL EXAMINATION: VITAL SIGNS: Temperature is 98.6, pulse 72, respirations 18/20, blood pressure 117/53. Oxygen saturation on room air is 94-95%. HEENT: Normocephalic, atraumatic. No JVD. CARDIOVASCULAR: Positive S1, S2. No S3. LUNGS: Clear bilaterally. EXTREMITIES: Minimal edema. No cyanosis or clubbing. Calves are nontender to palpation. GASTROINTESTINAL: Abdomen is soft. It is much less distended and much less tender to palpation. Bowel sounds are improved. SKIN: No acute rash. NEUROLOGIC: Limited at the present time. IMPRESSION: 1. Rule out small bowel intussusception. 2. Chronic obstructive pulmonary disease. 3. Severe anxiety with panic attacks. 4. Mild anemia. PLAN: The patient appears very comfortable this morning. She is not short of breath at rest. She has much less abdominal discomfort. She states she is feeling much better overall. On physical exam, her lungs remain clear. Oxygen saturation on room air is now 94-95%. I will continue with the current pulmonary medications and inhaled steroids for now. Surgical and GI evaluations are noted. Clinical status of the patient is significantly improved - compared to the initial presentation. I will discuss the above with Dr. Rodrigez. Chan Johnson MD cc: [id number] TT: 10/06/2016 08:37:44 Confirmation # [id number] Dictation # [id number] zully CANTU
--- NOTE | 2016-10-06 09:05 | CP.PCM.PN ---
Subjective - Date & Time of Evaluation Date of Evaluation: 10/06/16 Time of Evaluation: 09:06 - Subjective Subjective: Patient seen and examined at bedside this AM; denies any Fevers/chills, CLOUD, CP, SOB, abdominal pain, N/V/D, dysuria/freq/urg, or lower extremity pain swelling. Objective - Vital Signs/Intake and Output Vital Signs (last 24 hours): Temp Pulse Resp BP Pulse Ox 98.2 F 73 22 120/59 L 97 10/06/16 06:00 10/06/16 06:00 10/06/16 06:00 10/06/16 06:00 10/06/16 06:00 Intake and Output: 10/06/16 10/06/16 06:59 18:59 Intake Total 1860 Balance 1860 - Medications Medications: Current Medications Alprazolam (Xanax) 0.5 mg PO TID [facility] PRN Reason: Protocol Last Admin: 10/05/16 17:10 Dose: 0.5 mg Arformoterol Tartrate (Brovana) 15 mcg IH [id number] [facility] Last Admin: 10/06/16 08:01 Dose: 15 mcg Budesonide (Pulmicort Respules) 0.5 mg IH [id number] [facility] Last Admin: 10/06/16 08:01 Dose: 0.5 mg Sodium Chloride (Sodium Chloride 0.9%) 1,000 mls @ 100 mls/hr IV .Q10H [facility] Last Admin: 10/06/16 04:00 Dose: 100 mls/hr Insulin Human Regular (Humulin R High) 0 units SC ACHS [facility] PRN Reason: Protocol Last Admin: 10/06/16 08:00 Dose: Not Given Ketorolac Tromethamine (Toradol) 30 mg IVP Q6H PRN PRN Reason: Pain, Mild (1-3) Last Admin: 10/04/16 10:28 Dose: 30 mg Levetiracetam (Keppra) 500 mg PO BID [facility] Last Admin: 10/05/16 17:10 Dose: 500 mg Ondansetron HCl (Zofran Inj) 8 mg IVP Q4H PRN PRN Reason: Nausea/Vomiting Pantoprazole Sodium (Protonix Inj) 40 mg IVP DAILY [facility] Last Admin: 10/05/16 09:15 Dose: 40 mg Paroxetine HCl (Paxil) 20 mg PO DAILY [facility] Last Admin: 10/05/16 09:15 Dose: 20 mg Pregabalin (Lyrica) 75 mg PO HS [facility] Last Admin: 10/05/16 21:42 Dose: 75 mg Zolpidem Tartrate (Ambien) 5 mg PO HS PRN; Protocol PRN Reason: Insomnia Last Admin: 10/05/16 21:42 Dose: 5 mg - Labs Labs: 10/06/16 07:00 10/06/16 07:00 PT 10.6 Seconds (9.9-11.8) 09/30/16 22:10 INR 0.98 (0.93-1.08) 09/30/16 22:10 APTT 25.0 Seconds (23.7-30.8) 09/30/16 22:10 - Head Exam Additional comments: Appears Non-toxic Head: Atraumatic Eyes: EOMI, normal appearance ENT: Mucous membranes moist Neck: FROM Resp: CTA B/l, normal breathing pattern, no wheezes rhonci rales Heart: RR, +S1/S2, no murmurs rubs or gallops GI: Non distended, soft, Tenderness in LUQ and LLQ Rectal: Deferred Extrem: FROM; no calf tenderness Back: normal inspection; no CVA tenderness b/l Neuro: Alert ANOx3 CN2-12 intact Skin: Warm Assessment and Plan - Assessment and Plan (Free Text) Assessment: 56F presenting for possible small bowel intussusception. CT oral contrast 10/02 no active disease, no obstruction, no intussusception Plan: - No indication for surgical intervention at this time - F/u GI recs; most likely recommending outpatient testing however still awaiting final recommendations -GI series did not show any signs of obstruction; normal study - Pain control - Cont antiemetic - Cont IVF - Pt tolerated full liquid diet; will advance diet as tolerated - Serial abdominal Exams; unchanged - Medical management per primary team The patient does not need any surgical intervention at this time. Please feel free to consult PRN. Thank you for the interesting consult. Pt plan discussed with Dr. Shay Green PGY1
--- NOTE | 2016-10-06 14:07 | DS ---
I saw her this morning and she told me that GI was going to do an upper endoscopy today and that she has been throwing up all her food but the nurses tell me that she pouring milk into the toilet and sa lion, "look I threw up." I am not sure what is going on here. She tells me she also has a lot of ab dominal pain and appears comfortable in bed. MEDICATIONS: She is on Ambien, Brovana, insulin coverage, Keppra, Lyrica, Paxil, Protonix, Pulmicort , IV fluids, Toradol, Xanax, and Zofran. I discontinued the morphine. I increased her diet. PHYSICAL EXAMINATION: VITAL SIGNS: She has a 98.2 temp, 73 pulse, 120/59 blood pressure, 22 respiratory rate, 97% O2 sat o n room air. HEENT: Head is atraumatic, normocephalic. Throat is moist. NECK: Supple. HEART: Regular rate. LUNGS: Clear to auscultation. ABDOMEN: Now, to me the abdomen is soft with positive bowel sounds, but she grimaces when I poke layne und. EXTREMITIES: Have no edema. I am not sure if that is real or not. LABORATORY: She has a 6 white count, 10.5 hemoglobin, 32 hematocrit with a 242 platelets. A 142 sod ium, potassium 3.9, BUN 5, creatinine 0.6, GFR is greater than 60, sugar is 92, calcium is 8.6, total bili is 0.5, AST is 22, ALT is 30, alk phos is 87, total protein is 6.7. The note from GI says she be discharged. GI radiology procedure says no obstruction. Right now, I a m going to increase her diet and she can go home this afternoon after lunch. I stopped the pain meds , the morphine is gone and she will go home on same medications that she was taking at home. She anastasia l be discharged today. Asher Rodrigez DO cc: [id number] TT: 10/06/2016 14:06:34
== END 2016-10-06 10:23 | disposition home or self-care (01) | DRG 180 ==
LOC: ED 14:51 → ERH 19:16 → 3RNO 20:55 → OBSVTOIN 10-01 11:33
PROVIDERS: ADMIT Family Medicine; ATTEND Family Medicine
DX: K56.1 Intussusception (principal); E11.22 Type 2 diabetes mellitus with diabetic chronic kidney disease; K76.0 Fatty (change of) liver, not elsewhere classified; R56.9 Unspecified convulsions; N18.9 Chronic kidney disease, unspecified; J44.9 Chronic obstructive pulmonary disease, unspecified; R32 Unspecified urinary incontinence; J98.11 Atelectasis; D64.9 Anemia, unspecified; N28.1 Cyst of kidney, acquired; I12.9 Hypertensive chronic kidney disease with stage 1 through stage 4 chronic kidney disease, or unspecified chronic kidney disease; F51.02 Adjustment insomnia; K44.9 Diaphragmatic hernia without obstruction or gangrene; K21.9 Gastro-esophageal reflux disease without esophagitis; K40.90 Unilateral inguinal hernia, without obstruction or gangrene, not specified as recurrent; K52.9 Noninfective gastroenteritis and colitis, unspecified; F41.0 Panic disorder [episodic paroxysmal anxiety]; Z87.01 Personal history of pneumonia (recurrent); Z87.440 Personal history of urinary (tract) infections; Z87.442 Personal history of urinary calculi; Z87.891 Personal history of nicotine dependence; Z90.49 Acquired absence of other specified parts of digestive tract; Z90.710 Acquired absence of both cervix and uterus; Z95.5 Presence of coronary angioplasty implant and graft; I49.9 Cardiac arrhythmia, unspecified; R42 Dizziness and giddiness; M19.90 Unspecified osteoarthritis, unspecified site; M54.9 Dorsalgia, unspecified; R31.9 Hematuria, unspecified; F32.89 Other specified depressive episodes; Z88.6 Allergy status to analgesic agent; Z88.8 Allergy status to other drugs, medicaments and biological substances; Z91.018 Allergy to other foods; K22.8 Other specified diseases of esophagus; K42.9 Umbilical hernia without obstruction or gangrene; R55 Syncope and collapse; Z82.49 Family history of ischemic heart disease and other diseases of the circulatory system; R40.2412 Glasgow coma scale score 13-15, at arrival to emergency department; K80.20 Calculus of gallbladder without cholecystitis without obstruction; K56.60 Unspecified intestinal obstruction; I25.119 Atherosclerotic heart disease of native coronary artery with unspecified angina pectoris; R26.81 Unsteadiness on feet

== ENCOUNTER 2016-12-14 15:38 | Observation (INO) | payer MEDICAID ==
[2016-12-14 15:44] VITALS: BMI 29.4
[2016-12-14] MEDS ORDERED: Levalbuterol 1.25 MG/3 ML Inhal Soln UD IH STA ×2 (15:46→15:47)
[2016-12-14] MEDS ORDERED: Ipratropium 0.02% Inhal Soln (0.5 mg/2.5 ml) UD IH STA ×2 (15:47)
[2016-12-14] MEDS ORDERED: Iohexol 240 (50 ml) ONE (16:13)
[2016-12-14] MEDS ORDERED: Iohexol 350 MG/100 ML VIAL ONE (16:14)
--- NOTE | 2016-12-14 16:18 | ED PDOC ---
Arrival/HPI - General Historian: Patient - History of Present Illness Time/Duration: > week Symptom Onset: Gradual Symptom Course: Worsening Quality: Cramping Severity Level: Severe <Cindy Fletcher - Last Filed: 12/14/16 21:18> <EdwigeKalipadmini - Last Filed: 12/14/16 21:30> - General Chief Complaint: Shortness Of Breath Time Seen by Provider: 12/14/16 15:41 - History of Present Illness Narrative History of Present Illness (Text): 12/14/16 16:01 Patient is a 56 y/o with PMH of COPD, seizure disorder, Back trauma s/p multiple surgeries last one was 2007, hiatal hernia repair 2x last one was in 2015, h/o intussusception send to PMD' office t due to tachycardia and SOB. Patient states for the past few days she has been experiencing left upper quadrant abdominal pain, along with nausea and vomiting. Patient unable to quantify the number of time she vomited. Patient states last time she vomited was yesterday. Patient also reports she had diarrhea yesterday. Patient is also c/o sob for days as well, worst today. SOB is both at rest and with exertion. Patient states she always sleeps with head up due to back pain. Patient is also c/o left sided chest pain, with numbness and tingling in the left arm. Patient c/o sweats, denies fever or chills. Admits to headache, neck pain. Denies dysuria, admits to increased frequency. Patient states she has solid food dysphagia thus she doesn't eat solid food, just drinks fluid. (Cindy Fletcher) Past Medical History - Provider Review Nursing Documentation Reviewed: Yes - Travel History Have you recently traveled outside [place] w/in the past 3 mons?: No - Infectious Disease Hx of Infectious Diseases: None - Tetanus Immunization Tetanus Immunization: Unknown - Past Medical History Past Medical History: No Previous - Cardiac Hx Cardiac Disorders: Yes Hx Angina: Yes Hx Cardiac Arrhythmia: Yes Hx Hypertension: Yes - Pulmonary Hx Respiratory Disorders: Yes Hx Chronic Obstructive Pulmonary Disease (COPD): Yes - Neurological Hx Neurological Disorder: Yes Hx Seizures: Yes - HEENT Hx HEENT Disorder: Yes - Renal Hx Kidney Stones: Yes - Endocrine/Metabolic Hx Diabetes Mellitus Type 2: Yes (denies) - Hematological/Oncological Hx Blood Disorders: No - Integumentary Hx Dermatological Disorder: No - Musculoskeletal/Rheumatological Hx Musculoskeletal Disorders: Yes Hx Arthritis: Yes Hx Back Pain: Yes Hx Falls: Yes Hx Unsteady Gait: Yes - Gastrointestinal Hx Gastrointestinal Disorders: Yes (HIATAL HERNIA) Hx Gastroesophageal Reflux: Yes - Genitourinary/Gynecological Hx Urinary Tract Infection: Yes - Psychiatric Hx Psychophysiologic Disorder: Yes Hx Anxiety: Yes Hx Depression: Yes Hx Panic Disorder: Yes Hx Substance Use: No - Surgical History Hx Appendectomy: Yes Hx Cardiac Catheterization: Yes Hx Coronary Stent: Yes Hx Hysterectomy: Yes Hx Orthopedic Surgery: Yes (BACK SX X7 WITH PLATES AND SCREWS) - Anesthesia Hx Anesthesia Reactions: No Hx Malignant Hyperthermia: No - Suicidal Assessment Feels Threatened In Home Enviroment: No <Cindy Fletcher - Last Filed: 12/14/16 21:18> Family/Social History - Physician Review Nursing Documentation Reviewed: Yes Family/Social History: No Known Family HX Smoking Status: Former Smoker Hx Alcohol Use: No Hx Substance Use: No Hx Substance Use Treatment: No <Cindy Fletcher - Last Filed: 12/14/16 21:18> Allergies/Home Meds <Cindy Fletcher - Last Filed: 12/14/16 21:18> <Fabián Gibbons - Last Filed: 12/14/16 21:30> Allergies/Adverse Reactions: Allergies diphenhydramine Allergy (Verified 12/14/16 15:44) ANGIOEDEMA ibuprofen Allergy (Verified 12/14/16 15:44) ANGIOEDEMA tomato Allergy (Verified 12/14/16 15:44) RASH Home Medications: Home Meds Medication Instructions Recorded Confirmed Fluticasone/Salmeterol 100/50 1 puff IH BID 10/01/16 10/01/16 [Advair Diskus 100/50] Review of Systems - Physician Review All systems were reviewed & negative as marked: Yes - Review of Systems Constitutional: Fatigue, Night Sweats. absent: Fevers Eyes: absent: Normal ENT: absent: Normal Respiratory: SOB. absent: Cough, Sputum, Wheezing Cardiovascular: Chest Pain, Palpitations. absent: Edema, Syncope Gastrointestinal: Abdominal Pain (left upper. ), Diarrhea, Nausea, Vomiting, Appetite Changes, Food Intolerance (dysphagia). absent: Constipation, Anorexia Genitourinary Female: Normal Musculoskeletal: Back Pain, Neck Pain Skin: Normal Neurological: Headache, Dizziness, Seizure (history ). absent: Focal Weakness Endocrine: Polyuria, Polydipsia Hemo/Lymphatic: Normal Psychiatric: Normal <Cindy Fletcher - Last Filed: 12/14/16 21:18> Physical Exam Vital Signs Reviewed: Yes Temperature: Afebrile Blood Pressure: Normal Pulse: Tachycardic Respiratory Rate: Tachypneic Appearance: Positive for: Non-Toxic, Ill-Appearing, Uncomfortable Pain Distress: Moderate Mental Status: Positive for: Alert and Oriented X 3 - Systems Exam Head: Present: Atraumatic, Normocephalic Pupils: Present: PERRL Conjunctiva: No: Icteric Mouth: Present: Dry Neck: Present: Normal Range of Motion Respiratory/Chest: Present: Clear to Auscultation, Respiratory Distress (mild), Accessory Muscle Use, Wheezes, Tachypneic. No: Rales, Rhonchi, Tender to Palpation Cardiovascular: Present: Regular Rate and Rhythm, Normal S1, S2, Tachycardic. No: Murmurs, Bradycardic, Rub, Gallop Abdomen: Present: Tenderness (left upper quadrant. ), Normal Bowel Sounds, Guarding, Scars. No: Distention (obese abdomen.), Peritoneal Signs, Rebound Upper Extremity: Present: Normal Inspection. No: Cyanosis, Edema Lower Extremity: Present: Normal Inspection. No: Edema Neurological: Present: GCS=15, Speech Normal Skin: Present: Warm, Dry, Rashes, Normal Color Psychiatric: Present: Alert, Oriented x 3, Normal Insight, Normal Concentration <Cindy Fletcher - Last Filed: 12/14/16 21:18> Medical Decision Making - Lab Interpretations I have reviewed the lab results: Yes - EKG Interpretation Interpreted by ED Physician: Yes Type: 12 lead EKG <Cindy Fletcher - Last Filed: 12/14/16 21:18> - Lab Interpretations I have reviewed the lab results: Yes <Fabián Gibbons - Last Filed: 12/14/16 21:30> ED Course and Treatment: 12/14/16 16:36 Patient is a 56 y/o with PMH of COPD, seizure disorder, Back trauma s/p multiple surgeries last one was 2007, hiatal hernia repair 2x last one was in 2016, h/o intussusception presenting with left upper quadrant abdominal pain, chest pain and sob. Differentials: recurrent hiatal hernia, perforated viscus, gastric ulcer, ischemic bowel, gastritis, sepsis, uti. chest pain r/o ACS, hap, chf, copd exacerbation. Palan: CBC, CMP, LIPASE, BNP, PT/PTT. CARDIAC ENZYMES , ABG UA, UCX, BCX, Ekg, chest x-ray, CT abdomen and pelvis. PEPCID, solu-medrol ivp 125 mg, duoneb and xoponex treatments. Morphine, zofranand pepcid. Reevaluate and dispo. Discussed with Dr Gibbons 12/14/16 21:26 Patient to be admitted for observation. Dr Rodrigez aware of the admission. ( Cindy Fletcher) Patient seen and examined with resident. Came up with treatment and disposition plan with resident. The patient is a 56 year old female who presents to the emergency department for further evaluation of tachycardia and shortness of breath. Additional HPI details as noted by the resident. On physical examination the patient is in mils respiratory distress and left upper abdominal quadrant tenderness. 12/14/16 21:00 Patient's labs are nondiagnostic and CT a/p shows no acute findings. She will need further treatment for her COPD and her abdominal pain continues despite iv narcotics - will place on observation on for copd exacerbation and intractable abdominal pain. EXAM: CT Abdomen and Pelvis With Intravenous Contrast: Dictated and Authenticated by: Diana Maldonado MD COMPARISON: Prior CT abdomen and pelvis of 10/02/2016 FINDINGS: LIMITATIONS: Streak artifact from metallic hardware in the lumbar spine. LOWER THORAX: Moderate hiatal hernia, containing part of the gastric fundus. The distal esophagus is air-filled and mildly dilated. ABDOMEN: LIVER: Fatty infiltration of the liver. GALLBLADDER AND BILE DUCTS: Small gallstones. No CT evidence of acute cholecystitis. PANCREAS: No CT evidence of acute pancreatitis. SPLEEN: No acute abnormality of the spleen identified. ADRENALS: No acute abnormality of the adrenal glands identified. KIDNEYS AND URETERS: No acute abnormality of the kidneys identified. No evidence of significant hydrouereteronephrosis. STOMACH AND BOWEL: No acute abnormality of the stomach, small bowel or colon identified. No evidence of bowel obstruction. No findings to suggest a small bowel intussusception. APPENDIX: Normal appendix is not seen, however, there are no significant inflammatory changes visualized in the expected location of the appendix to suggest appendicitis. Recommend clinical correlation. PELVIS: BLADDER: No acute abnormality of the bladder identified. REPRODUCTIVE: Uterus is surgically absent. No evidence of large adnexal masses. ABDOMEN and PELVIS: INTRAPERITONEAL SPACE: No evidence of free intraperitoneal air or fluid. BONES/JOINTS: Extensive postoperative changes involving the lumbar spine. A metallic fusion device is in place, and there is evidence of multiple prior laminectomies. Best seen on image 112 of series 2, there is a right transpedicular screw at L4, which appears to be located to the right of the L4 pedicle, interposed between the vertebra and the psoas muscle, however, this finding is stable. Postoperative changes involving the right iliac bone. No acute fractures or other acute bony abnormality identified. SOFT TISSUES: No acute abnormality of the visualized soft tissues is seen. VASCULATURE: No evidence of abdominal aortic aneurysm. No evidence of periaortic hemorrhage. LYMPH NODES: No evidence of diffuse lymphadenopathy. IMPRESSION: - No evidence of significant acute process. No definite cause for pain identified. - Gallstones. - Moderate hiatal hernia. - Metallic spinal hardware at L4 is suspected to be malpositioned, as described , a stable finding. Recommend clinical correlation. - See above for remaining findings. (Fabián Gibbons) - Lab Interpretations Lab Results: 12/14/16 16:10 12/14/16 16:10 Lab Results 12/14/16 16:10: Sodium 137, Potassium 5.4 H, Chloride 105, Carbon Dioxide 20 L, Anion Gap 17, BUN 16, Creatinine 0.6, Est GFR ( Amer) > 60, Est GFR (Non- Af Amer) > 60, Random Glucose 91, Calcium 9.9, Total Bilirubin 1.1, AST 47 H, ALT 15, Alkaline Phosphatase 106, Lactate Dehydrogenase 938 H, Total Creatine Kinase 112, Troponin I < 0.01, NT-Pro-B Natriuret Pep 53.6, Total Protein 9.4 H , Albumin 5.1 H, Globulin 4.3, Albumin/Globulin Ratio 1.2, Lipase 137 12/14/16 16:10: PT 10.2, INR 0.94, APTT 24.5 12/14/16 16:10: WBC 5.8, RBC 3.79, Hgb 12.5, Hct 36.9, MCV 97.4, MCH 33.0, MCHC 33.9, RDW 15.8 H, Plt Count 317, MPV 9.7, Gran % 52.9, Lymph % (Auto) 34.0, [place] % (Auto) 9.6 H, Eos % (Auto) 3.3, Baso % (Auto) 0.2, Gran # 3.08, Lymph # 2.0, [place] # 0.6, Eos # 0.2, Baso # 0.01 12/14/16 16:04: POC Glucose (mg/dL) 83 - RAD Interpretation Radiology Orders: 12/14/16 15:47 ABD & PELVIS PO CONTRAST ONLY [CT] Stat 12/14/16 15:49 CHEST PORTABLE [RAD] Stat - EKG Interpretation EKG Interpretation (Text): 12/14/16 17:06 Sinus Tachycardia with HR of 102, Normal axis deviation, no QTC prolongation No ST/T waves changes. (Cindy Fletcher) - Medication Orders Current Medication Orders: Alprazolam (Xanax) 0.5 mg PO TID [facility] PRN Reason: Protocol Hydromorphone HCl (Dilaudid) 1 mg IVP Q4H PRN PRN Reason: Pain, severe (8-10) Last Admin: 12/14/16 20:20 Dose: 1 mg Sodium Chloride (Sodium Chloride 0.45%) 1,000 mls @ 40 mls/hr IV .Q24H [facility] Last Admin: 12/14/16 20:21 Dose: 40 mls/hr Famotidine (Pepcid 20mg/50ml Premix) 20 mg in 50 mls @ 100 mls/hr IVPB Q12 [facility] Levalbuterol HCl (Xopenex) 1.25 mg IH Q6H [facility] Last Admin: 12/14/16 20:56 Dose: 1.25 mg Levetiracetam (Keppra) 500 mg PO BID [facility] Morphine Sulfate (Morphine) 2 mg IVP Q4H PRN PRN Reason: Pain, moderate (4-7) Ondansetron HCl (Zofran Inj) 4 mg IVP Q4H PRN PRN Reason: Nausea/Vomiting Last Admin: 12/14/16 21:20 Dose: 4 mg Paroxetine HCl (Paxil) 20 mg PO DAILY [facility] Zolpidem Tartrate (Ambien) 5 mg PO HS PRN; Protocol PRN Reason: Insomnia Discontinued Medications Famotidine (Pepcid) 20 mg IVP STAT STA Stop: 12/14/16 15:48 Last Admin: 12/14/16 16:28 Dose: 20 mg Hydromorphone HCl (Dilaudid) 1 mg IVP STAT STA Stop: 12/14/16 18:04 Last Admin: 12/14/16 18:12 Dose: 1 mg Iohexol (Omnipaque 240 (50 Ml)) Confirm Administered Dose 50 ml .ROUTE .STK-MED ONE Stop: 12/14/16 16:14 Iohexol (Omnipaque 350 100 Ml) Confirm Administered Dose 350 mg .ROUTE .STK-MED ONE Stop: 12/14/16 16:15 Ipratropium [place] (Atrovent) 0.5 mg IH STAT STA Stop: 12/14/16 15:48 Last Admin: 12/14/16 16:28 Dose: 0.5 mg Ipratropium [place] (Atrovent) 0.5 mg IH STAT STA Stop: 12/14/16 15:48 Last Admin: 12/14/16 16:28 Dose: 0.5 mg Levalbuterol HCl (Xopenex) 1.25 mg IH STAT STA Stop: 12/14/16 15:47 Last Admin: 12/14/16 16:28 Dose: 1.25 mg Levalbuterol HCl (Xopenex) 1.25 mg IH STAT STA Stop: 12/14/16 15:48 Last Admin: 12/14/16 16:28 Dose: 1.25 mg Methylprednisolone (Solu-Medrol) 125 mg IVP STAT STA Stop: 12/14/16 15:47 Last Admin: 12/14/16 16:28 Dose: 125 mg Morphine Sulfate (Morphine) 2 mg IVP STAT STA Stop: 12/14/16 16:33 Last Admin: 12/14/16 16:53 Dose: 2 mg Re-Assess: MAR Pain Assessment Document 12/14/16 17:53 GERMAN (Rec: 12/14/16 18:12 GERMAN [id number]) Pain Reassessment Is this a pain reassessment? Yes Sleep Is patient sleeping during reassessment? No Presence of Pain Presence of Pain Yes Ondansetron HCl (Zofran Inj) 4 mg IVP STAT STA Stop: 12/14/16 15:48 Last Admin: 12/14/16 16:29 Dose: 4 mg <Cindy Fletcher - Last Filed: 12/14/16 21:18> - PA / SUPERVISOR RESIDENTIAL / Resident Statement / has reviewed & agrees with the documentation as recorded. / has examined the patient and agrees with the treatment plan. - Scribe Statement The provider has reviewed the documentation as recorded by the Scribe <Fabián Gibbons - Last Filed: 12/14/16 21:30> - Scribe Statement Love Gandhi Provider Scribe Attestation: All medical record entries made by the Scribe were at my direction and personally dictated by me. I have reviewed the chart and agree that the record accurately reflects my personal performance of the history, physical exam, medical decision making, and the department course for this patient. I have also personally directed, reviewed, and agree with the discharge instructions and disposition. (Fabián Gibbons) Disposition/Present on Arrival - Present on Arrival Any Indicators Present on Arrival: Yes History of DVT/PE: No History of Uncontrolled Diabetes: No Urinary Catheter: No History of Decub. Ulcer: No History Surgical Site Infection Following: None - Disposition Have Diagnosis and Disposition been Completed?: Yes Disposition Time: 20:59 Patient Plan: Observation <Cindy Fletcher - Last Filed: 12/14/16 21:18> <Fabián Gibbons - Last Filed: 12/14/16 21:30> - Disposition Diagnosis: COPD exacerbation, Intractable abdominal pain Disposition: HOSPITALIZED Patient Problems: Current Active Problems Problem Status Onset COPD exacerbation Acute Intractable abdominal pain Acute Condition: STABLE
[2016-12-14 16:19] LABS: ADD MANUAL DIFF? NO
[2016-12-14] MEDS ORDERED: Morphine 2 mg/ml ISec IVP STA (16:32)
[2016-12-14 16:39] LABS: ALB/GLOB RATIO 1.2 (1.1-1.8); ALKALINE PHOSPHATASE 106 U/L (38-133); ALT/SGPT 15 U/L (7-56); AST/SGOT 47 U/L (15-39); BILIRUBIN,TOTAL 1.1 mg/dL (0.2-1.3); BLOOD UREA NITROGEN 16 mg/dL (7-21); CALCIUM 9.9 mg/dL (8.4-10.5); CARBON DIOXIDE 20 mmol/L (21-33); CHLORIDE 105 mmol/L (98-107); GFR AFRICAN-AMERICAN > 60; GLUCOSE,RANDOM 91 mg/dL (70-110); INR 0.94 (0.93-1.08); LIPASE 137 U/L (23-300); PARTIAL THROMBOPLASTIN TIME 24.5 Seconds (23.7-30.8); POTASSIUM 5.4 mmol/L (3.6-5.0); SODIUM 137 mmol/L (132-148); TOTAL PROTEIN 9.4 g/dL (5.8-8.3)
[2016-12-14 16:40] LABS: BASO # 0.01 K/mm3 (0.0-2.0); BASO % 0.2 % (0.0-3.0); EOS # 0.2 (0.0-0.7); EOS % 3.3 % (1.5-5.0); GRAN # 3.08 (1.4-6.5); GRAN % 52.9 % (50.0-68.0); HEMATOCRIT 36.9 % (36.0-48.0); MEAN CELL VOLUME 97.4 fL (80.0-105.0); MEAN CORPUSCULAR HGB CONC 33.9 g/dl (31.0-37.0); MEAN PLATELET VOLUME 9.7 fl (7.0-11.0); MONO # 0.6 (0.1-0.6); MONO % 9.6 % (1.0-6.0); PLATELET COUNT 317 10^3/uL (120.0-450.0); RED CELL DISTRIBUTION WIDTH 15.8 % (11.5-14.5); WHITE BLOOD COUNT 5.8 10^3/ul (4.5-11.0)
--- NOTE | 2016-12-14 16:50 | RAD ---
HISTORY: sob COMPARISON: No prior. FINDINGS: LUNGS: No active pulmonary disease. PLEURA: No significant pleural effusion identified, no pneumothorax apparent. CARDIOVASCULAR: Normal heart size. Moderate hiatal hernia noted. OSSEOUS STRUCTURES: No significant abnormalities. VISUALIZED UPPER ABDOMEN: Normal. OTHER FINDINGS: None. IMPRESSION: No acute infiltrate. Hiatal hernia.
[2016-12-14 16:57] LABS: TROPONIN I < 0.01 ng/mL
--- NOTE | 2016-12-14 17:53 | CARD ---
APPROVED REPORT EKG Measurement Heart [id number] 150P-2 [id number] <Conclusion> Sinus tachycardia Otherwise normal ECG
[2016-12-14] MEDS ORDERED: HYDROmorphone 1 mg/ml ISec IVP STA (18:03)
[2016-12-14] MEDS ORDERED: Morphine 2 mg/ml ISec IVP PRN (18:27)
[2016-12-14] MEDS ORDERED: Sodium Chloride 0.45% 1,000 ML IV SCH (18:30)
[2016-12-14] MEDS: HYDROmorphone 1 mg/ml ISec IVP PRN (20:20)
--- NOTE | 2016-12-14 20:52 | CT ---
EXAM: CT Abdomen and Pelvis With Intravenous Contrast CLINICAL HISTORY: 56 years old, female; Pain; Abdominal pain; Acute; Additional info: Luq abd pain - h/o small bowel intussusception TECHNIQUE: Axial computed tomography images of the abdomen and pelvis with intravenous contrast. This CT exam was performed using one or more of the following dose reduction techniques: automated exposure control, adjustment of the mA and/or kV according to patient size, and/or use of iterative reconstruction technique. CONTRAST: 100 mL of OMNI 350 administered intravenously. EXAM DATE/TIME: 12/14/2016 3:47 PM COMPARISON: Prior CT abdomen and pelvis of 10/02/2016 FINDINGS: LIMITATIONS: Streak artifact from metallic hardware in the lumbar spine. LOWER THORAX: Moderate hiatal hernia, containing part of the gastric fundus. The distal esophagus is air-filled and mildly dilated. ABDOMEN: LIVER: Fatty infiltration of the liver. GALLBLADDER AND BILE DUCTS: Small gallstones. No CT evidence of acute cholecystitis. PANCREAS: No CT evidence of acute pancreatitis. SPLEEN: No acute abnormality of the spleen identified. ADRENALS: No acute abnormality of the adrenal glands identified. KIDNEYS AND URETERS: No acute abnormality of the kidneys identified. No evidence of significant hydrouereteronephrosis. STOMACH AND BOWEL: No acute abnormality of the stomach, small bowel or colon identified. No evidence of bowel obstruction. No findings to suggest a small bowel intussusception. APPENDIX: Normal appendix is not seen, however, there are no significant inflammatory changes visualized in the expected location of the appendix to suggest appendicitis. Recommend clinical correlation. PELVIS: BLADDER: No acute abnormality of the bladder identified. REPRODUCTIVE: Uterus is surgically absent. No evidence of large adnexal masses. ABDOMEN and PELVIS: INTRAPERITONEAL SPACE: No evidence of free intraperitoneal air or fluid. BONES/JOINTS: Extensive postoperative changes involving the lumbar spine. A metallic fusion device is in place, and there is evidence of multiple prior laminectomies. Best seen on image 112 of series 2, there is a right transpedicular screw at L4, which appears to be located to the right of the L4 pedicle, interposed between the vertebra and the psoas muscle, however, this finding is stable. Postoperative changes involving the right iliac bone. No acute fractures or other acute bony abnormality identified. SOFT TISSUES: No acute abnormality of the visualized soft tissues is seen. VASCULATURE: No evidence of abdominal aortic aneurysm. No evidence of periaortic hemorrhage. LYMPH NODES: No evidence of diffuse lymphadenopathy. IMPRESSION: - No evidence of significant acute process. No definite cause for pain identified. - Gallstones. - Moderate hiatal hernia. - Metallic spinal hardware at L4 is suspected to be malpositioned, as described, a stable finding. Recommend clinical correlation. - See above for remaining findings.
[2016-12-14] MEDS: Levalbuterol 1.25 MG/3 ML Inhal Soln UD IH SCH (20:56)
--- NOTE | 2016-12-14 21:25 | HP ---
HISTORY OF PRESENT ILLNESS: I saw the patient in the office today. She came in barely walking. She has severe abdominal pain, almost threw up in the office. I called 911, they took her to the [facility]. She has done this many times in the past. She has had abdominal pain for the past 24- 48 hours that would not subside. She has a past medical history of severe hiatal hernia repair x 2. She has a history of intussusception. She has COPD, seizure disorder, back trauma with 7 surgeries. She has been experiencing severe pain with nausea and vomiting numerous times. She thought it would get better and it did not. She is also having back pain. She cannot keep any food down. She has done this before. She has angina. She has hypertension, arrhythmias, COPD, seizures, kidney stones, diabetes in the past, depends on her diet, aches and pains, arthritis, back pain, falls, gait problems, hiatal hernia, gastroesophageal reflux, UTI, history of anxiety, depression, panic disorder, appendectomy, cardiac catheterizations, coronary stents, hysterectomy , 7 back surgeries with plates and screws. FAMILY HISTORY: Hypertension and diabetes in the family. SOCIAL HISTORY: She is a former smoker. No alcohol, no drugs. ALLERGIES: SHE IS ALLERGIC TO BENADRYL, IBUPROFEN, TOMATO. MEDICATIONS: She takes numerous medications. I put them back on her orders. She takes Ambien, Keppra, Paxil, Pepcid, Xanax, Xopenex. REVIEW OF SYSTEMS: No change in vision or change in hearing. She is having fatigue and night sweats. No sore throat. No neck pain. She is short of breath. There is chest pain and palpitations with abdominal pain, severe, mostly in the left upper, can palpate it. She is having nausea, vomiting, diarrhea, but cannot keep any food down. No problems urinating. The back pain is persistent. Neck pain has gotten worse with her throwing up. Headache, dizziness and seizures in the past, polyuria, polydipsia. PHYSICAL EXAMINATION: VITAL SIGNS: She has a 98.2 temp, 103 pulse, 110/55 blood pressure, 18 respiratory rate, 96% O2 sat on room air. HEENT: Head is atraumatic, normocephalic. Extraocular muscles are intact. Pupils equal, reactive to light and accommodation. Throat is dry. NECK: Supple. HEART: Regular rate. Normal S1, S2, a little tachycardic. LUNGS: Decreased breath sounds bilaterally, that is her baseline. Mild accessory muscle use. ABDOMEN: Distended, tender all over. Positive guarding. No rebound, no bowel sounds. EXTREMITIES: No edema. NEUROLOGIC: GCS is 15. Speech is normal. Cranial nerves II-XII grossly intact. Alert and oriented x 3. She is toxic ill-appearing, very uncomfortable , but no nausea, vomiting. SKIN: Warm and dry. LABORATORY DATA: She has a 137 sodium, potassium 5.4, BUN 60, creatinine 0.6, GFR is greater than 60, sugar is 91, calcium is 9.9, total bili is 1.1. AST is 47, ALT is, alkaline phosphatase 106. Lactic dehydrogenase is 938. Troponin is less than 0.01. BNP is 53.6. Total protein is 9.4. Lipase is 137. INR is 0.94. White count 5.8, 12.5 hemoglobin, 36.9 hematocrit with 317 platelets. She had a chest x-ray, which shows no acute infiltrate. There is a hiatal hernia shown on the chest x-ray. An EKG shows sinus tachycardia, otherwise normal. There is a CAT scan of the abdomen and pelvis that is pending. That will make the decision whether she goes in as an observation or an inpatient. Will get Dr. Berry, the customer success associate, consulted. She is here for acute abdominal pain. Asher Rodrigez DO cc: [id number] TT: 12/14/2016 21:24:24 cherri CANTU
[2016-12-14] MEDS ORDERED: Famotidine 20mg/50ml 20 MG/50 ML BAG IVPB SCH (22:00)
[2016-12-15] MEDS: HYDROmorphone 1 mg/ml ISec IVP PRN ×2 (00:25→04:53)
[2016-12-15 00:38] LABS: PH,URINE 5.5 (4.7-8.0); URINE APPEARANCE SL CLOUDY (CLEAR); URINE BILIRUBIN NEGATIVE (NEGATIVE); URINE BLOOD SMALL (NEGATIVE); URINE COLOR YELLOW (YELLOW); URINE GLUCOSE (UA) NEGATIVE (NEGATIVE); URINE KETONE NEGATIVE (NEGATIVE); URINE LEUKOCYTE ESTERASE SMALL Leu/uL (NEGATIVE); URINE PROTEIN 30 mg/dL (<30 mg/dL); URINE UROBILINOGEN 0.2 E.U./dL (<1 E.U./dL)
[2016-12-15 00:59] LABS: URINE BACTERIA RARE (NEG); URINE EPITHELIAL CELLS 0 - 2 /hpf (0-5)
[2016-12-15] MEDS: Levalbuterol 1.25 MG/3 ML Inhal Soln UD IH SCH ×4 (01:18→19:23)
[2016-12-15 01:51] VITALS: O2SAT 97
[2016-12-15 04:53] VITALS: RESP 20
[2016-12-15 07:21] LABS: HEMATOCRIT 34.2 % (36.0-48.0); MEAN CELL VOLUME 97.7 fL (80.0-105.0); MEAN CORPUSCULAR HEMOGLOBIN 31.7 pg (25.0-35.0); MEAN CORPUSCULAR HGB CONC 32.5 g/dl (31.0-37.0); MEAN PLATELET VOLUME 9.3 fl (7.0-11.0); RED CELL DISTRIBUTION WIDTH 16.1 % (11.5-14.5); WHITE BLOOD COUNT 8.9 10^3/ul (4.5-11.0)
[2016-12-15 07:35] LABS: ALB/GLOB RATIO 1.3 (1.1-1.8); ALKALINE PHOSPHATASE 98 U/L (38-133); ALT/SGPT 26 U/L (7-56); AST/SGOT 24 U/L (15-39); BILIRUBIN,TOTAL 0.5 mg/dL (0.2-1.3); BLOOD UREA NITROGEN 16 mg/dL (7-21); CALCIUM 9.6 mg/dL (8.4-10.5); CARBON DIOXIDE 22 mmol/L (21-33); CHLORIDE 103 mmol/L (95-110); GFR AFRICAN-AMERICAN > 60; GLUCOSE,RANDOM 125 mg/dL (70-110); POTASSIUM 4.8 mmol/L (3.6-5.0); SODIUM 137 mmol/L (132-148); TOTAL PROTEIN 8.2 g/dL (5.8-8.3)
--- NOTE | 2016-12-15 08:05 | CP.PCM.CON ---
<Jenny Hodgson - Last Filed: 12/15/16 10:34> History of Present Illness - History of Present Illness History of Present Illness: GI consultation note 56 year old female with past medical history of COPD, seizure disorder, back trauma s/p multiple surgeries, hiatal hernia s/p fundoplication (in 2015), h/o intussusception, HTN, DM, depression and anxiety presents for LUQ abdominal pain , N & V. GI is consulted for LUQ abdominal pain. Patient states that her symptoms are chronic but became worse about 4 days ago. She states that she began vomiting NBNB fluid and then her LUQ abdominal pain began. She denies having any fevers, chills, D/C, recent travels or sick contacts. Patient states that since her admission yesterday, she has been experiencing retching but has not vomited anything up. Patient presented with similar symptoms in September. At that time, GI was consulted and recommended PPI therapy and follow up with surgeon who performed the fundoplication at [facility]. Patient had EGD procedure done on 03/2016 which showed esophageal stenosis starting at 34 cm from incisors with proximal dilation, fundoplication and superficial esophageal erosions and gastritis. No history of colonoscopy. 12 point ROS are negative except for the above mentioned. Family-denies colon cancer, stomach cancer, notes breast cancer in mother, maternal aunt, maternal cousin Social-quit tobacco use for 9 years, denies alcohol or illicit drug use Surgery- fundoplication 08/2015, appendectomy, spine surgery, , hysterectomy, inguinal hernia, cardiac stents Meds; see MAR Past Patient History - Infectious Disease Hx of Infectious Diseases: None - Tetanus Immunizations Tetanus Immunization: Unknown - Past Social History Smoking Status: Former Smoker Chewing Tobacco Use: No Cigar Use: No - CARDIAC Hx Cardiac Disorders: Yes Hx Angina: Yes Hx Cardia Arrhythmia: Yes Hx Hypertension: Yes - PULMONARY Hx Respiratory Disorders: Yes Hx Chronic Obstructive Pulmonary Disease (COPD): Yes - NEUROLOGICAL Hx Neurological Disorder: Yes Hx Seizures: Yes - HEENT Hx HEENT Problems: Yes - RENAL Hx Kidney Stones: Yes - ENDOCRINE/METABOLIC Hx Diabetes Mellitus Type 2: Yes (denies) - HEMATOLOGICAL/ONCOLOGICAL Hx Blood Disorders: No - INTEGUMENTARY Hx Dermatological Problems: No - MUSCULOSKELETAL/RHEUMATOLOGICAL Hx Falls: Yes - GASTROINTESTINAL Hx Gastrointestinal Disorders: Yes (HIATAL HERNIA) Hx Gastroesophageal Reflux: Yes - GENITOURINARY/GYNECOLOGICAL Hx Urinary Tract Infection: Yes - PSYCHIATRIC Hx Psychophysiologic Disorder: Yes Hx Anxiety: Yes Hx Depression: Yes Hx Panic Symptoms: Yes Hx Substance Use: Yes - SURGICAL HISTORY Hx Appendectomy: Yes Hx Cardiac Catheterization: Yes Hx Coronary Stent: Yes Hx Hysterectomy: Yes Hx Orthopedic Surgery: Yes (BACK SX X7 WITH PLATES AND SCREWS) - ANESTHESIA Hx Anesthesia Reactions: No Hx Malignant Hyperthermia: No Meds Allergies/Adverse Reactions: Allergies Allergy/AdvReac Type Severity Reaction Status Date / Time diphenhydramine Allergy ANGIOEDEMA Verified 12/14/16 15:44 ibuprofen Allergy ANGIOEDEMA Verified 12/14/16 15:44 tomato Allergy RASH Verified 12/14/16 15:44 - Medications Medications: Current Medications Alprazolam (Xanax) 0.5 mg PO TID [facility] PRN Reason: Protocol Hydromorphone HCl (Dilaudid) 1 mg IVP Q4H PRN PRN Reason: Pain, severe (8-10) Last Admin: 12/15/16 04:53 Dose: 1 mg Sodium Chloride (Sodium Chloride 0.45%) 1,000 mls @ 40 mls/hr IV .Q24H [facility] Last Admin: 12/14/16 20:21 Dose: 40 mls/hr Famotidine (Pepcid 20mg/50ml Premix) 20 mg in 50 mls @ 100 mls/hr IVPB Q12 [facility] Last Admin: 12/14/16 22:34 Dose: 100 mls/hr Levalbuterol HCl (Xopenex) 1.25 mg IH Q6H [facility] Last Admin: 12/15/16 01:18 Dose: 1.25 mg Levetiracetam (Keppra) 500 mg PO BID [facility] Morphine Sulfate (Morphine) 2 mg IVP Q4H PRN PRN Reason: Pain, moderate (4-7) Last Admin: 12/14/16 22:34 Dose: 2 mg Ondansetron HCl (Zofran Inj) 4 mg IVP Q4H PRN PRN Reason: Nausea/Vomiting Last Admin: 12/15/16 03:37 Dose: 4 mg Paroxetine HCl (Paxil) 20 mg PO DAILY [facility] Zolpidem Tartrate (Ambien) 5 mg PO HS PRN; Protocol PRN Reason: Insomnia Physical Exam - Constitutional Appears: Non-toxic, No Acute Distress - Head Exam Head Exam: ATRAUMATIC - Eye Exam Eye Exam: EOMI - ENT Exam ENT Exam: Mucous Membranes Moist - Respiratory Exam Respiratory Exam: Clear to Auscultation Bilateral, NORMAL BREATHING PATTERN. absent: Accessory Muscle Use, Rales, Rhonchi, Wheezes, Respiratory Distress - Cardiovascular Exam Cardiovascular Exam: REGULAR RHYTHM, +S1, +S2. absent: Diastolic murmur, Gallop , Rubs, Systolic Murmur - GI/Abdominal Exam GI & Abdominal Exam: Normal Bowel Sounds, Soft, Tenderness (LUQ). absent: Distended, Firm, Organomegaly, Rigid - Extremities Exam Extremities exam: Negative for: pedal edema, tenderness - Neurological Exam Neurological exam: Alert, Oriented x3 - Psychiatric Exam Psychiatric exam: Normal Affect, Normal Mood - Skin Skin Exam: Dry, Intact, Normal Color, Warm Results - Vital Signs Recent Vital Signs: Last Vital Signs Temp 98 F 12/15/16 04:13 Pulse 101 H 12/15/16 04:13 Resp 20 12/15/16 04:13 BP 137/63 12/15/16 04:13 Pulse Ox 97 12/15/16 01:15 - Labs Result Diagrams: 12/15/16 06:30 12/15/16 06:30 Labs: Laboratory Results - last 24 hr 12/14/16 12/15/16 12/15/16 23:00 06:30 06:30 WBC 8.9 D RBC 3.50 Hgb 11.1 L Hct 34.2 L MCV 97.7 MCH 31.7 MCHC 32.5 RDW 16.1 H Plt Count 284 MPV 9.3 Sodium 137 Potassium 4.8 Chloride 103 Carbon Dioxide 22 Anion Gap 17 BUN 16 Creatinine 0.5 Est GFR ( Amer) > 60 Est GFR (Non-Af Amer) > 60 Random Glucose 125 H Calcium 9.6 Total Bilirubin 0.5 AST 24 ALT 26 Alkaline Phosphatase 98 Total Protein 8.2 Albumin 4.7 Globulin 3.6 Albumin/Globulin Ratio 1.3 Urine Color Yellow Urine Appearance Sl cloudy Urine pH 5.5 Ur Specific [place] >= 1.030 Urine Protein 30 H Urine Glucose (UA) Negative Urine Ketones Negative Urine Blood Small H Urine Nitrate Negative Urine Bilirubin Negative Urine Urobilinogen 0.2 Ur Leukocyte Esterase Small H Urine RBC 1 - 3 Urine WBC 1 - 3 Ur Epithelial Cells 0 - 2 Urine Bacteria Rare Assessment & Plan - Assessment and Plan (Free Text) Assessment: 56 year old female with past medical history of COPD, seizure disorder, back trauma s/p multiple surgeries, hiatal hernia s/p fundoplication (in 2016), h/o intussusception, HTN, DM, depression and anxiety is admitted to hospital for intractable LUQ abd pain, N/V. CT abd/pelvis showed no acute process; + gallstones, moderate hiatal. EGD in 03/2016 showed esophageal stenosis starting at 34 cm from incisors with proximal dilation, fundoplication and superficial esophageal erosions and gastritis. 1. Intractable abd pain, N/V - Improving - Will advance diet as tolerated - continue Zofran prn - continue protonix - pain management - Patient had GI series on 10/05/16 which was negative. W - Continue supportive care - F/U with surgeon at [facility] - Will sign off. Please feel free to re-consult if necessary Case will be discussed with attending - Date & Time Date: 12/15/16 Time: 08:07 <Armando Self MD - Last Filed: 12/15/16 10:40> Meds - Medications Medications: Current Medications Alprazolam (Xanax) 0.5 mg PO TID [facility] PRN Reason: Protocol Last Admin: 12/15/16 09:18 Dose: 0.5 mg Sodium Chloride (Sodium Chloride 0.45%) 1,000 mls @ 40 mls/hr IV .Q24H [facility] Last Admin: 12/14/16 20:21 Dose: 40 mls/hr Levalbuterol HCl (Xopenex) 1.25 mg IH Q6H [facility] Last Admin: 12/15/16 08:07 Dose: 1.25 mg Levetiracetam (Keppra) 500 mg PO BID [facility] Last Admin: 12/15/16 09:18 Dose: 500 mg Morphine Sulfate (Morphine) 2 mg IVP Q3H PRN PRN Reason: Pain, moderate (4-7) Last Admin: 12/15/16 09:17 Dose: 2 mg Ondansetron HCl (Zofran Inj) 4 mg IVP Q4H PRN PRN Reason: Nausea/Vomiting Last Admin: 12/15/16 08:18 Dose: 4 mg Pantoprazole Sodium (Protonix Inj) 40 mg IVP DAILY [facility] Last Admin: 12/15/16 09:17 Dose: 40 mg Paroxetine HCl (Paxil) 20 mg PO DAILY [facility] Last Admin: 12/15/16 09:17 Dose: 20 mg Zolpidem Tartrate (Ambien) 5 mg PO HS PRN; Protocol PRN Reason: Insomnia Results - Vital Signs Recent Vital Signs: Last Vital Signs Temp 98 F 12/15/16 04:13 Pulse 101 H 12/15/16 04:13 Resp 20 12/15/16 04:13 BP 137/63 12/15/16 04:13 Pulse Ox 97 12/15/16 01:15 - Labs Result Diagrams: 12/15/16 06:30 12/15/16 06:30 Labs: Laboratory Results - last 24 hr 12/14/16 12/15/16 12/15/16 23:00 06:30 06:30 WBC 8.9 D RBC 3.50 Hgb 11.1 L Hct 34.2 L MCV 97.7 MCH 31.7 MCHC 32.5 RDW 16.1 H Plt Count 284 MPV 9.3 Sodium 137 Potassium 4.8 Chloride 103 Carbon Dioxide 22 Anion Gap 17 BUN 16 Creatinine 0.5 Est GFR ( Amer) > 60 Est GFR (Non-Af Amer) > 60 Random Glucose 125 H Calcium 9.6 Total Bilirubin 0.5 AST 24 ALT 26 Alkaline Phosphatase 98 Total Protein 8.2 Albumin 4.7 Globulin 3.6 Albumin/Globulin Ratio 1.3 Amylase Lipase Urine Color Yellow Urine Appearance Sl cloudy Urine pH 5.5 Ur Specific [place] >= 1.030 Urine Protein 30 H Urine Glucose (UA) Negative Urine Ketones Negative Urine Blood Small H Urine Nitrate Negative Urine Bilirubin Negative Urine Urobilinogen 0.2 Ur Leukocyte Esterase Small H Urine RBC 1 - 3 Urine WBC 1 - 3 Ur Epithelial Cells 0 - 2 Urine Bacteria Rare 12/15/16 08:00 WBC RBC Hgb Hct MCV MCH MCHC RDW Plt Count MPV Sodium Potassium Chloride Carbon Dioxide Anion Gap BUN Creatinine Est GFR ( Amer) Est GFR (Non-Af Amer) Random Glucose Calcium Total Bilirubin AST ALT Alkaline Phosphatase Total Protein Albumin Globulin Albumin/Globulin Ratio Amylase 88 Lipase 100 Urine Color Urine Appearance Urine pH Ur Specific [place] Urine Protein Urine Glucose (UA) Urine Ketones Urine Blood Urine Nitrate Urine Bilirubin Urine Urobilinogen Ur Leukocyte Esterase Urine RBC Urine WBC Ur Epithelial Cells Urine Bacteria Attending/Attestation - Attestation I have personally seen and examined this patient.: Yes I have fully participated in the care of the patient.: Yes I have reviewed all pertinent clinical information: Yes Notes (Text): 12/15/16 10:38 Patient seen with GI fellow and resident on rounds this am. This is a 56 year old female well known to the service with multiple admissions in the past and poor outpatient follow up with her primary GI and surgeon, with past medical history of COPD, seizure disorder, back trauma s/p multiple surgeries, hiatal hernia s/p fundoplication (in 2016), h/o intussusception, HTN, DM, depression and anxiety is admitted to hospital for intractable LUQ abd pain, N/V which has all resolved today. CT abd/pelvis showed no acute process; + gallstones, moderate hiatal hernia. EGD in 03/2016 showed esophageal stenosis starting at 34 cm from incisors with proximal dilation, fundoplication and superficial esophageal erosions and gastritis. She has outpatient appointment with her GI at [facility]. She is hungry now and will start clear liquid diet and advance as tolerated. Supportive care and protonix and zofran as needed. Upper and lower Gi series are negative.
--- NOTE | 2016-12-15 08:36 | PN ---
DATE: 12/15/2016 I saw her this morning sitting up in bed with a bucket and throwing up actively right in front of me clear mucus and watery kind of liquid. No blood. She is uncomfortable. Belly is very swollen. She has abdominal pain and acute intractable nausea, vomiting. MEDICATIONS: She is on Ambien, Keppra, morphine. Someone gave her Dilaudid last night. I will stop that. Paxil, Pepcid, IV fluids, Xanax, Xopenex and Zofran. PHYSICAL EXAMINATION: VITAL SIGNS: She has a 98 temp, 101 pulse, 137/63 blood pressure, 20 respiratory rate, 94% O2 sat on room air. HEAD: Atraumatic, normocephalic. GENERAL: She is throwing up actively. HEART: Regular rate. LUNGS: Decreased breath sounds bilaterally. ABDOMEN: Distended. No bowel sounds, bloated, looks like it is distended. EXTREMITIES: No edema. LABORATORY DATA: She has an 8.9 white count, 11.1 hemoglobin, 34.2 hematocrit with 284 platelets. Sodium 137, potassium 4.8. BUN , creatinine 0.5. GFR is greater than 60. Sugar is 125. Calcium is 9.6. Total bili is 0.5. AST is 24. ALT is 26, alk phos 98. Total protein is 8.2, albumin 4.7, globulin 3.6. Urine was rare. The abdomen and pelvis CAT scan showed no evidence of significant acute process , no definitely cause for the pain. There were gallstones, moderate hiatal hernia, metallic spinal hardware in place from her surgeries. No obstruction, which is good. There is a consult for GI. Hoping I will see her this morning to help me with the care. She is in observation status. I am going to keep her observation another 24 hours. Continue with IV fluids, pain meds, antinausea medications. She is on Pepcid, Xanax, Zofran. I am going to add Protonix too. Await GI and antinausea medications. Asher Rodrigez DO cc: [id number] TT: 12/15/2016 08:36:29 Confirmation # [id number] Dictation # [id number]
[2016-12-15 09:05] LABS: AMYLASE 88 U/L (35-125); LIPASE 100 U/L (23-300)
[2016-12-15] MEDS: Morphine 2 mg/ml ISec IVP PRN ×3 (09:17→17:36)
[2016-12-15] MEDS ORDERED: Pantoprazole 40mg/100ml IVPB 40 MG/100 ML BAG IVPB SCH (10:00)
[2016-12-15 18:59] VITALS: BP 111/61; PULSE 82; TEMP 98.2
[2016-12-16] MEDS ORDERED: Pantoprazole 40mg/100ml IVPB 40 MG/100 ML BAG IVPB SCH (06:00)
== END 2016-12-15 19:41 | disposition home or self-care (01) ==
LOC: ED 15:38 → ERH 20:59 → 2RNO 12-15 01:47
PROVIDERS: ADMIT Family Medicine; ATTEND Family Medicine
DX: R10.12 Left upper quadrant pain (principal); J44.1 Chronic obstructive pulmonary disease with (acute) exacerbation; G40.909 Epilepsy, unspecified, not intractable, without status epilepticus; I10 Essential (primary) hypertension; F32.9 Major depressive disorder, single episode, unspecified; F41.9 Anxiety disorder, unspecified; M19.90 Unspecified osteoarthritis, unspecified site; K21.9 Gastro-esophageal reflux disease without esophagitis; E11.9 Type 2 diabetes mellitus without complications; K80.20 Calculus of gallbladder without cholecystitis without obstruction; K44.9 Diaphragmatic hernia without obstruction or gangrene; F41.0 Panic disorder [episodic paroxysmal anxiety]; M54.9 Dorsalgia, unspecified; Z87.442 Personal history of urinary calculi; Z87.891 Personal history of nicotine dependence
CPT/HCPCS: 36415; 71010; 74176; 80053; 81001; 82150; 82550; 82948; 83615; 83690; 83880; 84484; 85025; 85027; 85610; 85730; 87040; 87086; 93005; 94640; 94760; 96365; 96374; 96375; 96376; 99285; C9113; G0378; J1170; J2270; J2405; J2930; J7030; Q9966

== ENCOUNTER 2017-05-20 15:56 | Inpatient (IN) | payer MEDICAID ==
[2017-05-20 16:14] VITALS: BMI 30.7
[2017-05-20] MEDS ORDERED: Sodium Chloride 0.9% 1,000 ML IV STA (16:31)
[2017-05-20] MEDS ORDERED: Morphine 4 mg/ml ISec IVP STA ×2 (16:31→19:36)
--- NOTE | 2017-05-20 16:40 | ED PDOC ---
Arrival/HPI - General Chief Complaint: Abdominal Pain Time Seen by Provider: 05/20/17 16:21 Historian: Patient - History of Present Illness Narrative History of Present Illness (Text): 05/20/17 16:20 A 57 year old female, whose past medical history includes COPD, diabetes controlled with diet, seizures, hypertension, gallstones, and kidney cysts, presents to the emergency department c/o abdominal pain and chest pain x 1 day. Pain is squeezing and achy and located to LUQ and radiating to the mid chest wall. Also, the patient reports 2 days ago she went to go sit on her couch and when she got off her couch to use the bathroom she blacked out on the floor for 6 hours. The patient does not know if she hit her head. Today she has left sided neck pain, headache, nausea, and vomiting. The patient denies any fevers back pain, or any other complaints at this time. PMD: Dr. Rodrigez. Time/Duration: < week (x 2 days) Symptom Onset: Sudden Symptom Course: Improving Activities at Onset: Light Context: Home Past Medical History - Provider Review Nursing Documentation Reviewed: Yes - Infectious Disease Hx of Infectious Diseases: None - Tetanus Immunization Tetanus Immunization: Unknown - Reproductive Menopause: Yes - Past Medical History Past Medical History: No Previous - Cardiac Hx Cardiac Disorders: Yes Hx Angina: Yes Hx Cardiac Arrhythmia: Yes Hx Hypertension: Yes - Pulmonary Hx Respiratory Disorders: Yes Hx Chronic Obstructive Pulmonary Disease (COPD): Yes - Neurological Hx Neurological Disorder: Yes Hx Seizures: Yes - HEENT Hx HEENT Disorder: Yes - Renal Hx Kidney Stones: Yes - Endocrine/Metabolic Hx Diabetes Mellitus Type 2: Yes (denies) - Hematological/Oncological Hx Blood Disorders: No - Integumentary Hx Dermatological Disorder: No - Musculoskeletal/Rheumatological Hx Falls: Yes - Gastrointestinal Hx Gastrointestinal Disorders: Yes (HIATAL HERNIA) Hx Gastroesophageal Reflux: Yes - Genitourinary/Gynecological Hx Urinary Tract Infection: Yes - Psychiatric Hx Psychophysiologic Disorder: Yes Hx Anxiety: Yes Hx Depression: Yes Hx Panic Disorder: Yes Hx Substance Use: Yes - Surgical History Hx Appendectomy: Yes Hx Cardiac Catheterization: Yes Hx Coronary Stent: Yes Hx Hysterectomy: Yes Hx Orthopedic Surgery: Yes (BACK SX X7 WITH PLATES AND SCREWS) - Anesthesia Hx Anesthesia Reactions: No Hx Malignant Hyperthermia: No - Suicidal Assessment Feels Threatened In Home Enviroment: No Family/Social History - Physician Review Nursing Documentation Reviewed: Yes Family/Social History: No Known Family HX Smoking Status: Former Smoker Hx Alcohol Use: Yes Hx Substance Use: Yes Hx Substance Use Treatment: No Allergies/Home Meds Allergies/Adverse Reactions: Allergies diphenhydramine Allergy (Verified 12/14/16 15:44) ANGIOEDEMA ibuprofen Allergy (Verified 12/14/16 15:44) ANGIOEDEMA tomato Allergy (Verified 12/14/16 15:44) RASH Home Medications: Home Meds Medication Instructions Recorded Confirmed Fluticasone/Salmeterol 100/50 1 puff IH BID 10/01/16 05/20/17 [Advair Diskus 100/50] Albuterol HFA [Ventolin HFA 90 1 puff INH Q4 PRN 05/20/17 05/20/17 mcg/actuation (8 g)] Pregabalin [Lyrica] 75 mg PO HS 05/20/17 05/20/17 Review of Systems - Physician Review All systems were reviewed & negative as marked: Yes - Review of Systems Constitutional: absent: Fevers Cardiovascular: Chest Pain Gastrointestinal: Abdominal Pain, Nausea, Vomiting Musculoskeletal: absent: Back Pain Neurological: Headache Physical Exam Vital Signs Reviewed: Yes Vital Signs Temp Pulse Resp BP Pulse Ox 05/20/17 20:29 94 H 20 108/65 94 L 05/20/17 19:35 113 H 18 125/105 H 95 05/20/17 16:05 98.2 F 108 H 22 158/88 H 99 Temperature: Afebrile Blood Pressure: Hypertensive Pulse: Tachycardic Respiratory Rate: Normal Appearance: Positive for: Well-Appearing, Non-Toxic, Comfortable, Other ( anxious ) Pain Distress: None Mental Status: Positive for: Alert and Oriented X 3 - Systems Exam Head: Present: Atraumatic, Normocephalic Pupils: Present: PERRL Extroacular Muscles: Present: EOMI Conjunctiva: Present: Normal Mouth: Present: Moist Mucous Membranes, Normal Tounge Neck: Present: Paraspinal Tenderness (left sided ) Respiratory/Chest: Present: Clear to Auscultation, Good Air Exchange, Tender to Palpation (left sided chest wall tenderness). No: Respiratory Distress, Accessory Muscle Use Cardiovascular: Present: Regular Rate and Rhythm, Normal S1, S2. No: Murmurs Abdomen: Present: Tenderness (epigastric & LUQ tenderness), Normal Bowel Sounds , Guarding. No: Distention, Peritoneal Signs, Rebound Upper Extremity: Present: Normal Inspection. No: Cyanosis, Edema Lower Extremity: Present: Normal Inspection. No: Edema Neurological: Present: GCS=15, CN II-XII Intact, Speech Normal Skin: Present: Warm, Dry, Normal Color. No: Rashes Psychiatric: Present: Alert, Oriented x 3, Normal Insight, Normal Concentration , Anxious Medical Decision Making ED Course and Treatment: 05/20/17 16:30 Impression: A 57 year old female with abdominal pain. Differential Diagnosis included but are not limited to: cholecystitis vs biliary colic vs. pancreatitis Plan: -- Cervical spine CT -- Head CT -- Chest X-ray -- Abdomen Complete US -- Labs -- Pepcid, Morphine, IV Fluids -- Urinalysis -- Reassess and disposition Progress Notes: 05/20/17 19:30 Chest X-ray Chest X-ray interpreted by me in unremarkable. PROCEDURE: CT HEAD WITHOUT CONTRAST Mat Inspector : Marva Shah MD Report Date : 05/20/2017 18:49:21 HISTORY:fall r/o ich; poss sz COMPARISON:Noncontrast head CT performed 09/30/16 FINDINGS: Streak artifact obscures evaluation of the skullbase. HEMORRHAGE:No intracranial hemorrhage. BRAIN:Diffuse atrophy with prominence of the ventricles and sulci noted. No mass effect or edema. Scattered periventricular and subcortical white matter hypodensities, which are nonspecific, but often seen with chronic microvascular ischemic disease. Please note that MRI with diffusion imaging is more sensitive in the detection of acute ischemic event. VENTRICLES:No hydrocephalus. CALVARIUM:Unremarkable. PARANASAL SINUSES:Unremarkable as visualized. No significant inflammatory changes. MASTOID AIR CELLS:Unremarkable as visualized. No inflammatory changes. OTHER FINDINGS:Partial opacification of the left greater than right external auditory canals, likely cerumen. IMPRESSION: Generalized atrophy. Nonspecific white matter changes. Abdominal Ultrasound Mat Inspector : Marva Shah MD Report Date : 05/20/2017 18:01:32 HISTORY:abd pain r/o cholecystitis COMPARISON:CT abdomen and pelvis without contrast performed 04/06/17 TECHNIQUE:Sonographic evaluation of the abdomen. FINDINGS: Examination markedly limited by bowel gas. LIVER:Measures 16.6 cm in sagittal dimension. Echogenic liver may be seen in setting of hepatic parenchymal disease or fatty infiltration. No focal hepatic mass identified. The main portal vein was not visualized. No intrahepatic bile duct dilatation. GALLBLADDER:Gallstones. No gallbladder wall thickening. Negative sonographic Kee's sign as assessed by the home planning consultant salesperson. COMMON BILE DUCT:Measures 5 mm. PANCREAS:Not well visualized. RIGHT KIDNEY:Measures 12.0 x 4.3 x 5.1cm. No obstructing calculus or hydronephrosis identified. Previously demonstrated hypodensity on CT performed 04/06/17 as well as renal cysts identified 10/11/16 not appreciated on the current examination ; this is likely result of examination limitations. LEFT KIDNEY:Measures 10.8 x 4.3 x 4.1cm. No obstructing calculus or hydronephrosis identified SPLEEN:Measures approximately 12.5 cm. AORTA:Limited views appear unremarkable. IVC:Limited views appear unremarkable. OTHER FINDINGS:None. IMPRESSION: Markedly limited study as above. Previously demonstrated hypodensity within the right kidney on CT performed 05/13 as well as renal cyst identified 10/11/16 not appreciated on the current examination ; this is likely result of examination limitations. Cholelithiasis. Echogenic liver may be seen in setting of hepatic parenchymal disease or fatty infiltration. 05/20/17 19:39 PROCEDURE: CT Cervical Spine without contrast Mat Inspector : Love Sarah MD Report Date : 05/20/2017 19:26:58 HISTORY:Neck pain rule out fracture COMPARISON:Comparison is made to the previous study dated 04/16/2016 FINDINGS: VERTEBRAE:No fracture. Normal alignment. No destructive bony lesion. DISCS/SPINAL CANAL/NEURAL FORAMINA:[id number] degenerative changes are noted at the cervical spine more prominent at C5-C6. Mild narrowing of the disc is space at C4-C5 and C5-C6. PARASPINAL SOFT TISSUES:Unremarkable. OTHER FINDINGS:None. IMPRESSION: No evidence of acute fracture or subluxation. Degenerative changes more prominent at C5-C6 05/20/17 21:34 NSR at 99 bpm with TWI in III, No ST Elevations, nl intervals. Despite several rounds of pain medication patient continued to have pain. She will be admitted for abdominal pain and chest pain. Case discussed with Dr. Rodrigez who will put patient on his service. Case discussed with Dr. Montez who called back after Dr. Rodirgez already accepted admission. We gave hand off to him as well. Hand off as well to the admitting resident. - Lab Interpretations Lab Results: 05/20/17 16:45 05/20/17 16:45 Lab Results 05/20/17 19:30: Urine Color Yellow, Urine Appearance Clear, Urine pH 6.0, Ur Specific [place] >= 1.030, Urine Protein 30 H, Urine Glucose (UA) Negative, Urine Ketones Negative, Urine Blood Small H, Urine Nitrate Negative, Urine Bilirubin Negative, Urine Urobilinogen 0.2, Ur Leukocyte Esterase Small H, Urine RBC 1 - 3, Urine WBC 2 - 5, Ur Epithelial Cells 4 - 5, Urine Bacteria Rare 05/20/17 16:45: Sodium 140, Potassium 4.4, Chloride 104, Carbon Dioxide 23, Anion Gap 18, BUN 17, Creatinine 0.7, Est GFR ( Amer) > 60, Est GFR (Non- Af Amer) > 60, Random Glucose 110, Calcium 10.3, Total Bilirubin 0.6, AST 25, ALT 30, Alkaline Phosphatase 103, Lactate Dehydrogenase 424, Total Creatine Kinase 133, Troponin I < 0.01, NT-Pro-B Natriuret Pep 62.6, Total Protein 8.6 H , Albumin 4.7, Globulin 3.9, Albumin/Globulin Ratio 1.2, Lipase 100 05/20/17 16:45: PT 11.2, INR 1.03, APTT 28.6 05/20/17 16:45: WBC 7.1 D, RBC 3.56, Hgb 11.9 L, Hct 36.1, MCV 101.4, MCH 33.4 , MCHC 33.0, RDW 13.5, Plt Count 299, MPV 9.9, Gran % 57.0, Lymph % (Auto) 33.4 , [place] % (Auto) 7.6 H, Eos % (Auto) 1.7, Baso % (Auto) 0.3, Gran # 4.02, Lymph # 2.4, Dodge # 0.5, Eos # 0.1, Baso # 0.02 - RAD Interpretation Radiology Orders: 05/20/17 16:31 CHEST PORTABLE [RAD] Stat ABDOMEN COMPLETE [US] Stat 05/20/17 16:33 CERVICAL SPINE W/O CONTRAST [CT] Stat HEAD W/O CONTRAST [CT] Stat - Medication Orders Current Medication Orders: Albuterol (Ventolin Hfa 90 Mcg/Actuation (8 G)) 1 puff INH Q4 PRN PRN Reason: Shortness of Breath Alprazolam (Xanax) 0.5 mg PO TID MANJULA PRN Reason: Protocol Sodium Chloride (Sodium Chloride 0.45%) 1,000 mls @ 40 mls/hr IV .Q24H MANJULA Levetiracetam (Keppra) 500 mg PO BID MANJULA Paroxetine HCl (Paxil) 20 mg PO DAILY MANJULA Pregabalin (Lyrica) 75 mg PO HS MANJULA Fluticasone/Salmeterol (Advair Diskus 100/50) 1 puff IH BID MANJULA Zolpidem Tartrate (Ambien) 5 mg PO HS PRN; Protocol PRN Reason: Insomnia Discontinued Medications Famotidine (Pepcid) 20 mg IVP STAT STA Stop: 05/20/17 16:32 Last Admin: 05/20/17 16:55 Dose: 20 mg IVP Administration Document 05/20/17 16:55 SRE (Rec: 05/20/17 16:55 SRE [id number]) Charges for Administration # of IVP Administrations 1 Hydromorphone HCl (Dilaudid) 1 mg IVP STAT STA Stop: 05/20/17 20:34 Last Admin: 05/20/17 20:45 Dose: 1 mg MAR Pain Assessment Document 05/20/17 20:45 YP (Rec: 05/20/17 21:04 YP [id number]) Pain Reassessment Is this a pain reassessment? Yes Sleep Is patient sleeping during reassessment? No Presence of Pain Presence of Pain Yes IVP Administration Document 05/20/17 20:45 YP (Rec: 05/20/17 21:04 YP [id number]) Charges for Administration # of IVP Administrations 1 Sodium Chloride (Sodium Chloride 0.9%) 1,000 mls @ 1,000 mls/hr IV .Q1H STA Stop: 05/20/17 17:30 Last Admin: 05/20/17 16:53 Dose: 1,000 mls/hr eMAR Start Stop Document 05/20/17 16:53 SRE (Rec: 05/20/17 16:55 SRE [id number]) Intravenous Solution Start Date 05/20/17 Start Time 16:50 End Date 05/20/17 End time 17:50 Total Infusion Time 60 Morphine Sulfate (Morphine) 4 mg IVP STAT STA Stop: 05/20/17 16:32 Last Admin: 05/20/17 16:55 Dose: 4 mg MAR Pain Assessment Document 05/20/17 16:55 SRE (Rec: 05/20/17 16:55 SRE [id number]) Pain Reassessment Is this a pain reassessment? Yes Sleep Is patient sleeping during reassessment? No Presence of Pain Presence of Pain Yes Pain Scale Used Pain Scale Used Numeric Location Pain Location Body Site Abdomen Description Description Intermittent IVP Administration Document 05/20/17 16:55 SRE (Rec: 05/20/17 16:55 SRE [id number]) Charges for Administration # of IVP Administrations 1 Re-Assess: MAR Pain Assessment Document 05/20/17 17:55 SRE (Rec: 05/20/17 19:33 SRE [id number]) Pain Reassessment Is this a pain reassessment? Yes Sleep Is patient sleeping during reassessment? No Presence of Pain Presence of Pain Yes Pain Scale Used Pain Scale Used Numeric Location Pain Location Body Site Back Morphine Sulfate (Morphine) 4 mg IVP STAT STA Stop: 05/20/17 19:37 Last Admin: 05/20/17 19:47 Dose: 4 mg MAR Pain Assessment Document 05/20/17 19:47 YP (Rec: 05/20/17 19:48 YP [id number]) Pain Reassessment Is this a pain reassessment? Yes Sleep Is patient sleeping during reassessment? No Presence of Pain Presence of Pain Yes Pain Scale Used Pain Scale Used Numeric Location Pain Location Body Site Abdomen Description Description Constant Intensity of Pain at present 8 Acceptable Level of Pain 0 Pain Behavior Moaning Restlessness Facial Grimacing IVP Administration Document 05/20/17 19:47 YP (Rec: 05/20/17 19:48 YP [id number]) Charges for Administration # of IVP Administrations 1 - Scribe Statement The provider has reviewed the documentation as recorded by the Scribanupam Mandujano Provider Scribe Attestation: All medical record entries made by the Scribe were at my direction and personally dictated by me. I have reviewed the chart and agree that the record accurately reflects my personal performance of the history, physical exam, medical decision making, and the department course for this patient. I have also personally directed, reviewed, and agree with the discharge instructions and disposition. Disposition/Present on Arrival - Present on Arrival Any Indicators Present on Arrival: No History of DVT/PE: No History of Uncontrolled Diabetes: No Urinary Catheter: No History of Decub. Ulcer: No History Surgical Site Infection Following: None - Disposition Have Diagnosis and Disposition been Completed?: Yes Diagnosis: Chest pain, Abdominal pain Disposition: HOSPITALIZED Disposition Time: 21:36 Patient Plan: Observation Condition: FAIR
[2017-05-20 16:59] LABS: BASO # 0.02 K/mm3 (0.0-2.0); BASO % 0.3 % (0.0-3.0); EOS # 0.1 (0.0-0.7); EOS % 1.7 % (1.5-5.0); GRAN # 4.02 (1.4-6.5); HEMATOCRIT 36.1 % (36.0-48.0); LYMPH # 2.4 (1.2-3.4); LYMPH % 33.4 % (22.0-35.0); MEAN CELL VOLUME 101.4 fl (80.0-105.0); MEAN CORPUSCULAR HEMOGLOBIN 33.4 pg (25.0-35.0); MEAN PLATELET VOLUME 9.9 fl (7.0-11.0); MONO # 0.5 (0.1-0.6); MONO % 7.6 % (1.0-6.0); RED CELL DISTRIBUTION WIDTH 13.5 % (11.5-14.5); WHITE BLOOD COUNT 7.1 10^3/ul (4.5-11.0)
[2017-05-20 17:07] LABS: ALKALINE PHOSPHATASE 103 U/L (38-126); ALT/SGPT 30 U/L (7-56); AST/SGOT 25 U/L (14-36); BILIRUBIN,TOTAL 0.6 mg/dL (0.2-1.3); BLOOD UREA NITROGEN 17 mg/dL (7-21); CALCIUM 10.3 mg/dL (8.4-10.5); CARBON DIOXIDE 23 mmol/L (21-33); CHLORIDE 104 mmol/L (98-107); GFR AFRICAN-AMERICAN > 60; GLUCOSE,RANDOM 110 mg/dL (70-110); LIPASE 100 U/L (23-300); POTASSIUM 4.4 mmol/L (3.6-5.0); SODIUM 140 mmol/L (132-148); TOTAL PROTEIN 8.6 g/dL (5.8-8.3)
[2017-05-20 17:09] LABS: INR 1.03 (0.93-1.08); PARTIAL THROMBOPLASTIN TIME 28.6 Seconds (25.1-36.5)
[2017-05-20 17:10] LABS: ALB/GLOB RATIO 1.2 (1.1-1.8)
[2017-05-20 17:18] LABS: TROPONIN I < 0.01 ng/mL
--- NOTE | 2017-05-20 18:07 | US ---
HISTORY: abd pain r/o cholecystitis COMPARISON: CT abdomen and pelvis without contrast performed 04/06/17 TECHNIQUE: Sonographic evaluation of the abdomen. FINDINGS: Examination markedly limited by bowel gas. LIVER: Measures 16.6 cm in sagittal dimension. Echogenic liver may be seen in setting of hepatic parenchymal disease or fatty infiltration. No focal hepatic mass identified. The main portal vein was not visualized. No intrahepatic bile duct dilatation. GALLBLADDER: Gallstones. No gallbladder wall thickening. Negative sonographic Kee's sign as assessed by the director market intelligence. COMMON BILE DUCT: Measures 5 mm. PANCREAS: Not well visualized. RIGHT KIDNEY: Measures 12.0 x 4.3 x 5.1cm. No obstructing calculus or hydronephrosis identified. Previously demonstrated hypodensity on CT performed 04/06/17 as well as renal cysts identified 10/11/16 not appreciated on the current examination ; this is likely result of examination limitations. LEFT KIDNEY: Measures 10.8 x 4.3 x 4.1cm. No obstructing calculus or hydronephrosis identified SPLEEN: Measures approximately 12.5 cm. AORTA: Limited views appear unremarkable. IVC: Limited views appear unremarkable. OTHER FINDINGS: None. IMPRESSION: Markedly limited study as above. Previously demonstrated hypodensity within the right kidney on CT performed 04/06/17 as well as renal cyst identified 10/11/16 not appreciated on the current examination ; this is likely result of examination limitations. Cholelithiasis. Echogenic liver may be seen in setting of hepatic parenchymal disease or fatty infiltration.
--- NOTE | 2017-05-20 18:50 | CT ---
PROCEDURE: CT HEAD WITHOUT CONTRAST. HISTORY: fall r/o ich; poss sz COMPARISON: Noncontrast head CT performed 09/30/16 TECHNIQUE: Axial computed tomography images were obtained through the head/brain without intravenous contrast. Radiation dose: Total exam DLP = 968.76 mGy-cm. This CT exam was performed using one or more of the following dose reduction techniques: Automated exposure control, adjustment of the mA and/or kV according to patient size, and/or use of iterative reconstruction technique. FINDINGS: Streak artifact obscures evaluation of the skullbase. HEMORRHAGE: No intracranial hemorrhage. BRAIN: Diffuse atrophy with prominence of the ventricles and sulci noted. No mass effect or edema. Scattered periventricular and subcortical white matter hypodensities, which are nonspecific, but often seen with chronic microvascular ischemic disease. Please note that MRI with diffusion imaging is more sensitive in the detection of acute ischemic event. VENTRICLES: No hydrocephalus. CALVARIUM: Unremarkable. PARANASAL SINUSES: Unremarkable as visualized. No significant inflammatory changes. MASTOID AIR CELLS: Unremarkable as visualized. No inflammatory changes. OTHER FINDINGS: Partial opacification of the left greater than right external auditory canals, likely cerumen. IMPRESSION: Generalized atrophy. Nonspecific white matter changes.
--- NOTE | 2017-05-20 19:28 | CT ---
PROCEDURE: CT Cervical Spine without contrast HISTORY: Neck pain rule out fracture COMPARISON: Comparison is made to the previous study dated 04/16/2016 TECHNIQUE: Axial computed tomography images were obtained of the cervical spine without the use of intravenous contrast. Coronal and sagittal reformatted images were created and reviewed. Radiation dose: Total exam DLP = 422.7 mGy-cm. This CT exam was performed using one or more of the following dose reduction techniques: Automated exposure control, adjustment of the mA and/or kV according to patient size, and/or use of iterative reconstruction technique. FINDINGS: VERTEBRAE: No fracture. Normal alignment. No destructive bony lesion. DISCS/SPINAL CANAL/NEURAL FORAMINA: [id number] degenerative changes are noted at the cervical spine more prominent at C5-C6. Mild narrowing of the disc is space at C4-C5 and C5-C6. PARASPINAL SOFT TISSUES: Unremarkable. OTHER FINDINGS: None. IMPRESSION: No evidence of acute fracture or subluxation. Degenerative changes more prominent at C5-C6
[2017-05-20 19:34] LABS: URINE BILIRUBIN NEGATIVE (NEGATIVE); URINE BLOOD SMALL (NEGATIVE); URINE GLUCOSE (UA) NEGATIVE (NEGATIVE); URINE KETONE NEGATIVE (NEGATIVE); URINE LEUKOCYTE ESTERASE SMALL Leu/uL (NEGATIVE); URINE PROTEIN 30 mg/dL (<30 mg/dL); URINE UROBILINOGEN 0.2 E.U./dL (<1 E.U./dL)
[2017-05-20 19:35] LABS: URINE APPEARANCE CLEAR (CLEAR); URINE COLOR YELLOW (YELLOW)
[2017-05-20 19:46] LABS: URINE BACTERIA RARE (NEG)
[2017-05-20] MEDS ORDERED: HYDROmorphone 1 mg/ml ISec IVP STA ×2 (20:33→23:18)
[2017-05-20] MEDS: Sodium Chloride 0.45% 1,000 ML IV SCH (23:15)
--- NOTE | 2017-05-21 00:36 | CP.PCM.HP ---
History of Present Illness - History of Present Illness History of Present Illness: CC: Stomach pain Patient is a 57 y/o F with pmh of COPD, diet controlled diabetes, htn, seizures , h/o intussusception, back trauma s/p surgeries, hiatal hernia, gerd, anxiety and depression presenting with abdominal pain, nausea and vomiting. Patient states she was at Dr Rodrigez's office earlier today and was sent to the ED due to abdominal pain and shortness of breath. Patient states earlier this morning, she was standing in the middle of the house, and found herself on the floor, thinks that was between 10 am to 4 pm, when she woke up she didn't remember how she got on the floor. Patient thinks it might have been her seizures. Denies tongue bite, bowel or bladder incontinent. Patient states the abdominal pain has been going on for months. The nausea, vomiting and loose stool are intermittent. Patient have not taking any pain meds at home to relieve the pain. States the Dilaudid she received in the ed helped. ROS: Denies headache, dizziness, lightheadedness. Admits to chronic dry cough, cp when she coughs. Admits to epigastric pain. admits to nausea, vomiting, loose bowel movement. Denies dysurea, hematuria. PMH: COPD, diet controlled diabetes, htn, seizures, h/o intussusception, back trauma s/p surgeries, hiatal hernia, gerd, anxiety and depression. PSH: Cardiac cath, appendectomy, cardiac stents, hysterectomy, 7 back surgeries with screws. FMH: HTN and DM in the family Social: tobacco tobacco, denies alcohol or illicit drug use. Admits to prior history of opiod abuse, s/p rehab and in remission for 2 years. Allergy: nkda Home meds: please see emr for full list. Present on Admission - Present on Admission Any Indicators Present on Admission: No History of DVT/PE: No History of Uncontrolled Diabetes: No Urinary Catheter: No Decubitus Ulcer Present: No Review of Systems - Review of Systems All systems: reviewed and no additional remarkable complaints except Review of Systems: As per HPI. Past Patient History - Infectious Disease Hx of Infectious Diseases: None - Tetanus Immunizations Tetanus Immunization: Unknown - Past Social History Smoking Status: Former Smoker Alcohol: None Drugs: Denies Home Situation {Lives}: Alone - CARDIAC Hx Cardiac Disorders: Yes Hx Angina: Yes Hx Cardia Arrhythmia: Yes Hx Hypertension: Yes - PULMONARY Hx Respiratory Disorders: Yes Hx Chronic Obstructive Pulmonary Disease (COPD): Yes - NEUROLOGICAL Hx Neurological Disorder: Yes Hx Seizures: Yes - HEENT Hx HEENT Problems: Yes - RENAL Hx Kidney Stones: Yes - ENDOCRINE/METABOLIC Hx Diabetes Mellitus Type 2: Yes (denies) - HEMATOLOGICAL/ONCOLOGICAL Hx Blood Disorders: No - INTEGUMENTARY Hx Dermatological Problems: No - MUSCULOSKELETAL/RHEUMATOLOGICAL Hx Falls: Yes - GASTROINTESTINAL Hx Gastrointestinal Disorders: Yes (HIATAL HERNIA) Hx Gastroesophageal Reflux: Yes - GENITOURINARY/GYNECOLOGICAL Hx Urinary Tract Infection: Yes - PSYCHIATRIC Hx Psychophysiologic Disorder: Yes Hx Anxiety: Yes Hx Depression: Yes Hx Panic Symptoms: Yes Hx Substance Use: Yes - SURGICAL HISTORY Hx Appendectomy: Yes Hx Cardiac Catheterization: Yes Hx Coronary Stent: Yes Hx Hysterectomy: Yes Hx Orthopedic Surgery: Yes (BACK SX X7 WITH PLATES AND SCREWS) - ANESTHESIA Hx Anesthesia Reactions: No Hx Malignant Hyperthermia: No Meds Allergies/Adverse Reactions: Allergies Allergy/AdvReac Type Severity Reaction Status Date / Time diphenhydramine Allergy ANGIOEDEMA Verified 12/14/16 15:44 ibuprofen Allergy ANGIOEDEMA Verified 12/14/16 15:44 tomato Allergy RASH Verified 12/14/16 15:44 Physical Exam - Constitutional Appears: No Acute Distress, Older Than Stated Age, Chronically Ill - Head Exam Head Exam: ATRAUMATIC, NORMAL INSPECTION, NORMOCEPHALIC - Eye Exam Eye Exam: EOMI, Normal appearance, PERRL. absent: Scleral icterus Pupil Exam: NORMAL ACCOMODATION, PERRL - ENT Exam ENT Exam: Mucous Membranes Dry - Neck Exam Neck exam: Positive for: Normal Inspection - Respiratory Exam Respiratory Exam: Clear to Auscultation Bilateral, NORMAL BREATHING PATTERN. absent: Decreased Breath Sounds, Prolonged Expiratory Phase, Rales, Rhonchi, Wheezes, Respiratory Distress, Stridor - Cardiovascular Exam Cardiovascular Exam: REGULAR RHYTHM, RRR, +S1, +S2. absent: Systolic Murmur - GI/Abdominal Exam GI & Abdominal Exam: Normal Bowel Sounds, Soft. absent: Distended, Firm, Guarding, Hernia, Tenderness - Extremities Exam Extremities exam: Positive for: normal inspection. Negative for: pedal edema - Back Exam Additional comments: Lower back with old surgical incision. - Neurological Exam Neurological exam: Alert, Oriented x3 - Psychiatric Exam Psychiatric exam: Normal Affect, Normal Mood - Skin Skin Exam: Dry, Intact, Normal Color, Warm Results - Vital Signs Recent Vital Signs: Last Vital Signs Temp 98.2 F 05/20/17 16:05 Pulse 100 H 05/20/17 23:25 Resp 22 05/20/17 23:25 BP 127/80 05/20/17 23:25 Pulse Ox 95 05/20/17 23:25 - Labs Result Diagrams: 05/20/17 16:45 05/20/17 16:45 Assessment & Plan - Assessment and Plan (Free Text) Assessment: Patient is a 57 y/o with PMH of COPD, diet controlled diabetes, htn, seizures, h /o intussusception, back trauma s/p surgeries, hiatal hernia, gerd, anxiety and depression presenting with worsening abdominal pain, nausea, vomiting and loose stool. Plan: 1) Abdominal pain likely gastroentertitis. - R/o c diff , r/o UTI versus gerd due to hiatal hernia. - Abdominal u/s with fatty liver and cholelithiasis, patient had CT abdomen and pelvis last month with similar finding - Zofran prn for nausea/vomiting - IV hydration with NS - Urine culture sent. - Dilaudid prn for pain - GI is consulted 2) Syncope- likely vasaovagal, r/o seizures, TIA versus metabolic versus arrhythmias. - CT head with generalized atrophy and Ct neck with degenerative changes. - Observe on tele - Troponin negative x1, will continue to trend. Pending ekg. - Will obtain carotid u/s - Will obtain orthostatic vital signs - IV hydration with NS@40 CC/hr. 2) COPD- will continue with albuterol treatments, brovana and pulmocort. 3) Htn- diet controlled 4) Seizures- continue with keppra 500 mg bid 5) Back trauma s/p surgeries- continue with flexeril, 6) Anxiety and depression- continue with paxil. On xanax for anxiety. 7) Insomnia- continue with Ambien 8) DVT/GI prophylaxis: Lovenox sc and protonix. Patient seen, examined, will discuss with Dr Montez. - Date & Time Date: 05/21/17 Time: 01:15
--- NOTE | 2017-05-21 01:27 | HP ---
I know Betty very well for many years in the hospital and I saw her in the office today. HISTORY OF PRESENT ILLNESS: She is a 57-year-old female, who gives me history of actually possibly fainting or waking up, blacking out at home. She does not know if she hit her head or not, but the left side of her neck is very stiff like a torticollis. There is a headache, some nausea and vomiting. She is in my office actually throwing up. I gave her the garbage bag right in my office since she is throwing up in front of me. She tried to take couple of sips of water and started throwing right up again. She is very uncomfortable, she is having severe abdominal pain by throwing up, then she said she had chest pain. So, I sent her to the emergency room, called 911. PAST MEDICAL HISTORY: This is a 57-year-old female who is throwing up, abdominal pain, history of passing out at home, possibly hitting her head. She has COPD, diabetes, seizures, hypertension, gallstones, kidney cyst with multiple issues medically, angina, arrhythmia, hypertension, kidney stones, falls, hiatal hernia, gastroesophageal reflux, urinary tract infection, anxiety, depression. Also, she has substance abuse, panic disorder, appendectomy, cardiac catheterization, coronary stent, hysterectomy, 7 back surgeries of patent screws, numerous levels. FAMILY HISTORY: Hypertension in the family. SOCIAL HISTORY: She is a former smoker. She does alcohol and drugs. ALLERGIES: SHE IS ALLERGIC TO DIPHENHYDRAMINE, IBUPROFEN, TOMATOES. MEDICATIONS: She takes fluticasone, Ventolin inhaler, Lyrica, and Ambien. REVIEW OF SYSTEMS: No acute vision or hearing changes. She is actively throwing up. No sore throat. There is chest pain and abdominal pain, severe. There is back pain. Legs are okay. PHYSICAL EXAMINATION: GENERAL: Very uncomfortable, in distress. VITAL SIGNS: She has 98.2 temperature in the emergency room, 113 pulse, 22 respiratory rate, 158/88 blood pressure and 125/105 blood pressure with 99% O2 sat. HEENT: Head is atraumatic and normocephalic. She is well appearing . She is very uncomfortable, not doing well, actively throwing up. Extraocular muscles are intact. Throat is moist. NECK: Supple. She cannot turn her head to the left side with paraspinal tenderness and spasm. HEART: Regular rate. Normal S1 and S2. LUNGS: Decreased breath sounds bilaterally, but clear to auscultation. ABDOMEN: Soft. There is epigastric tenderness, diffusely tender all over with + bowel sounds. No guarding. EXTREMITIES: No edema. NEUROLOGIC: She is alert and oriented x3. GCS is 15. Cranial nerves II through XII are intact. Speech is normal. SKIN: Warm and dry. Normal color. LYMPHATIC: Thyroid midline. No palpable lymphadenopathy appreciated. LABORATORY DATA: She had workup in the emergency room for all her issues. She had an abdominal ultrasound which showed echogenic liver, may be seen in setting of hepatic parenchymal disease. She had a cervical spine CAT scan which showed no evidence of acute fracture-subluxation, degenerative changes, more prominent in C5-C6. She had a head CT which showed generalized atrophy and nonspecific white matter changes. She had lab tests, 7.1 white count, 11.9 hemoglobin, 36.1 hematocrit, and 299 platelets; 1.03 INR; 140 sodium, potassium 4.4, BUN 17, creatinine 0.7, GFR is greater than 60, sugar is 110, calcium is 10.3. Total bilirubin is 0.6, AST is 25, ALT is 30, alkaline phosphatase 103. Lactate dehydrogenase is 424. Troponin I is less than 0.01. BNP is 62.6. Total protein is 8.6, albumin is 4.7, globulin is 3.9. Lipase is 100. Bacteria rare in the urine. IMPRESSION: She had intractable vomiting, abdominal pain, and a syncopal episode at home. She will be put on observation, gave her some Flexeril, have a consult with GI and Neurology. She will have troponins q. 8 hours x2 more and see how she does, hopefully that will be negative. If she does well and she eats well, my plan is to discharge her tomorrow hopefully. She will feel better in the morning, she will be n.p.o. with IV fluids. Asher Rodrigez DO [facility] # [id number] MTDJewell
[2017-05-21] MEDS ORDERED: Albuterol 0.042% Inhal Sol (1.25 mg/3 mL) UD IH PRN (02:00)
[2017-05-21] MEDS: HYDROmorphone 1 mg/ml ISec IVP PRN ×2 (03:12→09:25)
[2017-05-21 07:10] LABS: HEMATOCRIT 32.7 % (36.0-48.0); MEAN CELL VOLUME 102.2 fl (80.0-105.0); MEAN CORPUSCULAR HEMOGLOBIN 33.1 pg (25.0-35.0); MEAN CORPUSCULAR HGB CONC 32.4 g/dl (31.0-37.0); WHITE BLOOD COUNT 9.1 10^3/ul (4.5-11.0)
[2017-05-21 07:24] LABS: POTASSIUM 4.5 mmol/L (3.6-5.0)
[2017-05-21 07:25] LABS: TROPONIN I < 0.01 ng/mL
[2017-05-21] MEDS: Budesonide 0.25 mg/2 ml Inhal Susp UD IH SCH ×2 (07:34→19:31)
[2017-05-21] MEDS: Arformoterol 15 mcg/2 ml Inh Sol IH SCH ×2 (07:34→19:31)
[2017-05-21 07:40] LABS: ALB/GLOB RATIO 1.3 (1.1-1.8); ALKALINE PHOSPHATASE 95 U/L (38-126); ALT/SGPT 31 U/L (7-56); AST/SGOT 27 U/L (14-36); BILIRUBIN,TOTAL 0.7 mg/dL (0.2-1.3); BLOOD UREA NITROGEN 15 mg/dL (7-21); CALCIUM 9.4 mg/dL (8.4-10.5); CARBON DIOXIDE 24 mmol/L (21-33); CHLORIDE 103 mmol/L (98-107); GFR AFRICAN-AMERICAN > 60; GLUCOSE,RANDOM 118 mg/dL (70-110); SODIUM 138 mmol/L (132-148); TOTAL PROTEIN 7.8 g/dL (5.8-8.3)
[2017-05-21] MEDS ORDERED: Arformoterol 15 mcg/2 ml Inh Sol IH SCH (08:00)
--- NOTE | 2017-05-21 08:20 | CP.PCM.CON ---
History of Present Illness - History of Present Illness History of Present Illness: Asked by Dr. Rodrigez for a GI consultation on this patient. 57 year old female with history of seizure disorder, COPD, multiple back surgeries, DM, HTN, hiatal hernia s/p fundoplication in 2016 who presents to hospital with complaint of abdominal discomfort and vomiting. She describes having a syncopal event on tuesday while in her bathroom with loss of consciousness for several hours. Following this she has had persistent LUQ abdominal pain, 5/ 10 intensity along with vomiting. She has had recurrent hospital admissions with similar complaints in the past. She reportedly tried eating applesauce yesterday but was unable to tolerate. She had a loose bowel movement yesterday morning. She denies fever/chills, weight loss, sick contacts, or recent travel. She had an EGD in 2016, no prior colonoscopy. Social history: former smoker, no ETOH use Family history: breast cancer (mother) Review of Systems - Review of Systems Review of Systems: - All other comprehensive 12 point review of systems performed, negative - Constitutional Constitutional: absent: Anorexia, Chills, Daytime Sleepiness, Excessive Sweating , Fatigue, Fever, Frequent Falls, Headache, Increased Appetite, Lethargy, Malaise, Night Sweats, Snoring, Sleep Apnea, Weight Gain, Weight Loss, Weakness , Other - Cardiovascular Cardiovascular: absent: Acrocyanosis, Chest Pain, Chest Pain at Rest, Chest Pain with Activity, Claudication, Diaphoresis, Dyspnea, Dyspnea on Exertion, Edema, Irregular Heart Rhythm, Pain Radiating to Arm/Neck/Jaw, Leg Edema, Leg Ulcers, Lightheadedness, Orthopnea, Palpitations, Paroxysmal Nocturnal Dyspnea, Pedal Edema, Radiating Pain, Rapid Heart Rate, Slow Heart Rate, Syncope, Other - Respiratory Respiratory: absent: Cough, Dyspnea, Hemoptysis, Dyspnea on Exertion, Wheezing, Snoring, Stridor, Pain on Inspiration, Chest Congestion, Excessive Mucous Production, Change in Mucous Color, Pain with Coughing, Other - Gastrointestinal Gastrointestinal: Abdominal Pain, Vomiting - Musculoskeletal Musculoskeletal: absent: Abnormal Gait, Arthralgias, Atrophy, Back Pain, Deformity, Joint Swelling, Limited Range of Motion, Loss of Height, Muscle Cramps, Muscle Weakness, Myalgias, Neck Pain, Numbness, Radiating Pain into Limb , Stiffness, Tingling, Other - Neurological Neurological: Syncope Past Patient History - Infectious Disease Hx of Infectious Diseases: None - Tetanus Immunizations Tetanus Immunization: Unknown - Past Social History Smoking Status: Former Smoker Alcohol: None Drugs: Denies Home Situation {Lives}: Alone - CARDIAC Hx Cardiac Disorders: Yes Hx Angina: Yes Hx Cardia Arrhythmia: Yes Hx Hypertension: Yes - PULMONARY Hx Respiratory Disorders: Yes Hx Chronic Obstructive Pulmonary Disease (COPD): Yes - NEUROLOGICAL Hx Neurological Disorder: Yes Hx Seizures: Yes - HEENT Hx HEENT Problems: Yes - RENAL Hx Kidney Stones: Yes - ENDOCRINE/METABOLIC Hx Diabetes Mellitus Type 2: Yes (denies) - HEMATOLOGICAL/ONCOLOGICAL Hx Blood Disorders: No - INTEGUMENTARY Hx Dermatological Problems: No - MUSCULOSKELETAL/RHEUMATOLOGICAL Hx Falls: Yes - GASTROINTESTINAL Hx Gastrointestinal Disorders: Yes (HIATAL HERNIA) Hx Gastroesophageal Reflux: Yes - GENITOURINARY/GYNECOLOGICAL Hx Urinary Tract Infection: Yes - PSYCHIATRIC Hx Psychophysiologic Disorder: Yes Hx Anxiety: Yes Hx Depression: Yes Hx Panic Symptoms: Yes Hx Substance Use: Yes - SURGICAL HISTORY Hx Appendectomy: Yes Hx Cardiac Catheterization: Yes Hx Coronary Stent: Yes Hx Hysterectomy: Yes Hx Orthopedic Surgery: Yes (BACK SX X7 WITH PLATES AND SCREWS) - ANESTHESIA Hx Anesthesia Reactions: No Hx Malignant Hyperthermia: No Meds Allergies/Adverse Reactions: Allergies Allergy/AdvReac Type Severity Reaction Status Date / Time diphenhydramine Allergy ANGIOEDEMA Verified 12/14/16 15:44 ibuprofen Allergy ANGIOEDEMA Verified 12/14/16 15:44 tomato Allergy RASH Verified 12/14/16 15:44 - Medications Medications: Current Medications Albuterol Sulfate (Albuterol 0.042% Inhal Thais (1.25mg/3ml) Ud) 1.25 mg IH [id number] PRN PRN Reason: Shortness of Breath Alprazolam (Xanax) 0.5 mg PO TID MANJULA PRN Reason: Protocol Arformoterol Tartrate (Brovana) 15 mcg IH [id number] [facility] Last Admin: 05/21/17 07:34 Dose: 15 mcg Budesonide (Pulmicort Respules) 0.25 mg IH [id number] [facility] Last Admin: 05/21/17 07:34 Dose: 0.25 mg Cyclobenzaprine HCl (Flexeril) 5 mg PO HS [facility] Last Admin: 05/20/17 23:09 Dose: 5 mg Enoxaparin Sodium (Lovenox) 30 mg SC DAILY MANJULA PRN Reason: Protocol Hydromorphone HCl (Dilaudid) 1 mg IVP Q6H PRN PRN Reason: Pain, moderate (4-7) Last Admin: 05/21/17 03:12 Dose: 1 mg Sodium Chloride (Sodium Chloride 0.45%) 1,000 mls @ 40 mls/hr IV .Q24H MANJULA Last Admin: 05/20/17 23:15 Dose: 40 mls/hr Levetiracetam (Keppra) 500 mg PO BID MANJULA Ondansetron HCl (Zofran Inj) 4 mg IVP Q4 PRN PRN Reason: Nausea/Vomiting Last Admin: 05/21/17 06:49 Dose: 4 mg Pantoprazole Sodium (Protonix Inj) 40 mg IVP DAILY MANJULA Paroxetine HCl (Paxil) 20 mg PO DAILY MANJULA Pregabalin (Lyrica) 75 mg PO HS MANJULA Last Admin: 05/20/17 23:15 Dose: 75 mg Zolpidem Tartrate (Ambien) 5 mg PO HS PRN; Protocol PRN Reason: Insomnia Physical Exam - Constitutional Appears: Non-toxic, No Acute Distress - Head Exam Head Exam: NORMAL INSPECTION - Eye Exam Eye Exam: EOMI, Normal appearance - ENT Exam ENT Exam: Mucous Membranes Moist - Respiratory Exam Respiratory Exam: Clear to Auscultation Bilateral - Cardiovascular Exam Cardiovascular Exam: REGULAR RHYTHM, +S1, +S2 - GI/Abdominal Exam GI & Abdominal Exam: Normal Bowel Sounds, Soft, Tenderness Additional comments: mild tenderness to palpation in LUQ, no rebound/guarding no palpable hepato/splenomegaly - Extremities Exam Extremities exam: Positive for: normal inspection - Neurological Exam Neurological exam: Alert, CN II-XII Intact, Oriented x3, Reflexes Normal - Psychiatric Exam Psychiatric exam: Normal Affect, Normal Mood - Skin Skin Exam: Dry, Intact, Normal Color, Warm Results - Vital Signs Recent Vital Signs: Last Vital Signs Temp 98.2 F 05/20/17 16:05 Pulse 93 H 05/21/17 05:25 Resp 20 05/21/17 00:25 BP 127/80 05/20/17 23:25 Pulse Ox 95 05/20/17 23:25 - Labs Result Diagrams: 05/21/17 06:00 05/21/17 06:00 Labs: Laboratory Results - last 24 hr 05/21/17 05/21/17 06:00 06:00 WBC 9.1 D RBC 3.20 L Hgb 10.6 L Hct 32.7 L MCV 102.2 MCH 33.1 MCHC 32.4 RDW 14.0 Plt Count 265 MPV 10.0 Sodium 138 Potassium 4.5 Chloride 103 Carbon Dioxide 24 Anion Gap 16 BUN 15 Creatinine 0.5 L Est GFR ( Amer) > 60 Est GFR (Non-Af Amer) > 60 Random Glucose 118 H Calcium 9.4 Total Bilirubin 0.7 AST 27 ALT 31 Alkaline Phosphatase 95 Troponin I < 0.01 Total Protein 7.8 Albumin 4.4 Globulin 3.4 Albumin/Globulin Ratio 1.3 Assessment & Plan - Assessment and Plan (Free Text) Assessment: Seizure disorder COPD DM / HTN History of hiatal hernia s/p fundoplication Abdominal pain, vomiting Plan: - Full liquid diet as tolerated - If persistent vomiting noted, would suggest abdominal XR obstructive series - Anti-emetic therapy PRN - Limit use of narcotic pain medication as this may worsen existing symptoms - Follow up neurology recommendations for recent syncope workup - Following hospital discharge, patient will need to follow up with surgical team at [facility] regarding status of fundoplication - Will continue to monitor patient clinical course
--- NOTE | 2017-05-21 08:29 | RAD ---
HISTORY: chest and abd pain COMPARISON: No prior. FINDINGS: LUNGS: No active pulmonary disease. PLEURA: No significant pleural effusion identified, no pneumothorax apparent. CARDIOVASCULAR: Normal. OSSEOUS STRUCTURES: No significant abnormalities. VISUALIZED UPPER ABDOMEN: Normal. OTHER FINDINGS: None. IMPRESSION: No active disease.
[2017-05-21] MEDS: Enoxaparin 30 mg Syringe SC SCH (09:08)
--- NOTE | 2017-05-21 11:42 | PN ---
DATE: SUBJECTIVE: Betty came in with chest pain and with abdominal pain with nausea and vomiting. I did not see her in room this morning. She was actually doing an ultrasound, and she was throwing up in the gurney outside of ultrasound with the bucket. She is still not feeling well. Does not want to eat and is uncomfortable. PHYSICAL EXAMINATION: VITAL SIGNS: She has 98.6 temperature, 98 pulse, 110/62 blood pressure, 19 respiratory rate, 90% O2 sat on room air. HEENT: Head is atraumatic, normocephalic. HEART: Regular rate. LUNGS: Decreased breath sounds and clear. ABDOMEN: Decreased bowel sounds, soft, she is tight now with throwing up, discomfort all over the belly. EXTREMITIES: No edema. LABORATORY DATA: She has 9.1 white count, 10.6 hemoglobin, 32.7 hematocrit, 265 platelets. She has 138 sodium, potassium 4.5. BUN 15, creatinine 0.5. GFR is greater than 60. Sugar is 118. Calcium is 9.4. Total bilirubin is 0.7. AST is 27. ALT is 31. Alkaline phosphatase is 95. Troponins are less than 0.01 times 2. Total protein 7.8, lipase is 100. MEDICATIONS: She is currently on albuterol, Ambien, Brovana, Dilaudid, Flexeril, Keppra, Lovenox, Lyrica, Paxil, Protonix, Pulmicort, IV fluids, alprazolam, Zofran. I am going to discontinue the Dilaudid and put her on Toradol. ASSESSMENT AND PLAN: She is having intractable nausea and vomiting with abdominal pain. She was seen by Gastroenterology. I am waiting for Neurology to see her due to her syncope episode. I am hoping by tomorrow she will improve and I could discharge her home. We will increase her diet. Gastroenterology has her now on liquid diet. I will see her if she improves. Check her labs tomorrow. Asher Rodrigez DO
[2017-05-22] MEDS: Sodium Chloride 0.45% 1,000 ML IV SCH (06:06)
[2017-05-22 07:10] LABS: HEMATOCRIT 33.8 % (36.0-48.0); MEAN CELL VOLUME 102.4 fl (80.0-105.0); MEAN CORPUSCULAR HEMOGLOBIN 32.4 pg (25.0-35.0); MEAN CORPUSCULAR HGB CONC 31.7 g/dl (31.0-37.0); MEAN PLATELET VOLUME 9.8 fl (7.0-11.0); WHITE BLOOD COUNT 4.5 10^3/ul (4.5-11.0)
[2017-05-22 07:40] LABS: ALB/GLOB RATIO 1.3 (1.1-1.8); ALKALINE PHOSPHATASE 97 U/L (38-126); ALT/SGPT 27 U/L (7-56); AST/SGOT 34 U/L (14-36); BILIRUBIN,TOTAL 0.8 mg/dL (0.2-1.3); BLOOD UREA NITROGEN 12 mg/dL (7-21); CALCIUM 9.4 mg/dL (8.4-10.5); CARBON DIOXIDE 28 mmol/L (21-33); CHLORIDE 101 mmol/L (98-107); GFR AFRICAN-AMERICAN > 60; GLUCOSE,RANDOM 97 mg/dL (70-110); POTASSIUM 3.8 mmol/L (3.6-5.0); SODIUM 140 mmol/L (132-148); TOTAL PROTEIN 7.4 g/dL (5.8-8.3)
[2017-05-22] MEDS: Arformoterol 15 mcg/2 ml Inh Sol IH SCH ×2 (08:05→20:00)
[2017-05-22] MEDS: Budesonide 0.25 mg/2 ml Inhal Susp UD IH SCH ×2 (08:05→20:00)
--- NOTE | 2017-05-22 08:07 | CP.PCM.PN ---
Subjective - Date & Time of Evaluation Date of Evaluation: 05/22/17 Time of Evaluation: 08:03 - Subjective Subjective: Patient seen and examined, resting in bed comfortably. She continues to endorse LUQ abdominal pain and multiple episodes of non-bloody emesis overnight with a sensation that pills/liquids are getting "stuck" as she attempts swallowing. She denies fever/chills. 12 point review of systems performed, negative aside from mentioned above. Objective - Vital Signs/Intake and Output Vital Signs (last 24 hours): Temp Pulse Resp BP Pulse Ox 98.1 F 82 20 109/75 94 L 05/22/17 00:30 05/22/17 05:39 05/22/17 00:30 05/22/17 00:30 05/22/17 00:30 Intake and Output: 05/22/17 05/22/17 06:59 18:59 Intake Total 920 Balance 920 - Medications Medications: Current Medications Acetaminophen (Tylenol 325mg Tab) 650 mg PO Q4H PRN PRN Reason: Pain, Mild (1-3) Last Admin: 05/21/17 21:39 Dose: 650 mg Albuterol Sulfate (Albuterol 0.042% Inhal Thais (1.25mg/3ml) Ud) 1.25 mg IH [id number] PRN PRN Reason: Shortness of Breath Alprazolam (Xanax) 0.5 mg PO TID MANJULA PRN Reason: Protocol Last Admin: 05/21/17 17:29 Dose: 0.5 mg Arformoterol Tartrate (Brovana) 15 mcg IH [id number] [facility] Last Admin: 05/21/17 19:31 Dose: 15 mcg Budesonide (Pulmicort Respules) 0.25 mg IH [id number] [facility] Last Admin: 05/21/17 19:31 Dose: 0.25 mg Cyclobenzaprine HCl (Flexeril) 5 mg PO HS [facility] Last Admin: 05/21/17 21:41 Dose: 5 mg Enoxaparin Sodium (Lovenox) 30 mg SC DAILY MANJULA PRN Reason: Protocol Last Admin: 05/21/17 09:08 Dose: 30 mg Sodium Chloride (Sodium Chloride 0.45%) 1,000 mls @ 40 mls/hr IV .Q24H [facility] Last Admin: 05/22/17 06:06 Dose: 40 mls/hr Levetiracetam (Keppra) 500 mg PO BID [facility] Last Admin: 05/21/17 17:29 Dose: 500 mg Ondansetron HCl (Zofran Inj) 4 mg IVP Q4 PRN PRN Reason: Nausea/Vomiting Last Admin: 05/21/17 20:09 Dose: 4 mg Pantoprazole Sodium (Protonix Inj) 40 mg IVP DAILY [facility] Last Admin: 05/21/17 09:08 Dose: 40 mg Paroxetine HCl (Paxil) 20 mg PO DAILY [facility] Last Admin: 05/21/17 09:08 Dose: 20 mg Pregabalin (Lyrica) 75 mg PO HS [facility] Last Admin: 05/21/17 21:40 Dose: 75 mg Tramadol HCl (Ultram) 50 mg PO TID PRN PRN Reason: Pain, moderate (4-7) Last Admin: 05/21/17 17:57 Dose: 50 mg Zolpidem Tartrate (Ambien) 5 mg PO HS PRN; Protocol PRN Reason: Insomnia Last Admin: 05/21/17 21:40 Dose: 5 mg - Labs Labs: 05/22/17 06:30 05/22/17 06:30 PT 11.2 SECONDS (9.4-12.5) 05/20/17 16:45 INR 1.03 (0.93-1.08) 05/20/17 16:45 APTT 28.6 Seconds (25.1-36.5) 05/20/17 16:45 - Constitutional Appears: Non-toxic, No Acute Distress - Head Exam Head Exam: NORMAL INSPECTION - Eye Exam Eye Exam: EOMI, Normal appearance - ENT Exam ENT Exam: Mucous Membranes Moist - Respiratory Exam Respiratory Exam: Clear to Ausculation Bilateral - Cardiovascular Exam Cardiovascular Exam: +S1, +S2 - GI/Abdominal Exam GI & Abdominal Exam: Soft, Tenderness, Normal Bowel Sounds Additional comments: LUQ tenderness to palpation, no rebound/guarding - Extremities Exam Extremities Exam: Normal Inspection - Skin Skin Exam: Dry, Intact, Normal Color, Warm Assessment and Plan - Assessment and Plan (Free Text) Assessment: DM / HTN Seizure disorder COPD History of hiatal hernia s/p fundoplication Abdominal pain, vomiting Plan: - Liquid diet as tolerated - Obtain abdominal XR obstructive series - Anti-emetic therapy PRN - Pain control, avoid narcotic pain medication - Follow up neurology recommendations regarding syncope workup - If vomiting persists despite conservative management, may require EGD tomorrow. Will continue to monitor patient clinical course.
--- NOTE | 2017-05-22 08:46 | CARD ---
APPROVED REPORT EKG Measurement Heart [id number] [id number] [id number] <Conclusion> Normal sinus rhythm Prolonged QTc Electrical artifact present No change
[2017-05-22] MEDS: Morphine 2 mg/ml ISec IVP PRN ×4 (10:13→23:39)
[2017-05-22] MEDS: Enoxaparin 30 mg Syringe SC SCH (10:14)
--- NOTE | 2017-05-22 12:29 | RAD ---
HISTORY: vomiting, perform obstructive series COMPARISON: 09/30/2016 FINDINGS: BOWEL: Normal. No obstruction. No free air. BONES: Normal. OTHER FINDINGS: None. IMPRESSION: No active disease.
--- NOTE | 2017-05-22 13:54 | US ---
PROCEDURE: Bilateral carotid artery duplex ultrasound HISTORY: Carotid stenosis PHYSICIAN(S): Russel Oneil MD. TECHNIQUE: Duplex sonography and color-flow Doppler were used to evaluate the carotid bifurcations and limited segments of the vertebral arteries bilaterally. FINDINGS: There is mild to moderate smooth heterogeneous plaque noted at the carotid bifurcations bilaterally. The peak systolic velocity in the proximal right internal carotid artery is 101 cm/sec. This corresponds to a 20 to 39% proximal right ICA stenosis. Normal systolic velocities are noted in the proximal right external carotid artery. There is antegrade flow in the right vertebral artery. The peak systolic velocity in the proximal left internal carotid artery is 146 cm/sec. This corresponds to a 40-59 percent proximal left ICA stenosis. Normal systolic velocities are noted in the proximal left external carotid artery. There is antegrade flow in the left vertebral artery. IMPRESSION: 1. 40-59 percent stenosis in the proximal left ICA. 2. 20-39 percent proximal right ICA stenosis 3. Antegrade flow in both vertebral arteries.
--- NOTE | 2017-05-22 14:04 | PN ---
DATE: SUBJECTIVE: I saw Betty Zurita this morning. She is very uncomfortable. She is still throwing up and cannot keep anything down and in a lot of pain. I did start the pain medication hoping that they are going to discharge her today, but the plan now from GI is to do a obstructive series and also an endoscopy tomorrow, looking for worsening hiatal hernia. She is extremely uncomfortable right now with nausea, vomiting, and I see her in the throw up bucket. PHYSICAL EXAMINATION VITAL SIGNS: She has a 98.2 temperature, 82 pulse, 106/51 blood pressure, 20 respiratory rate, and 96% O2 saturation on room air. HEENT: Head is atraumatic and normocephalic. Throat is moist. NECK: Supple. HEART: Regular rate. LUNGS: Decreased breath sounds, but clear. ABDOMEN: Mildly distended. Decreased bowel sounds. Discomfort allover. No guarding. No rebound. EXTREMITIES: No edema. MEDICATIONS: She is on albuterol, Ambien, Brovana, Flexeril, Keppra, Lovenox, Lyrica, Paxil, Protonix, Pulmicort, IV fluids, Tylenol, Ultram, Xanax and Zofran, I will order the morphine back for her. LABORATORY DATA: She has a 4.5 white count, 10.7 hemoglobin and 32.8 hematocrit with 236 platelets. She has a 140 sodium, potassium is 3.8, BUN is 12, and creatinine is 0.6. GFR is greater than 60. Sugar is 97, calcium is 9.4, and total bilirubin is 0.8. AST is 34, ALT is 27, alkaline phosphatase is 97, and total protein is 7.4. ASSESSMENT AND PLAN: She is being seen by Gastroenterology. The plan is for a x-ray, obstructive series, antiemetics, and endoscopy tomorrow. I will have to make her an inpatient. Asher Rodrigez DO
--- NOTE | 2017-05-22 20:43 | CON ---
DATE: HISTORY OF PRESENT ILLNESS: This is a 57-year-old female with a past medical history of COPD, hypertension, diabetes, seizure, and multiple medical problems, angina, arrhythmia, UTI, anxiety, and depression, came to hospital with the complaint of fainting and also complaint of headache and throwing up, so she called 911 and brought to the hospital. PAST MEDICAL HISTORY: As above. ALLERGIES: ALLERGIC TO DIPHENHYDRAMINE, IBUPROFEN, AND TOMATOES. MEDICATIONS: Lyrica, Ambien, and Ventolin inhaler. REVIEW OF SYSTEMS: Ten-point review of system was negative except some nausea and retching. PHYSICAL EXAMINATION: HEENT: Normocephalic and atraumatic. NECK: Supple. NEUROLOGIC: Awake, alert, and oriented to self and place. Cranial nerves II through XII were tested. Pupils reactive. EOM intact. Visual kapadia full. No facial asymmetry. Tongue midline. Motor examination; spontaneous movement of the extremities noted. Tone normal. Deep tendon reflexes 1+. Both plantars are downgoing. Sensory appears intact. Cerebellar and gait deferred. IMPRESSION AND PLAN: Syncope, rule out seizure though less likely and workup in progress. We will follow up. Jamal Goetz MD
[2017-05-23] MEDS: Morphine 2 mg/ml ISec IVP PRN ×2 (04:14→08:45)
[2017-05-23 06:29] LABS: HEMATOCRIT 31.6 % (36.0-48.0); MEAN CELL VOLUME 102.3 fl (80.0-105.0); MEAN CORPUSCULAR HGB CONC 32.3 g/dl (31.0-37.0); MEAN PLATELET VOLUME 9.6 fl (7.0-11.0); RED CELL DISTRIBUTION WIDTH 14.1 % (11.5-14.5); WHITE BLOOD COUNT 4.9 10^3/ul (4.5-11.0)
[2017-05-23 06:48] LABS: ALB/GLOB RATIO 1.4 (1.1-1.8); ALKALINE PHOSPHATASE 89 U/L (38-126); ALT/SGPT 36 U/L (7-56); AST/SGOT 30 U/L (14-36); BILIRUBIN,TOTAL 0.7 mg/dL (0.2-1.3); BLOOD UREA NITROGEN 9 mg/dL (7-21); CALCIUM 9.2 mg/dL (8.4-10.5); CARBON DIOXIDE 27 mmol/L (21-33); CHLORIDE 105 mmol/L (98-107); GFR AFRICAN-AMERICAN > 60; GLUCOSE,RANDOM 98 mg/dL (70-110); POTASSIUM 3.6 mmol/L (3.6-5.0); SODIUM 139 mmol/L (132-148)
[2017-05-23] MEDS: Arformoterol 15 mcg/2 ml Inh Sol IH SCH (07:28)
[2017-05-23] MEDS: Budesonide 0.25 mg/2 ml Inhal Susp UD IH SCH (07:28)
[2017-05-23] MEDS: Enoxaparin 30 mg Syringe SC SCH (09:28)
[2017-05-23] MEDS ORDERED: Propofol 10 mg/ml Inj (20 ML) ONE (10:08)
--- NOTE | 2017-05-23 10:32 | CP.PCM.PN ---
Subjective - Date & Time of Evaluation Date of Evaluation: 05/23/17 Time of Evaluation: 10:29 - Subjective Subjective: PGY-2 Neurology progress note for Dr. Goetz's service Patient seen and examined at bedside. No acute distress. Patient states that she does at times feel dizzy but does not report any episodes of lightheadedness or syncope. Objective - Vital Signs/Intake and Output Vital Signs (last 24 hours): Temp Pulse Resp BP Pulse Ox 98.3 F 86 23 128/58 L 96 05/23/17 10:05 05/23/17 10:05 05/23/17 10:05 05/23/17 10:05 05/23/17 10:05 Intake and Output: 05/23/17 05/23/17 06:59 18:59 Intake Total 1510 Balance 1510 - Medications Medications: Current Medications Acetaminophen (Tylenol 325mg Tab) 650 mg PO Q4H PRN PRN Reason: Pain, Mild (1-3) Last Admin: 05/21/17 21:39 Dose: 650 mg Albuterol Sulfate (Albuterol 0.042% Inhal Thais (1.25mg/3ml) Ud) 1.25 mg IH [id number] PRN PRN Reason: Shortness of Breath Alprazolam (Xanax) 0.5 mg PO TID MANJULA PRN Reason: Protocol Last Admin: 05/22/17 17:50 Dose: 0.5 mg Arformoterol Tartrate (Brovana) 15 mcg IH [id number] [facility] Last Admin: 05/23/17 07:28 Dose: 15 mcg Budesonide (Pulmicort Respules) 0.25 mg IH [id number] MANJULA Last Admin: 05/23/17 07:28 Dose: 0.25 mg Cyclobenzaprine HCl (Flexeril) 5 mg PO HS [facility] Last Admin: 05/22/17 21:59 Dose: 5 mg Enoxaparin Sodium (Lovenox) 30 mg SC DAILY MANJULA PRN Reason: Protocol Last Admin: 05/23/17 09:28 Dose: Not Given Sodium Chloride (Sodium Chloride 0.45%) 1,000 mls @ 40 mls/hr IV .Q24H MANJULA Last Admin: 05/22/17 06:06 Dose: 40 mls/hr Levetiracetam (Keppra) 500 mg PO BID [facility] Last Admin: 05/22/17 17:50 Dose: 500 mg Morphine Sulfate (Morphine) 1 mg IVP Q4H PRN PRN Reason: Pain, moderate (4-7) Last Admin: 05/23/17 08:45 Dose: 1 mg Ondansetron HCl (Zofran Inj) 4 mg IVP Q4 PRN PRN Reason: Nausea/Vomiting Last Admin: 05/22/17 08:00 Dose: 4 mg Pantoprazole Sodium (Protonix Inj) 40 mg IVP DAILY [facility] Last Admin: 05/22/17 10:14 Dose: 40 mg Paroxetine HCl (Paxil) 20 mg PO DAILY [facility] Last Admin: 05/22/17 10:14 Dose: 20 mg Pregabalin (Lyrica) 75 mg PO HS [facility] Last Admin: 05/22/17 21:59 Dose: 75 mg Tramadol HCl (Ultram) 50 mg PO TID PRN PRN Reason: Pain, moderate (4-7) Last Admin: 05/21/17 17:57 Dose: 50 mg Zolpidem Tartrate (Ambien) 5 mg PO HS PRN; Protocol PRN Reason: Insomnia Last Admin: 05/22/17 22:00 Dose: 5 mg - Labs Labs: 05/23/17 05:00 05/23/17 05:30 PT 11.2 SECONDS (9.4-12.5) 05/20/17 16:45 INR 1.03 (0.93-1.08) 05/20/17 16:45 APTT 28.6 Seconds (25.1-36.5) 05/20/17 16:45 - Constitutional Appears: Well, No Acute Distress - Head Exam Head Exam: ATRAUMATIC, NORMAL INSPECTION, NORMOCEPHALIC - Eye Exam Eye Exam: EOMI, Normal appearance - ENT Exam ENT Exam: Mucous Membranes Moist - Respiratory Exam Respiratory Exam: Clear to Ausculation Bilateral, NORMAL BREATHING PATTERN. absent: Rhonchi, Wheezes - Cardiovascular Exam Cardiovascular Exam: REGULAR RHYTHM. absent: Tachycardia, Murmur - GI/Abdominal Exam GI & Abdominal Exam: Soft, Normal Bowel Sounds. absent: Tenderness - Extremities Exam Extremities Exam: Normal Inspection. absent: Pedal Edema - Neurological Exam Neurological Exam: Alert, Awake, CN II-XII Intact, Oriented x3 Neuro motor strength exam: Left Upper Extremity: 5, Right Upper Extremity: 5, Left Lower Extremity: 4 (h/o of back surgery), Right Lower Extremity: 5 - Skin Skin Exam: Dry, Intact, Normal Color, Warm
[2017-05-23 10:36] VITALS: O2SAT 99
[2017-05-23] MEDS ORDERED: Sodium Chloride 0.9% 1,000 ML IV SCH (10:45)
[2017-05-23 10:51] VITALS: RESP 16; TEMP 98.5
[2017-05-23 10:57] VITALS: PULSE 77
[2017-05-23 11:07] VITALS: BP 92/49
[2017-05-23] MEDS ORDERED: Cholestyramine 4 gm/Pkt UD PO SCH (12:30)
--- NOTE | 2017-05-23 13:47 | PN ---
DATE: SUBJECTIVE: I saw Betty resting comfortably in her bed this morning. She is alert. She is still having nausea, vomiting and abdominal pain. She is going down for endoscopy today, hopefully we will find what is going on with her hiatal hernia, which I think is probably the cause of her problem. She is miserable still has a throw up bucket next to her. MEDICATIONS: She is on albuterol, Ambien, Brovana, Flexeril, Keppra, Lovenox, Lyrica, morphine, Paxil, Protonix, Pulmicort, IV fluids, Tylenol, Ultram, Xanax and Zofran. PHYSICAL EXAMINATION VITAL SIGNS: Temperature is 98.3, pulse is 86, blood pressure is 117/60, respiratory rate is 18, and O2 saturation is 96% on room air. HEENT: Head is atraumatic and normocephalic. Throat is moist. NECK: Supple. HEART: Regular rate. ABDOMEN: Distended. Decreased bowel sounds were present. She tells me she has been burping and throwing up and no gas or bowel movements. EXTREMITIES: No edema. LABORATORY DATA: She has white count of 4.9, hemoglobin of 10.2, hematocrit of 31.6, and platelets of 222. Sodium is 139, potassium is 3.6, BUN is 9, and creatinine is 0.5. GFR is greater than 60, sugar 98, calcium is 9.2, and total bilirubin is 0.78. AST is 30, ALT is 36, and alkaline phosphatase is 89. Troponin is less than 0.01. Total protein is 7. ASSESSMENT AND PLAN: Intractable nausea and vomiting, abdominal pain, gastroparesis, and syncope. She is being seen by Neurology and Gastroenterology. She is going for endoscopy today. No active disease in the chest. Neurology is working on for the syncopal episode that she had as she is going for endoscopy. Once she stops nausea and vomiting, I will try increase her diet as per Gastroenterology and discharge her when she can. We will see what the endoscopy tells us. Asher Rodrigez DO [facility] # [id number]
[2017-05-24] MEDS ORDERED: Pantoprazole 40 mg EC Tab PO SCH (10:00)
== END 2017-05-23 14:26 | disposition home or self-care (01) | DRG 18 ==
LOC: ED 15:56 → ERH 21:07 → 3RNO 05-21 00:26 → OBSVTOIN 05-22 09:56 → 3RNO 05-22 17:46
PROVIDERS: ADMIT Family Medicine; ATTEND Family Medicine
PROC: 0DB98ZX Excision of Duodenum, Via Natural or Artificial Opening Endoscopic, Diagnostic (ICD-10-PCS; 2017-05-23)
PROC: 0DB68ZX Excision of Stomach, Via Natural or Artificial Opening Endoscopic, Diagnostic (ICD-10-PCS; principal; 2017-05-23 10:00)
DX: E11.43 Type 2 diabetes mellitus with diabetic autonomic (poly)neuropathy (principal); K31.84 Gastroparesis; J44.9 Chronic obstructive pulmonary disease, unspecified; I10 Essential (primary) hypertension; K29.70 Gastritis, unspecified, without bleeding; K44.9 Diaphragmatic hernia without obstruction or gangrene; G40.909 Epilepsy, unspecified, not intractable, without status epilepticus; K80.20 Calculus of gallbladder without cholecystitis without obstruction; K21.9 Gastro-esophageal reflux disease without esophagitis; F32.9 Major depressive disorder, single episode, unspecified; F41.0 Panic disorder [episodic paroxysmal anxiety]; R55 Syncope and collapse; Z87.891 Personal history of nicotine dependence; Z87.442 Personal history of urinary calculi

== ENCOUNTER 2017-07-20 11:31 | Emergency (ER) | payer MEDICAID ==
[2017-07-20 11:31] VITALS: BMI 30.7
[2017-07-20 11:58] LABS: EOS # 0.1 (0.0-0.7); EOS % 0.9 % (1.5-5.0); GRAN # 3.47 (1.4-6.5); GRAN % 63.4 % (50.0-68.0); HEMOGLOBIN 11.9 g/dL (12.0-16.0); LYMPH # 1.5 (1.2-3.4); LYMPH % 28.2 % (22.0-35.0); MEAN CELL VOLUME 99.2 fl (80.0-105.0); MEAN CORPUSCULAR HEMOGLOBIN 33.6 pg (25.0-35.0); MEAN CORPUSCULAR HGB CONC 33.9 g/dl (31.0-37.0); MEAN PLATELET VOLUME 9.8 fl (7.0-11.0); MONO # 0.4 (0.1-0.6); MONO % 7.5 % (1.0-6.0); RBC 3.54 10^6/uL (3.5-6.1); RED CELL DISTRIBUTION WIDTH 13.8 % (11.5-14.5); WHITE BLOOD COUNT 5.5 10^3/ul (4.5-11.0)
[2017-07-20] MEDS ORDERED: Morphine 2 mg/ml ISec IVP STA ×2 (12:04→14:31)
--- NOTE | 2017-07-20 12:09 | ED PDOC ---
Arrival/HPI - General Chief Complaint: Shortness Of Breath Time Seen by Provider: 07/20/17 11:54 Historian: Patient - History of Present Illness Narrative History of Present Illness (Text): 57yo female with history of anxiety, COPD, chronic pain, is brought to ER for evaluation of shortness of breath. Patient was having an outpatient PFT exam and felt increasingly short of breath and states she "almost passed out." She denies any associated chest pain or leg swelling. She has no other complaints. Time/Duration: Prior to Arrival Symptom Onset: Sudden Past Medical History - Provider Review Nursing Documentation Reviewed: Yes - Infectious Disease Hx of Infectious Diseases: None - Tetanus Immunization Tetanus Immunization: Unknown - Past Medical History Past Medical History: No Previous - Cardiac Hx Cardiac Disorders: Yes Hx Angina: Yes Hx Cardiac Arrhythmia: Yes Hx Hypertension: Yes - Pulmonary Hx Respiratory Disorders: Yes Hx Chronic Obstructive Pulmonary Disease (COPD): Yes - Neurological Hx Neurological Disorder: Yes Hx Seizures: Yes - HEENT Hx HEENT Disorder: Yes - Renal Hx Kidney Stones: Yes - Endocrine/Metabolic Hx Diabetes Mellitus Type 2: Yes (denies) - Hematological/Oncological Hx Blood Transfusions: No Hx Blood Transfusion Reaction: No - Integumentary Hx Dermatological Disorder: No - Musculoskeletal/Rheumatological Hx Falls: Yes - Gastrointestinal Hx Gastrointestinal Disorders: Yes (HIATAL HERNIA) Hx Gastroesophageal Reflux: Yes - Genitourinary/Gynecological Hx Urinary Tract Infection: Yes - Psychiatric Hx Psychophysiologic Disorder: Yes Hx Anxiety: Yes Hx Depression: Yes Hx Panic Disorder: Yes Hx Substance Use: Yes - Surgical History Hx Appendectomy: Yes Hx Cardiac Catheterization: Yes Hx Coronary Stent: Yes Hx Hysterectomy: Yes Hx Orthopedic Surgery: Yes (BACK SX X7 WITH PLATES AND SCREWS) - Anesthesia Hx Anesthesia: Yes Hx Anesthesia Reactions: No Hx Malignant Hyperthermia: No - Suicidal Assessment Feels Threatened In Home Enviroment: No Family/Social History - Physician Review Nursing Documentation Reviewed: Yes Family/Social History: No Known Family HX Smoking Status: Former Smoker Hx Alcohol Use: No Hx Substance Use: Yes Hx Substance Use Treatment: No Allergies/Home Meds Allergies/Adverse Reactions: Allergies diphenhydramine Allergy (Verified 12/14/16 15:44) ANGIOEDEMA ibuprofen Allergy (Verified 12/14/16 15:44) ANGIOEDEMA tomato Allergy (Verified 12/14/16 15:44) RASH Home Medications: Home Meds Medication Instructions Recorded Confirmed Fluticasone/Salmeterol 100/50 1 puff IH BID 10/01/16 07/20/17 [Advair Diskus 100/50] Albuterol HFA [Ventolin HFA 90 1 puff INH Q4 PRN 05/20/17 07/20/17 mcg/actuation (8 g)] Pregabalin [Lyrica] 75 mg PO HS 05/20/17 07/20/17 Alprazolam [Xanax] 1 mg PO TID 07/20/17 07/20/17 Review of Systems - Physician Review All systems were reviewed & negative as marked: Yes - Review of Systems Cardiovascular: absent: Chest Pain Musculoskeletal: absent: Other (leg swelling) Physical Exam - Physical Exam Narrative Physical Exam (Text): Constitutional: Anxious appearing. Head: Normocephalic. Atraumatic. Eyes: PERRL. ENT: Moist mucous membranes. Neck: Supple. Cardiovascular: Regular rate. Chest: No tenderness. Respiratory: Clear to auscultation bilaterally. Tachypneic. GI: Soft. Nontender. Nondistended. Back: No CVA tenderness. Musculoskeletal: No tenderness or swelling of extremities. Skin: No rash. Neurologic: Alert, no focal deficit. Vital Signs Reviewed: Yes Vital Signs Temp Pulse Resp BP Pulse Ox 07/20/17 14:16 97.8 F 98 H 18 117/57 L 100 07/20/17 12:22 100 H 24 142/90 96 07/20/17 11:48 24 07/20/17 11:41 98.2 F 102 H 19 151/93 H 100 Temperature: Afebrile Blood Pressure: Normal Pulse: Regular Respiratory Rate: Tachypneic Appearance: Positive for: Well-Appearing, Non-Toxic, Other (anxious appearing) Mental Status: Positive for: Alert and Oriented X 3 Medical Decision Making ED Course and Treatment: Impression: Panic attack Plan: -- EKG -- Labs -- Ativan 1mg IVP -- Morphine 2mg IVP 07/20/17 12:08 EKG: Normal sinus rhythm Rate: [address]/T wave changes 07/20/17 14:34 Patient with no desats in ED. Labs unremarkable. Dr. Johnson who has seen patient in hospital multiple times states patient has had panic attacks like this multiple times in the past which have triggered technology analyst like today. Dr. Rodrigez states she can see him in office tomorrow. - Lab Interpretations Lab Results: 07/20/17 11:45 07/20/17 12:10 Lab Results 07/20/17 12:10: Sodium 139, Potassium 3.8, Chloride 104, Carbon Dioxide 20 L, Anion Gap 19, BUN 10, Creatinine 0.6 L, Est GFR ( Amer) > 60, Est GFR ( Non-Af Amer) > 60, Random Glucose 120 H, Calcium 10.1, Total Bilirubin 0.5, AST 20, ALT 27, Alkaline Phosphatase 95, Total Protein 8.1, Albumin 4.7, Globulin 3.4, Albumin/Globulin Ratio 1.4 07/20/17 11:45: PT 11.4, INR 0.99, APTT 26.2 07/20/17 11:45: WBC 5.5, RBC 3.54, Hgb 11.9 L, Hct 35.1 L, MCV 99.2 D, MCH 33.6 , MCHC 33.9, RDW 13.8, Plt Count 219, MPV 9.8, Gran % 63.4, Lymph % (Auto) 28.2 , Spencer % (Auto) 7.5 H, Eos % (Auto) 0.9 L, Baso % (Auto) 0.0, Gran # 3.47, Lymph # 1.5, Spencer # 0.4, Eos # 0.1, Baso # 0.00 - RAD Interpretation Radiology Orders: 07/20/17 11:47 CHEST PORTABLE [RAD] Stat - Medication Orders Current Medication Orders: Morphine Sulfate (Morphine) 2 mg IVP STAT STA Stop: 07/20/17 14:32 Discontinued Medications Lorazepam (Ativan) 1 mg IVP ONCE ONE PRN Reason: Protocol Stop: 07/20/17 12:05 Last Admin: 07/20/17 12:21 Dose: 1 mg IVP Administration Document 07/20/17 12:21 SRE (Rec: 07/20/17 12:21 SRE [id number]) Charges for Administration # of IVP Administrations 1 Morphine Sulfate (Morphine) 2 mg IVP STAT STA Stop: 07/20/17 12:05 Last Admin: 07/20/17 12:21 Dose: 2 mg MAR Pain Assessment Document 07/20/17 12:21 SRE (Rec: 07/20/17 12:21 SRE [id number]) Pain Reassessment Is this a pain reassessment? Yes Sleep Is patient sleeping during reassessment? No Presence of Pain Presence of Pain Yes Pain Scale Used Pain Scale Used Numeric Location Left, Right or Bilateral Left Pain Location Body Site Breast Description Description Intermittent IVP Administration Document 07/20/17 12:21 SRE (Rec: 07/20/17 12:21 SRE [id number]) Charges for Administration # of IVP Administrations 1 - Scribe Statement The provider has reviewed the documentation as recorded by the Cubaibe Rosa Chandra Provider Scribe Attestation: All medical record entries made by the Scribe were at my direction and personally dictated by me. I have reviewed the chart and agree that the record accurately reflects my personal performance of the history, physical exam, medical decision making, and the department course for this patient. I have also personally directed, reviewed, and agree with the discharge instructions and disposition. Disposition/Present on Arrival - Present on Arrival Any Indicators Present on Arrival: No History of DVT/PE: No History of Uncontrolled Diabetes: No Urinary Catheter: No History of Decub. Ulcer: No History Surgical Site Infection Following: None - Disposition Have Diagnosis and Disposition been Completed?: Yes Diagnosis: Panic attack Disposition: HOME/ ROUTINE Disposition Time: 14:24 Patient Plan: Discharge Condition: STABLE Discharge Instructions (ExitCare): Panic Attack (ED) Additional Instructions: You can see Dr. Rodrigez in his office tomorrow. Referrals: Asher Rodrigez DO [Primary Care Provider] - Follow up with primary Forms: Engana Pty (Romanian)
[2017-07-20 12:39] LABS: INR 0.99 (0.93-1.08); PARTIAL THROMBOPLASTIN TIME 26.2 Seconds (25.1-36.5); PROTHROMBIN TIME 11.4 SECONDS (9.4-12.5)
[2017-07-20 14:16] LABS: ALB/GLOB RATIO 1.4 (1.1-1.8); ALBUMIN 4.7 g/dL (3.0-4.8); ALT/SGPT 27 U/L (7-56); AST/SGOT 20 U/L (14-36); BLOOD UREA NITROGEN 10 mg/dL (7-21); CALCIUM 10.1 mg/dL (8.4-10.5); GFR AFRICAN-AMERICAN > 60; GFR NON-AFRICAN AMERICAN > 60
[2017-07-20 14:19] VITALS: BP 117/57; PULSE 98; RESP 18; TEMP 97.8; O2SAT 100
--- NOTE | 2017-07-20 14:57 | RAD ---
HISTORY: sob COMPARISON: Chest x-ray performed 05/20/17 TECHNIQUE: Chest, one view. FINDINGS: Examination limited by habitus, hypoinflation, and patient obliquity. LUNGS: No focal consolidation. Please note that chest x-ray has limited sensitivity for the detection of pulmonary masses. PLEURA: No significant pleural effusion identified. No definite pneumothorax . CARDIOVASCULAR: Borderline cardiomegaly. OSSEOUS STRUCTURES: No acute osseous abnormality identified. VISUALIZED UPPER ABDOMEN: Unremarkable. OTHER FINDINGS: None. IMPRESSION: No acute findings identified. See above.
--- NOTE | 2017-07-20 15:45 | CARD ---
APPROVED REPORT EKG Measurement Heart [id number] <Conclusion> Sinus tachycardia Nonspecific ST and T wave abnormality Abnormal ECG
== END 2017-07-20 15:01 | disposition home or self-care (01) ==
LOC: ED 11:31
DX: F41.0 Panic disorder [episodic paroxysmal anxiety] (principal); I10 Essential (primary) hypertension; J44.9 Chronic obstructive pulmonary disease, unspecified; Z87.891 Personal history of nicotine dependence
CPT/HCPCS: 71045; 80053; 85025; 85610; 85730; 93005; 96374; 96375; 96376; 99285; J2060; J2270

== ENCOUNTER 2017-12-29 13:19 | Emergency (ER) | payer MEDICAID ==
[2017-12-29 13:47] VITALS: BMI 30.2
--- NOTE | 2017-12-29 14:31 | ED PDOC ---
Arrival/HPI - General Time Seen by Provider: 12/29/17 14:17 - History of Present Illness Narrative History of Present Illness (Text): 57 y/o F c PMHx COPD, anxiety, chronic pain p/w chest pain x 6 days. Chest pain is midsternal, radiating to L arm with numbness, associated with L sided jaw stiffness and shortness of breath. She also reports her chronic pain from a hernia on the LUQ wall. Denies fever, cough, vomiting, leg swelling. States saw Dr. Rodrigez in his office today and was instructed to come to the ED. PMD Rain Past Medical History - Infectious Disease Hx of Infectious Diseases: None - Tetanus Immunization Tetanus Immunization: Unknown - Past Medical History Past Medical History: No Previous - Cardiac Hx Cardiac Disorders: Yes Hx Angina: Yes Hx Cardiac Arrhythmia: Yes Hx Hypertension: Yes - Pulmonary Hx Respiratory Disorders: Yes Hx Chronic Obstructive Pulmonary Disease (COPD): Yes - Neurological Hx Neurological Disorder: Yes Hx Seizures: Yes - HEENT Hx HEENT Disorder: Yes - Renal Hx Kidney Stones: Yes - Endocrine/Metabolic Hx Diabetes Mellitus Type 2: Yes (denies) - Hematological/Oncological Hx Blood Transfusions: No Hx Blood Transfusion Reaction: No - Integumentary Hx Dermatological Disorder: No - Musculoskeletal/Rheumatological Hx Falls: Yes - Gastrointestinal Hx Gastrointestinal Disorders: Yes (HIATAL HERNIA) Hx Gastroesophageal Reflux: Yes - Genitourinary/Gynecological Hx Urinary Tract Infection: Yes - Psychiatric Hx Psychophysiologic Disorder: Yes Hx Anxiety: Yes Hx Depression: Yes Hx Panic Disorder: Yes Hx Substance Use: Yes - Surgical History Hx Appendectomy: Yes Hx Cardiac Catheterization: Yes Hx Coronary Stent: Yes Hx Hysterectomy: Yes Hx Orthopedic Surgery: Yes (BACK SX X7 WITH PLATES AND SCREWS) - Anesthesia Hx Anesthesia: Yes Hx Anesthesia Reactions: No Hx Malignant Hyperthermia: No - Suicidal Assessment Feels Threatened In Home Enviroment: No Family/Social History Family/Social History: No Known Family HX Smoking Status: Former Smoker Hx Alcohol Use: No Hx Substance Use: Yes Hx Substance Use Treatment: No Allergies/Home Meds Allergies/Adverse Reactions: Allergies diphenhydramine Allergy (Verified 12/29/17 13:46) ANGIOEDEMA ibuprofen Allergy (Verified 12/29/17 13:46) ANGIOEDEMA tomato Allergy (Verified 12/29/17 13:46) RASH Home Medications: Home Meds Medication Instructions Recorded Confirmed Fluticasone/Salmeterol 100/50 1 puff IH BID 10/01/16 07/20/17 [Advair Diskus 100/50] Albuterol HFA [Ventolin HFA 90 1 puff INH Q4 PRN 05/20/17 07/20/17 mcg/actuation (8 g)] Pregabalin [Lyrica] 75 mg PO HS 05/20/17 07/20/17 Alprazolam [Xanax] 1 mg PO TID 07/20/17 07/20/17 Review of Systems - Physician Review All systems were reviewed & negative as marked: Yes - Review of Systems Constitutional: absent: Fevers Gastrointestinal: absent: Vomiting Physical Exam - Physical Exam Narrative Physical Exam (Text): Gen: Appears anxious Head: NC Eyes: PERRL ENT: MMM Neck: Supple Chest: No tenderness CV: Regular rate Lungs: CTA b/l Abd: Soft, no ecchymosis or firm mass Back: No CVA tenderness Skin: No rash Neuro: Alert, no focal deficit Extremities: No edema Medical Decision Making ED Course and Treatment: EKG Sinus rhythm, 96 bpm, no ST elevations. 12/29/17 14:55 CXR reviewed, shows: LUNGS: The lungs are well inflated. There is mild pulmonary venous congestion. PLEURA: No significant pleural effusion identified, no pneumothorax apparent. CARDIOVASCULAR: There is mild cardiomegaly. OSSEOUS STRUCTURES: No significant abnormalities. VISUALIZED UPPER ABDOMEN: Normal. OTHER FINDINGS: None. IMPRESSION: Mild cardiomegaly and pulmonary venous congestion. No active pulmonary disease. Enzymes negative, proBNP negative, pCO2 not elevated. Dr. Rodrigez states can see patient in office tomorrow, which patient is agreeable to. Will discharge, instructed to return for worsening pain, fever, vomiting, dyspnea, or any other problem. - Lab Interpretations Lab Results: 12/29/17 13:30 12/29/17 13:30 Lab Results 12/29/17 15:22: pCO2 24 L, pO2 127.0 H, HCO3 19.6 L, ABG pH 7.52 H, ABG Total CO2 20.3 L, ABG O2 Saturation 97.9, ABG O2 Content 17.2, ABG Base Excess -1.8, ABG Hemoglobin 12.4, ABG Carboxyhemoglobin 0.3 L, POC ABG HHb (Measured) 2.1, ABG Methemoglobin 0.5, ABG O2 Capacity 17.6, Hgb O2 Saturation 97.2, FiO2 36.0 12/29/17 13:30: Sodium 143, Potassium 4.2, Chloride 105, Carbon Dioxide 19 L, Anion Gap 23 H, BUN 10, Creatinine 0.5 L, Est GFR ( Amer) > 60, Est GFR ( Non-Af Amer) > 60, Random Glucose 98, Calcium 10.3, Total Bilirubin 0.4, AST 23 , ALT 24, Alkaline Phosphatase 110, Total Creatine Kinase 102, Troponin I < 0.01 , NT-Pro-B Natriuret Pep 143, Total Protein 8.8 H, Albumin 5.0 H, Globulin 3.8, Albumin/Globulin Ratio 1.3, Lipase 104 12/29/17 13:30: PT 11.1, INR 0.97, APTT 28.3 12/29/17 13:30: WBC 6.0, RBC 3.88, Hgb 12.8, Hct 37.7, MCV 97.2, MCH 33.0, MCHC 34.0, RDW 13.7, Plt Count 314, MPV 10.0, Gran % 50.0, Lymph % (Auto) 42.3 H, [place] % (Auto) 5.7, Eos % (Auto) 1.8, Baso % (Auto) 0.2, Gran # 3.01, Lymph # ( Auto) 2.5, [place] # (Auto) 0.3, Eos # (Auto) 0.1, Baso # (Auto) 0.01 - RAD Interpretation Radiology Orders: 12/29/17 14:28 CHEST PORTABLE [RAD] Stat - Medication Orders Current Medication Orders: Discontinued Medications Ketorolac Tromethamine (Toradol) 30 mg IVP STAT STA Stop: 12/29/17 14:29 Last Admin: 12/29/17 15:44 Dose: 30 mg MAR Pain Assessment Document 12/29/17 15:44 [email or web address] (Rec: 12/29/17 15:44 [email or web address] [id number]) Pain Reassessment Is this a pain reassessment? No Sleep Is patient sleeping during reassessment? No Presence of Pain Presence of Pain Yes Pain Scale Used Pain Scale Used Numeric Location Pain Location Body Site Generalized Description Description Constant Intensity of Pain at present 6 Pain Behavior Facial Grimacing Aggravating Factors Changing Position Alleviating Factors/Management Medication Techniques Alleviating Factors Medication IVP Administration Document 12/29/17 15:44 [email or web address] (Rec: 12/29/17 15:44 [email or web address] [id number]) Charges for Administration # of IVP Administrations 1 Disposition/Present on Arrival - Present on Arrival Any Indicators Present on Arrival: No History of DVT/PE: No History of Uncontrolled Diabetes: No Urinary Catheter: No History Surgical Site Infection Following: None - Disposition Have Diagnosis and Disposition been Completed?: Yes Diagnosis: Dyspnea Disposition: HOME/ ROUTINE Disposition Time: 15:52 Patient Plan: Discharge Condition: STABLE Discharge Instructions (ExitCare): Shortness of Breath (Dyspnea) Referrals: Asher Rodrigez DO [Primary Care Provider] - Follow up with primary
--- NOTE | 2017-12-29 14:53 | RAD ---
HISTORY: Chest pain, dyspnea, arm numbness COMPARISON: 07/20/2017. FINDINGS: LUNGS: The lungs are well inflated. There is mild pulmonary venous congestion. PLEURA: No significant pleural effusion identified, no pneumothorax apparent. CARDIOVASCULAR: There is mild cardiomegaly. OSSEOUS STRUCTURES: No significant abnormalities. VISUALIZED UPPER ABDOMEN: Normal. OTHER FINDINGS: None. IMPRESSION: Mild cardiomegaly and pulmonary venous congestion. No active pulmonary disease.
[2017-12-29 14:56] LABS: BASO # 0.01 K/mm3 (0.0-2.0); BASO % 0.2 % (0.0-3.0); EOS # 0.1 (0.0-0.7); EOS % 1.8 % (1.5-5.0); GRAN # 3.01 (1.4-6.5); HEMOGLOBIN 12.8 g/dL (12.0-16.0); LYMPH # 2.5 (1.2-3.4); LYMPH % 42.3 % (22.0-35.0); MEAN CELL VOLUME 97.2 fl (80.0-105.0); MONO # 0.3 (0.1-0.6); MONO % 5.7 % (1.0-6.0); RBC 3.88 10^6/uL (3.5-6.1); RED CELL DISTRIBUTION WIDTH 13.7 % (11.5-14.5)
[2017-12-29 15:01] LABS: ALB/GLOB RATIO 1.3 (1.1-1.8); ALT/SGPT 24 U/L (7-56); AST/SGOT 23 U/L (14-36); BLOOD UREA NITROGEN 10 mg/dL (7-21); CALCIUM 10.3 mg/dL (8.4-10.5); GFR AFRICAN-AMERICAN > 60; GFR NON-AFRICAN AMERICAN > 60; LIPASE 104 U/L (23-300)
[2017-12-29 15:04] LABS: INR 0.97 (0.93-1.08); PARTIAL THROMBOPLASTIN TIME 28.3 Seconds (25.1-36.5); PROTHROMBIN TIME 11.1 SECONDS (9.4-12.5)
[2017-12-29 15:13] LABS: B-TYPE NATRIURETIC PEPTIDE 143 pg/mL (0-450); TROPONIN I < 0.01 ng/mL
[2017-12-29 15:25] LABS: ARTERIAL BLOOD GAS HCO3 19.6 mmol/L (21-28); ARTERIAL BLOOD GAS HEMOGLOBIN 12.4 g/dL (11.7-17.4); ARTERIAL BLOOD GAS O2 CAPACITY 17.6 mL/dl (16-24); ARTERIAL BLOOD GAS O2 CONTENT 17.2 ML/dl (15-23); ARTERIAL BLOOD GAS O2 SAT 97.9 % (95-98); ARTERIAL BLOOD GAS PCO2 24 mm/Hg (35-45); ARTERIAL BLOOD GAS PH 7.52 (7.35-7.45); ARTERIAL BLOOD GAS TCO2 20.3 mmol.L (22-28)
[2017-12-29 15:59] VITALS: BP 110/71; PULSE 83; RESP 22; TEMP 98.3; O2SAT 97
--- NOTE | 2017-12-30 08:51 | CARD ---
APPROVED REPORT EKG Measurement Heart [id number] 108P12 [id number] <Conclusion> Sinus rhythm with short NE Nonspecific ST abnormality Mildly prolonged QTc
== END 2017-12-29 15:58 | disposition home or self-care (01) ==
LOC: ED 13:19
DX: R06.00 Dyspnea, unspecified (principal); I10 Essential (primary) hypertension; J44.9 Chronic obstructive pulmonary disease, unspecified; Z87.891 Personal history of nicotine dependence
CPT/HCPCS: 71045; 80053; 82550; 82803; 83690; 83880; 84484; 85025; 85610; 85730; 93005; 96374; 99283; J1885

== ENCOUNTER 2018-06-29 13:20 | Outpatient (CLI) | payer MEDICAID | END 2018-06-29 13:21 | disposition home or self-care (01) | LOC: LAB 13:20 ==

== ENCOUNTER 2018-07-18 14:59 | Inpatient (IN) | payer MEDICAID ==
[2018-07-18] MEDS ORDERED: Morphine 4 mg/ml ISec IVP STA (16:01)
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
[2018-07-18 16:41] LABS: INR 1.09; PARTIAL THROMBOPLASTIN TIME 30.4 Seconds (26.9-38.3); PROTHROMBIN TIME 12.1 SECONDS (9.4-12.5)
[2018-07-18 16:54] LABS: TROPONIN I < 0.01 ng/mL
--- NOTE | 2018-07-18 16:57 | RAD ---
Date of service: 07/18/2018 HISTORY: CP COMPARISON: 03/03/2018 FINDINGS: LUNGS: No active pulmonary disease. PLEURA: No significant pleural effusion identified, no pneumothorax apparent. CARDIOVASCULAR: No aortic atherosclerotic calcification present. Normal cardiac size. No pulmonary vascular congestion. OSSEOUS STRUCTURES: No significant abnormalities. VISUALIZED UPPER ABDOMEN: Hiatal hernia OTHER FINDINGS: None. IMPRESSION: No active disease.
[2018-07-18 16:58] LABS: ALB/GLOB RATIO 1.2 (1.1-1.8); ALBUMIN 4.7 g/dL (3.0-4.8); ALT/SGPT 15 U/L (7-56); AST/SGOT 23 U/L (14-36); BLOOD UREA NITROGEN 11 mg/dL (7-21); CALCIUM 9.7 mg/dL (8.4-10.5); GFR NON-AFRICAN AMERICAN > 60
[2018-07-18 17:04] LABS: BASO # 0.01 K/mm3 (0.0-2.0); BASO % 0.2 % (0.0-3.0); EOS # 0.2 (0.0-0.7); EOS % 2.3 % (1.5-5.0); GRAN # 4.31 (1.4-6.5); GRAN % 65.9 % (50.0-68.0); HEMOGLOBIN 11.8 g/dL (12.0-16.0); LYMPH # 1.6 (1.2-3.4); LYMPH % 24.6 % (22.0-35.0); MEAN CELL VOLUME 104.9 fl (80.0-105.0); MEAN CORPUSCULAR HEMOGLOBIN 33.9 pg (25.0-35.0); MEAN CORPUSCULAR HGB CONC 32.3 g/dl (31.0-37.0); MEAN PLATELET VOLUME 9.5 fl (7.0-11.0); MONO # 0.5 (0.1-0.6); RBC 3.48 10^6/uL (3.5-6.1); RED CELL DISTRIBUTION WIDTH 13.5 % (11.5-14.5); WHITE BLOOD COUNT 6.5 10^3/uL (4.5-11.0)
[2018-07-18] MEDS ORDERED: Sodium Chloride 0.9% 1,000 ML IV STA (17:09)
[2018-07-18] MEDS ORDERED: Atrop/Hyosc/Scopal/PB Elixir (120 ml) PO STA (17:32)
[2018-07-18] MEDS ORDERED: Alum-Mag Hydrox-Simethicone Susp (30 mL) PO STA (17:32)
[2018-07-18] MEDS: Sodium Chloride 0.45% 1,000 ML IV SCH (20:01)
--- NOTE | 2018-07-18 20:14 | CARD ---
APPROVED REPORT Date of service: 07/18/2018 EKG Measurement Heart [id number] 150P8 [id number] <Conclusion> Sinus tachycardia Otherwise normal ECG
[2018-07-18] MEDS: Morphine 2 mg/ml ISec IVP PRN (20:22)
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
[2018-07-18 23:38] VITALS: BMI 29.6
[2018-07-19 06:18] LABS: MEAN CELL VOLUME 105.8 fl (80.0-105.0); MEAN CORPUSCULAR HEMOGLOBIN 33.4 pg (25.0-35.0); MEAN CORPUSCULAR HGB CONC 31.6 g/dl (31.0-37.0); MEAN PLATELET VOLUME 9.1 fl (7.0-11.0); RBC 3.29 10^6/uL (3.5-6.1); RED CELL DISTRIBUTION WIDTH 13.5 % (11.5-14.5)
[2018-07-19 06:52] LABS: ALB/GLOB RATIO 1.3 (1.1-1.8); ALBUMIN 4.1 g/dL (3.0-4.8); ALT/SGPT 22 U/L (7-56); AST/SGOT 24 U/L (14-36); BLOOD UREA NITROGEN 11 mg/dL (7-21); GFR NON-AFRICAN AMERICAN > 60
[2018-07-19] MEDS: Morphine 2 mg/ml ISec IVP PRN ×4 (07:56→22:03)
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
--- NOTE | 2018-07-19 12:16 | PN ---
DATE: 07/19/2018 SUBJECTIVE: She is here in observation level of care with nausea, vomiting, abdominal pain, cannot get comfortable, not sleeping well, just nauseous on Ambien, Keppra, Lopressor, morphine, Paxil, Pepcid, Reglan, IV fluids, Xanax and Zofran. PHYSICAL EXAMINATION: VITAL SIGNS: She has a 98.6 temperature, 79 pulse regular rate, 115/65 blood pressure, 18 respiratory rate, 96% O2 sat on 2 liters. HEENT: Head is atraumatic, normocephalic. HEART: Regular rate. LUNGS: Decreased breath sounds but clear. ABDOMEN: Distended. Decreased bowel sounds, very bloated, discomfort all over, but no guarding or rebound. EXTREMITIES: No extremity edema. LABORATORY DATA: She currently has a 5 white count, 11 hemoglobin, 34.8 hematocrit with 247 platelets. 1.09 INR. Sodium is 141, potassium 3.9, BUN 11, creatinine 0.5, GFR is greater than 60, sugar is 98, calcium is 9, total bili is 0.5, AST is 24, ALT is 22, alk phos 86. Troponin I is less than 0.01, total protein 7.3. MEDICATIONS: She is on Ambien, Keppra, Lopressor, morphine, Paxil, Pepcid, Reglan, IV fluids, Xanax and Zofran. ASSESSMENT AND PLAN: Waiting for GI to see her. I think she is also having gastroparesis on top of her abdominal pain. She is not hungry, does not want to eat or drink anything at this time. She is getting Zofran, waiting for GI to come in. We will check her labs tomorrow and hopefully tomorrow she will settle down. We will continue aggressive treatment and care on Betty Zurita who is in observation. Asher Rodrigez DO
[2018-07-20] MEDS: Morphine 2 mg/ml ISec IVP PRN ×5 (02:36→21:09)
[2018-07-20] MEDS: Pantoprazole 40 mg EC Tab PO SCH (05:53)
[2018-07-20] MEDS: Sodium Chloride 0.45% 1,000 ML IV SCH (06:40)
[2018-07-20 06:47] LABS: HEMOGLOBIN 11.5 g/dL (12.0-16.0); MEAN CORPUSCULAR HEMOGLOBIN 33.6 pg (25.0-35.0); MEAN PLATELET VOLUME 9.2 fl (7.0-11.0); RBC 3.42 10^6/uL (3.5-6.1); RED CELL DISTRIBUTION WIDTH 13.2 % (11.5-14.5); WHITE BLOOD COUNT 6.1 10^3/uL (4.5-11.0)
[2018-07-20 07:09] LABS: ALB/GLOB RATIO 1.3 (1.1-1.8); ALBUMIN 4.3 g/dL (3.0-4.8); ALT/SGPT 27 U/L (7-56); AST/SGOT 25 U/L (14-36); BLOOD UREA NITROGEN 11 mg/dL (7-21); GFR NON-AFRICAN AMERICAN > 60
[2018-07-20 08:21] VITALS: RESP 18
--- NOTE | 2018-07-20 10:36 | CP.PCM.PN ---
<ShubhammarlinrahatCameronflorencio - Last Filed: 07/20/18 12:47> Subjective - Date & Time of Evaluation Date of Evaluation: 07/20/18 Time of Evaluation: 09:00 - Subjective Subjective: PGY-4 GI Fellow Prog Note Pt lying in bed when seen this AM. States she is feeling about the same, maybe little worse. Still with nausea and epigastric/LUQ discomfort. 5 point ROS negative other than stated above Objective - Vital Signs/Intake and Output Vital Signs (last 24 hours): Temp Pulse Resp BP Pulse Ox 98 F 72 18 103/46 L 95 07/20/18 06:00 07/20/18 09:35 07/20/18 06:00 07/20/18 09:35 07/20/18 06:00 Intake and Output: 07/20/18 07/20/18 06:59 18:59 Intake Total 480 Balance 480 - Medications Medications: Current Medications Alprazolam (Xanax) 0.5 mg PO TID [facility]; Protocol Last Admin: 07/20/18 09:35 Dose: 0.5 mg Famotidine (Pepcid) 20 mg IVP DAILY [facility] Last Admin: 07/20/18 09:36 Dose: 20 mg Sodium Chloride (Sodium Chloride 0.45%) 1,000 mls @ 40 mls/hr IV .Q24H [facility] Last Admin: 07/20/18 06:40 Dose: 40 mls/hr Levetiracetam (Keppra) 750 mg PO BID [facility] Last Admin: 07/20/18 09:35 Dose: 750 mg Metoclopramide HCl (Reglan) 10 mg IVP ACHS [facility] Last Admin: 07/20/18 09:35 Dose: 10 mg Metoprolol Tartrate (Lopressor) 25 mg PO BID [facility] Last Admin: 07/20/18 09:35 Dose: 25 mg Morphine Sulfate (Morphine) 2 mg IVP Q3H PRN PRN Reason: Pain, moderate (4-7) Last Admin: 07/20/18 06:36 Dose: 2 mg Ondansetron HCl (Zofran Inj) 4 mg IVP Q6H PRN PRN Reason: Nausea/Vomiting Pantoprazole Sodium (Protonix Ec Tab) 40 mg PO 0600 [facility] Last Admin: 07/20/18 05:53 Dose: 40 mg Paroxetine HCl (Paxil) 20 mg PO DAILY [facility] Last Admin: 07/20/18 09:35 Dose: 20 mg Zolpidem Tartrate (Ambien) 5 mg PO HS PRN; Protocol PRN Reason: Insomnia Last Admin: 07/19/18 22:13 Dose: 5 mg - Labs Labs: 07/20/18 06:20 07/20/18 06:20 PT 12.1 SECONDS (9.4-12.5) 07/18/18 16:26 INR 1.09 07/18/18 16:26 APTT 30.4 Seconds (26.9-38.3) 07/18/18 16:26 - Constitutional Appears: Well, No Acute Distress - Head Exam Head Exam: ATRAUMATIC, NORMAL INSPECTION - Eye Exam Eye Exam: EOMI. absent: Scleral icterus - ENT Exam ENT Exam: Mucous Membranes Dry. absent: Mucous Membranes Moist - Respiratory Exam Respiratory Exam: NORMAL BREATHING PATTERN. absent: Accessory Muscle Use, Respiratory Distress - GI/Abdominal Exam GI & Abdominal Exam: Distended (mildly), Soft, Tenderness (ttp in epigastric and LUQ w/o guarding), Normal Bowel Sounds. absent: Bruit, Firm, Guarding, Rigid, Mass, Organomegaly, Pulsatile Mass Assessment and Plan - Assessment and Plan (Free Text) Assessment: 57 yo WF with PMHx significant for seizure disorder, COPD, DM2, HTN, anxiety and hiatal hernia s/p fundoplication with multiple revisions who presented to the hospital with abdominal pain, N/V. -Epigastric abdominal pain -H/O Hiatal hernia s/p fundoplication: Possible vagal nerve injury induced gastroparesis? Plan: -Esophagogram today -NPO except meds until study complete -Trial Full Liq Diet post study -Pantoprazole 40 mg QD -Likely EGD on 07/21/18 -NPO at [place] Pt seen and examined with Dr Berry; please see attestation for further recs/changes. <Herminio Berry - Last Filed: 07/20/18 13:41> Objective - Vital Signs/Intake and Output Vital Signs (last 24 hours): Temp Pulse Resp BP Pulse Ox 98 F 72 18 103/46 L 95 07/20/18 06:00 07/20/18 09:35 07/20/18 06:00 07/20/18 09:35 07/20/18 06:00 Intake and Output: 07/20/18 07/20/18 06:59 18:59 Intake Total 480 Balance 480 - Medications Medications: Current Medications Albuterol Sulfate (Albuterol 0.5% Inhal Thais (2.5 Mg/0.5 Ml) Ud) 2 mg IH [id number] MANJULA Albuterol/Ipratropium (Duoneb 3 Mg/0.5 Mg (3 Ml) Ud) 3 ml IH [id number] PRN PRN Reason: Cough and congestion Alprazolam (Xanax) 0.5 mg PO TID [facility]; Protocol Last Admin: 07/20/18 09:35 Dose: 0.5 mg Famotidine (Pepcid) 20 mg IVP DAILY [facility] Last Admin: 07/20/18 09:36 Dose: 20 mg Sodium Chloride (Sodium Chloride 0.45%) 1,000 mls @ 40 mls/hr IV .Q24H [facility] Last Admin: 07/20/18 06:40 Dose: 40 mls/hr Levetiracetam (Keppra) 500 mg PO BID [facility] Metoclopramide HCl (Reglan) 10 mg IVP ACHS [facility] Last Admin: 07/20/18 11:14 Dose: Not Given Metoprolol Tartrate (Lopressor) 25 mg PO BID [facility] Last Admin: 07/20/18 09:35 Dose: 25 mg Morphine Sulfate (Morphine) 2 mg IVP Q3H PRN PRN Reason: Pain, moderate (4-7) Last Admin: 07/20/18 11:14 Dose: 2 mg Ondansetron HCl (Zofran Inj) 4 mg IVP Q6H PRN PRN Reason: Nausea/Vomiting Pantoprazole Sodium (Protonix Ec Tab) 40 mg PO 0600 [facility] Last Admin: 07/20/18 05:53 Dose: 40 mg Paroxetine HCl (Paxil) 20 mg PO DAILY [facility] Last Admin: 07/20/18 09:35 Dose: 20 mg Pregabalin (Lyrica) 75 mg PO HS [facility] Zolpidem Tartrate (Ambien) 5 mg PO HS PRN; Protocol PRN Reason: Insomnia Last Admin: 07/19/18 22:13 Dose: 5 mg - Labs Labs: 07/20/18 06:20 07/20/18 06:20 PT 12.1 SECONDS (9.4-12.5) 07/18/18 16:26 INR 1.09 07/18/18 16:26 APTT 30.4 Seconds (26.9-38.3) 07/18/18 16:26 Attending/Attestation - Attestation I have personally seen and examined this patient.: Yes I have fully participated in the care of the patient.: Yes I have reviewed all pertinent clinical information, including history, physical exam and plan: Yes Notes (Text): 07/20/18 13:38 I have seen and examined patient with GI fellow. No acute events overnight, she is seen resting in bed comfortably. She continues to report LUQ abdominal pain, though improved compared to prior. She denies nausea, vomiting, fever/chills. Review of vitals from today are normal. Seizure disorder COPD DM/HTN Anxiety Hiatal hernia s/p surgical repair complicated by gastroparesis Abdominal pain - Trial of liquid diet as tolerated - Continue with supportive care, IVF hydration - Obtain barium esophagram for further evaluation - Continue with PPI therapy - Pending results, would consider EGD for further treatment. NPO after midni t, will continue to monitor patient clinical course.
--- NOTE | 2018-07-20 12:27 | PN ---
DATE: 07/20/2018 SUBJECTIVE: I saw her this morning in bed. She is in lot of pain in her abdomen. She is also throwing up clear liquid in front of me. We are going to try her on some clear liquids, I do not know how she is going to keep that down. She is on IV fluids, Ambien, Keppra, Lopressor, morphine for pain, she has severe abdominal pain. Paxil, Pepcid, Protonix, Reglan, Xanax, and Zofran. Zofran is not helping that much. If she does not eat her breakfast, I believe GI is going to scope her this morning and do an upper endoscopy. PHYSICAL EXAMINATION: VITAL SIGNS: She has 98 temperature, 72 pulse, 103/46 blood pressure, 18 respiratory rate, 95% O2 sat on 2 liters. HEAD: Atraumatic, normocephalic. HEART: Regular rate. LUNGS: Decreased breath sounds, but clear. ABDOMEN: Mildly distended, diffusely tender all over. Questionable guarding, but no rebound. EXTREMITIES: No edema. She could tell she is quite uncomfortable. IV fluids are running. I do not think she can clear liquids for breakfast. I do not hope they can do an endoscopy today, I changed it to an inpatient. LABORATORY DATA: She has 6.1 white count, 11.5 hemoglobin, 35.9 hematocrit, and 247 platelets. She has sodium 139, potassium 4.2, BUN is 11, creatinine 0.5, GFR is greater than 60, sugars 107, calcium is 9, total bili is 0.4. AST is 25, ALT is 27, alk phos 91, total protein 7.6. IMPRESSION: She has a history of hiatal hernias with two surgeries and gastroparesis, which is why need to get her to a surgeon for third hiatal hernia surgery. I think that is what she is having, but right now she has nausea and vomiting, cannot keep anything down as per GI. Asher Rodrigez DO [facility]
[2018-07-20] MEDS ORDERED: Albuterol-Ipratrop 3 mg / 0.5 (3 ml) UD IH PRN (14:00)
[2018-07-20] MEDS ORDERED: Barium Sulfate for Susp 96% w/w 176g Bottle PR ONE (15:06)
--- NOTE | 2018-07-20 16:15 | RAD ---
Date of service: 07/20/2018 HISTORY: Dysphagia. COMPARISON: None. TECHNIQUE: Single contrast esophagram was performed. FINDINGS: Patient tolerated procedure well. ESOPHAGUS: Esophageal mucosa appeared preserved. No evidence of stricture or mass lesion. HIATAL HERNIA: There is a paraesophageal hernia. There is compression of the distal esophagus with mild dilatation. There thickening of the gastric folds in the herniated portion of the stomach consistent with gastritis GASTROESOPHAGEAL REFLUX: Not demonstrated. OTHER FINDINGS: None. IMPRESSION: There is a paraesophageal hernia. There is compression of the distal esophagus with mild dilatation. There thickening of the gastric folds in the herniated portion of the stomach consistent with gastritis
[2018-07-20] MEDS ORDERED: Albuterol 0.5% Inhal Sol (2.5 mg/0.5 ml) UD IH SCH (19:30)
[2018-07-21] MEDS: Morphine 2 mg/ml ISec IVP PRN ×3 (02:52→10:30)
[2018-07-21] MEDS: Pantoprazole 40 mg EC Tab PO SCH (06:13)
[2018-07-21 07:36] LABS: HEMOGLOBIN 11.6 g/dL (12.0-16.0); MEAN CELL VOLUME 104.6 fl (80.0-105.0); MEAN CORPUSCULAR HEMOGLOBIN 33.4 pg (25.0-35.0); MEAN PLATELET VOLUME 9.3 fl (7.0-11.0); RBC 3.47 10^6/uL (3.5-6.1); RED CELL DISTRIBUTION WIDTH 13.1 % (11.5-14.5); WHITE BLOOD COUNT 5.2 10^3/uL (4.5-11.0)
[2018-07-21 07:54] LABS: ALB/GLOB RATIO 1.3 (1.1-1.8); ALBUMIN 4.3 g/dL (3.0-4.8); ALT/SGPT 29 U/L (7-56); AST/SGOT 26 U/L (14-36); BLOOD UREA NITROGEN 7 mg/dL (7-21); CALCIUM 9.3 mg/dL (8.4-10.5); GFR NON-AFRICAN AMERICAN > 60
[2018-07-21] MEDS ORDERED: Propofol 10 mg/ml Inj (20 ML) ONE (08:18)
[2018-07-21] MEDS ORDERED: Lidocaine PF 2% (5 ml) Inj (For Cardiac Arrhy) ONE (08:24)
[2018-07-21 09:08] VITALS: TEMP 98.7
[2018-07-21] MEDS ORDERED: Sodium Chloride 0.9% 1,000 ML IV SCH (09:30)
[2018-07-21 09:54] VITALS: O2SAT 94
[2018-07-21 10:41] VITALS: BP 109/59; PULSE 71
--- NOTE | 2018-07-21 11:41 | CP.PCM.PN ---
Subjective - Date & Time of Evaluation Date of Evaluation: 07/21/18 Time of Evaluation: 11:38 - Subjective Subjective: Patient seen and examined, resting comfortably. No acute events overnight. s/p EGD today showing paraesophageal hernia, gastritis, s/p filemon fundoplipcation. Objective - Vital Signs/Intake and Output Vital Signs (last 24 hours): Temp Pulse Resp BP Pulse Ox 98.7 F 71 18 109/59 L 94 L 07/21/18 10:07 07/21/18 10:35 07/21/18 10:07 07/21/18 10:35 07/21/18 10:07 Intake and Output: 07/21/18 07/21/18 06:59 18:59 Intake Total 660 Balance 660 - Medications Medications: Current Medications Albuterol Sulfate (Albuterol 0.5% Inhal Thais (2.5 Mg/0.5 Ml) Ud) 2 mg IH [id number] MANJULA Albuterol/Ipratropium (Duoneb 3 Mg/0.5 Mg (3 Ml) Ud) 3 ml IH [id number] PRN PRN Reason: Cough and congestion Alprazolam (Xanax) 0.5 mg PO TID [facility]; Protocol Last Admin: 07/21/18 10:36 Dose: 0.5 mg Famotidine (Pepcid) 20 mg IVP DAILY [facility] Last Admin: 07/21/18 10:46 Dose: 20 mg Sodium Chloride (Sodium Chloride 0.45%) 1,000 mls @ 40 mls/hr IV .Q24H [facility] Last Admin: 07/20/18 06:40 Dose: 40 mls/hr Levetiracetam (Keppra) 500 mg PO BID [facility] Last Admin: 07/21/18 10:35 Dose: 500 mg Metoclopramide HCl (Reglan) 10 mg IVP ACHS [facility] Last Admin: 07/21/18 10:46 Dose: 10 mg Metoprolol Tartrate (Lopressor) 25 mg PO BID [facility] Last Admin: 07/21/18 10:35 Dose: 25 mg Morphine Sulfate (Morphine) 2 mg IVP Q3H PRN PRN Reason: Pain, moderate (4-7) Last Admin: 07/21/18 10:30 Dose: 2 mg Ondansetron HCl (Zofran Inj) 4 mg IVP Q6H PRN PRN Reason: Nausea/Vomiting Pantoprazole Sodium (Protonix Ec Tab) 40 mg PO 0600 [facility] Last Admin: 07/21/18 06:13 Dose: 40 mg Paroxetine HCl (Paxil) 20 mg PO DAILY [facility] Last Admin: 07/21/18 10:36 Dose: 20 mg Pregabalin (Lyrica) 75 mg PO HS MANJULA Last Admin: 07/20/18 22:01 Dose: 75 mg Zolpidem Tartrate (Ambien) 5 mg PO HS PRN; Protocol PRN Reason: Insomnia Last Admin: 07/20/18 22:01 Dose: 5 mg - Labs Labs: 07/21/18 07:20 07/21/18 07:20 PT 12.1 SECONDS (9.4-12.5) 07/18/18 16:26 INR 1.09 07/18/18 16:26 APTT 30.4 Seconds (26.9-38.3) 07/18/18 16:26 Assessment and Plan - Assessment and Plan (Free Text) Assessment: COPD DM/HTN Seizure disorder Nausea, vomiting - resolved s/p EGD today showing paraesophageal hernia, gastritis, filemon fundoplication Plan: - Advance diet as tolerated - Continue with PPI therapy - Follow up EGD biopsy results - From GI standpoint ok to discharge home with further outpatient follow up. She will require CT surgical follow up for possible hernia repair, fundoplication revision.
--- NOTE | 2018-07-21 16:49 | PN ---
DATE: 07/21/2018 SUBJECTIVE: She was endoscopied by GI today and they felt that they did not find anything new except that she has a paraesophageal hernia, which needs CAT scan surgical followup and he is going to advance her diet when she go home this afternoon which is good. So, she will follow up with me in the office, still try to get her to a gastroesophageal specialist in surgery who can repair her hiatal hernia issue and she did well, otherwise she was here for abdominal pain, gastroparesis, and hiatal hernia. Asher Rodrigez DO
== END 2018-07-21 14:36 | disposition home or self-care (01) | DRG 182 ==
LOC: ED 14:59 → ERH 17:56 → 5RNO 21:39 → OBSVTOIN 07-20 09:17
PROVIDERS: ADMIT Family Medicine; ATTEND Family Medicine
PROC: 0DB68ZX Excision of Stomach, Via Natural or Artificial Opening Endoscopic, Diagnostic (ICD-10-PCS; principal; 2018-07-21 09:45)
DX: K44.9 Diaphragmatic hernia without obstruction or gangrene (principal); E11.43 Type 2 diabetes mellitus with diabetic autonomic (poly)neuropathy; J44.9 Chronic obstructive pulmonary disease, unspecified; K31.84 Gastroparesis; K29.70 Gastritis, unspecified, without bleeding; K21.9 Gastro-esophageal reflux disease without esophagitis; I10 Essential (primary) hypertension; F41.0 Panic disorder [episodic paroxysmal anxiety]; G40.909 Epilepsy, unspecified, not intractable, without status epilepticus; R10.12 Left upper quadrant pain; G89.29 Other chronic pain; I25.2 Old myocardial infarction; Z87.891 Personal history of nicotine dependence

== ENCOUNTER 2018-08-17 13:14 | Outpatient (CLI) | payer MEDICAID | END 2018-08-17 13:15 | disposition home or self-care (01) | LOC: RAD 13:14 ==

== ENCOUNTER 2018-09-13 10:48 | Outpatient (CLI) | payer MEDICAID | END 2018-09-13 10:49 | disposition home or self-care (01) | LOC: RAD 10:48 ==

== ENCOUNTER 2018-10-08 18:22 | Inpatient (IN) | payer MEDICAID ==
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
[2018-10-08] MEDS ORDERED: Morphine 2 mg/ml ISec IVP STA (18:39)
[2018-10-08] MEDS ORDERED: Sodium Chloride 0.9% 500 ML IV SCH (19:00)
[2018-10-08 19:41] LABS: EOS # 0.1 (0.0-0.7); EOS % 2.6 % (1.5-5.0); HEMOGLOBIN 10.9 g/dL (12.0-16.0); LYMPH # 2.1 (1.2-3.4); LYMPH % 42.7 % (22.0-35.0); MEAN CELL VOLUME 103.4 fl (80.0-105.0); MEAN CORPUSCULAR HEMOGLOBIN 33.5 pg (25.0-35.0); MEAN CORPUSCULAR HGB CONC 32.4 g/dl (31.0-37.0); MEAN PLATELET VOLUME 9.7 fl (7.0-11.0); MONO # 0.3 (0.1-0.6); RBC 3.25 10^6/uL (3.5-6.1); RED CELL DISTRIBUTION WIDTH 14.1 % (11.5-14.5)
[2018-10-08 19:44] LABS: VENOUS BLOOD GAS BASE EXCESS 3.7 mmol/L (0.0-2.0); VENOUS BLOOD GAS PO2 151 mm/Hg (30-55); VENOUS BLOOD PH 7.46 (7.32-7.43)
[2018-10-08 19:50] LABS: INR 0.95; PARTIAL THROMBOPLASTIN TIME 27.1 Seconds (26.9-38.3); PROTHROMBIN TIME 10.5 SECONDS (9.4-12.5)
[2018-10-08 19:51] LABS: ALB/GLOB RATIO 1.5 (1.1-1.8); ALBUMIN 4.2 g/dL (3.0-4.8); ALT/SGPT 14 U/L (7-56); AMYLASE 92 U/L (35-125); AST/SGOT 16 U/L (14-36); BLOOD UREA NITROGEN 11 mg/dL (7-21); CALCIUM 9.2 mg/dL (8.4-10.5); GFR NON-AFRICAN AMERICAN > 60; LIPASE 982 U/L (23-300)
[2018-10-08 20:02] LABS: B-TYPE NATRIURETIC PEPTIDE 132 pg/mL (0-450); TROPONIN I < 0.01 ng/mL
[2018-10-08] MEDS ORDERED: Iohexol 350 MG/100 ML VIAL ONE (20:42)
[2018-10-08 20:43] LABS: URINE BILIRUBIN NEGATIVE (NEGATIVE); URINE BLOOD TRACE-LYSED (NEGATIVE); URINE GLUCOSE (UA) NEGATIVE (NEGATIVE); URINE LEUKOCYTE ESTERASE SMALL Leu/uL (NEGATIVE); URINE PROTEIN NEGATIVE mg/dL (<30 mg/dL); URINE UROBILINOGEN 0.2 E.U./dL (<1 E.U./dL)
[2018-10-08 20:44] LABS: URINE APPEARANCE CLEAR (CLEAR); URINE COLOR LIGHT YELLOW (YELLOW)
[2018-10-08 20:52] LABS: URINE WBC 0 - 2 /hpf (0-6)
[2018-10-08 20:53] LABS: URINE CALCIUM OXALATE CRYSTALS FEW /hpf
[2018-10-08] MEDS ORDERED: Sodium Chloride 0.9% 1,000 ML IV SCH (21:00)
[2018-10-08] MEDS ORDERED: Sodium Chloride 0.45% 1,000 ML IV SCH (21:45)
[2018-10-08 22:43] VITALS: BMI 29.9
[2018-10-08 22:48] LABS: VENOUS BLOOD GAS BASE EXCESS 2.5 mmol/L (0.0-2.0); VENOUS BLOOD GAS PO2 111 mm/Hg (30-55); VENOUS BLOOD PH 7.46 (7.32-7.43)
[2018-10-08] MEDS: Insulin Reg-MEDIUM-Coverage SC SCH (23:36)
[2018-10-08] MEDS: Morphine 2 mg/ml ISec IVP PRN (23:39)
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
[2018-10-09] MEDS: Morphine 2 mg/ml ISec IVP PRN (04:14)
[2018-10-09 07:11] LABS: HEMOGLOBIN 11.7 g/dL (12.0-16.0); MEAN CELL VOLUME 104.5 fl (80.0-105.0); MEAN CORPUSCULAR HEMOGLOBIN 33.1 pg (25.0-35.0); MEAN CORPUSCULAR HGB CONC 31.6 g/dl (31.0-37.0); MEAN PLATELET VOLUME 9.8 fl (7.0-11.0); RBC 3.54 10^6/uL (3.5-6.1); RED CELL DISTRIBUTION WIDTH 14.2 % (11.5-14.5); WHITE BLOOD COUNT 7.3 10^3/uL (4.5-11.0)
[2018-10-09 07:31] LABS: ALB/GLOB RATIO 1.4 (1.1-1.8); ALBUMIN 4.5 g/dL (3.0-4.8); ALT/SGPT 15 U/L (7-56); AST/SGOT 19 U/L (14-36); BLOOD UREA NITROGEN 9 mg/dL (7-21); CALCIUM 9.7 mg/dL (8.4-10.5); GFR NON-AFRICAN AMERICAN > 60; LIPASE 165 U/L (23-300)
[2018-10-09] MEDS: Insulin Reg-MEDIUM-Coverage SC SCH ×4 (08:12→22:48)
[2018-10-09] MEDS: Morphine 4 mg/ml ISec IVP PRN ×5 (08:31→22:48)
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
--- NOTE | 2018-10-09 09:27 | RAD ---
Date of service: 10/08/2018 HISTORY: SOB COMPARISON: 07/18/2018 TECHNIQUE: 1 view obtained. FINDINGS: LUNGS: No active pulmonary disease. PLEURA: No significant pleural effusion identified, no pneumothorax apparent. CARDIOVASCULAR: No aortic atherosclerotic calcification present. Normal cardiac size. No pulmonary vascular congestion. OSSEOUS STRUCTURES: No significant abnormalities. VISUALIZED UPPER ABDOMEN: Hiatal hernia OTHER FINDINGS: None. IMPRESSION: No active disease.
--- NOTE | 2018-10-09 09:53 | CT ---
Date of service: 10/08/2018 PROCEDURE: CT Abdomen and Pelvis without intravenous contrast HISTORY: LUQ, epigastric pain, vomiting COMPARISON: 01/04/2018 TECHNIQUE: Technique. Contrast dose: Radiation dose: Total exam DLP = 628.39 mGy-cm. This CT exam was performed using one or more of the following dose reduction techniques: Automated exposure control, adjustment of the mA and/or kV according to patient size, and/or use of iterative reconstruction technique. FINDINGS: LOWER THORAX: Moderate hiatal hernia. LIVER: Unremarkable. No gross lesion or ductal dilatation. GALLBLADDER AND BILE DUCTS: Gallstones. PANCREAS: Unremarkable. No gross lesion or ductal dilatation. SPLEEN: Unremarkable. ADRENALS: Unremarkable. No mass. KIDNEYS AND URETERS: 13 millimeter right renal cyst. No hydronephrosis. No solid mass. VASCULATURE: Unremarkable. No aortic aneurysm. No aortic atherosclerotic calcification or mural plaque present. BOWEL: Unremarkable. No obstruction. No gross mural thickening. APPENDIX: Unremarkable. Normal appendix. PERITONEUM: Unremarkable. No free fluid. No free air. LYMPH NODES: Unremarkable. No enlarged lymph nodes. BLADDER: Unremarkable. REPRODUCTIVE: Unremarkable. BONES: No acute fracture. OTHER FINDINGS: Left posterior lateral flank hernia containing fat. IMPRESSION: No acute pathology. Hiatal hernia. Left posterior lateral flank hernia right renal cyst. Cholelithiasis.
--- NOTE | 2018-10-09 11:15 | PN ---
DATE: 10/09/2018 SUBJECTIVE: She comes in with the pancreatitis, abdominal pain, lipase. Not feeling well. crying this morning in pain, 2 mg of morphine that help she is n.p.o. on IV fluids. PHYSICAL EXAMINATION: VITAL SIGNS: She has 98.4 temp, 80 pulse, 102/52 blood pressure, 20 respiratory rate and 98% O2 sat on room air. HEENT: Head is atraumatic and normocephalic. HEART: Regular rate. LUNGS: Decreased breath sounds, but clear. ABDOMEN: Soft. Mildly distended. Mild tender. No guarding. No rebound. EXTREMITIES: No edema. LABORATORY DATA: She has a 7.3 white count, 11.7 hemoglobin, 37 hematocrit with a 284 platelets. Lactate is still high 2.3. Sodium 140, potassium 4.7, BUN 9, creatinine 0.5, GFR is greater than 60, sugar is 102, calcium is 9.7, total bili is 0.4, AST is 19, ALT is 15, alk phos 92 and total protein 7.7. Urine is small. The lipase came down which is good towards 65. I am awaiting consults Dr. Johnson, Dr. Berry, and Dr. Day due to her abdominal pain and her elevated lipase. Hopefully, in the next 24-hours we can find her going home, get physical therapy take a look at her also. She is weak and in a lot of pain. Asher Rodrigez DO MTDD
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
--- NOTE | 2018-10-09 14:03 | US ---
Date of service: 10/08/2018 HISTORY: RUQ, pancreas COMPARISON: None. TECHNIQUE: Sonographic evaluation of the abdomen. FINDINGS: LIVER: Measures 21 cm. Heterogeneous echogenicity of the liver parenchyma. No mass. No intrahepatic bile duct dilatation. GALLBLADDER: Unremarkable. No gallstones. COMMON BILE DUCT: Measures mm. No stones. No dilatation. PANCREAS: Unremarkable as visualized. No mass. No ductal dilatation. RIGHT KIDNEY: Measures cm. Normal echogenicity. No calculus, mass, or hydronephrosis. LEFT KIDNEY: Measures cm. Normal echogenicity. No calculus, mass, or hydronephrosis. SPLEEN: Normal in size and contour. No mass. AORTA: No aneurysmal dilatation. IVC: Unremarkable. OTHER FINDINGS: None. IMPRESSION: Hepatomegaly. Fatty liver.
--- NOTE | 2018-10-09 17:41 | CARD ---
APPROVED REPORT Date of service: 10/08/2018 EKG Measurement Heart [id number] <Conclusion> Normal sinus rhythm Normal ECG
[2018-10-10] MEDS: Morphine 4 mg/ml ISec IVP PRN ×2 (04:19→08:24)
--- NOTE | 2018-10-10 07:07 | CP.PCM.PN ---
<Awilda Jimenez - Last Filed: 10/10/18 09:00> Subjective - Date & Time of Evaluation Date of Evaluation: 10/10/18 Time of Evaluation: 07:03 - Subjective Subjective: Gastroenterology Fellow/PGY6 Progress Note Patient resting comfortably. Notes left upper quadrant abdominal pain this morning is similar to yesterday. Patient able to complete full range of motion during examination and resting comfortably when answering questions. Tolerated clear liquids. Requesting Ensure. No episodes of vomiting or diarrhea. A 12- point review of systems negative except for as above. Objective - Vital Signs/Intake and Output Vital Signs (last 24 hours): Temp Pulse Resp BP Pulse Ox 98.7 F 80 20 115/73 90 L 10/09/18 17:59 10/09/18 18:19 10/09/18 17:59 10/09/18 18:19 10/09/18 17:59 Intake and Output: 10/10/18 10/10/18 06:59 18:59 Intake Total 120 Balance 120 - Medications Medications: Current Medications Alprazolam (Xanax) 0.5 mg PO TID [facility]; Protocol Last Admin: 10/09/18 18:19 Dose: 0.5 mg Famotidine (Pepcid) 20 mg IVP [facility] Last Admin: 10/09/18 22:49 Dose: 20 mg Insulin Human Regular (Humulin R Med) 0 units SC [facility]; Protocol Last Admin: 10/09/18 22:48 Dose: Not Given Levetiracetam (Keppra) 750 mg PO BID [facility] Last Admin: 10/09/18 18:19 Dose: 750 mg Metoprolol Tartrate (Lopressor) 25 mg PO BID [facility] Last Admin: 10/09/18 18:19 Dose: 25 mg Morphine Sulfate (Morphine) 3 mg IVP Q3 PRN PRN Reason: Pain, severe (8-10) Last Admin: 10/10/18 04:19 Dose: 3 mg Pantoprazole Sodium (Protonix Inj) 40 mg IVP 0700 [facility] Paroxetine HCl (Paxil) 20 mg PO DAILY [facility] Last Admin: 10/09/18 09:38 Dose: 20 mg Pregabalin (Lyrica) 75 mg PO [facility] Last Admin: 10/09/18 22:49 Dose: 75 mg - Labs Labs: 10/09/18 06:30 10/09/18 06:30 PT 10.5 SECONDS (9.4-12.5) 10/08/18 19:30 INR 0.95 10/08/18 19:30 APTT 27.1 Seconds (26.9-38.3) 10/08/18 19:30 - Constitutional Appears: Non-toxic, No Acute Distress - Head Exam Head Exam: ATRAUMATIC, NORMOCEPHALIC - Eye Exam Eye Exam: EOMI, PERRL. absent: Scleral icterus Pupil Exam: PERRL. absent: Miosis, Mydriatic - ENT Exam ENT Exam: Mucous Membranes Moist, Normal Oropharynx - Neck Exam Neck Exam: Normal Inspection - Respiratory Exam Respiratory Exam: Clear to Ausculation Bilateral. absent: Rales, Rhonchi, Wheezes - Cardiovascular Exam Cardiovascular Exam: RRR, +S1, +S2. absent: Gallop, Rubs - GI/Abdominal Exam GI & Abdominal Exam: Soft, Tenderness, Normal Bowel Sounds, Organomegaly. absent: Distended, Firm, Guarding, Rigid, Rebound Additional comments: LUQ discomfort to palpation - Extremities Exam Extremities Exam: Normal Inspection - Neurological Exam Neurological Exam: Alert, Awake - Psychiatric Exam Psychiatric exam: Normal Affect, Normal Mood - Skin Skin Exam: Dry, Intact, Normal Color, Warm Assessment and Plan - Assessment and Plan (Free Text) Assessment: 58 year old female with history of Filemon fundoplication 08/2015 s/p two revisions complicated by chronic abdominal pain/gastroparesis/para-esophageal hernia, cholelithiasis, Seizures, CAD s/p stents, HTN, Diabetes, COPD, Depression, and Anxiety presenting with abdominal pain. Prior EGD 06/2018 showed H. pylori negative gastritis, para-esophageal hernia, and Filemon fundoplication. Prior EGD 03/2016 showed esophageal stenosis starting at 34cm from incisors with proximal dilation, fundoplication, and superficial esophageal erosions. Prior colonoscopy 04/2014 showed redundant colon and normal terminal ileum and random colon biopsies. Plan: -does not meet pancreatitis criteria -resolved lipase elevation -CT A/P- no acute pathology, pancreas normal -U/S- gallstones -tolerating clear liquid diet -follow up surgery recommendations -PPI ACB, Pepcid QHS, zofran PRN -okay from GI standpoint to slowly advance as tolerated to soft diabetic, low fat small frequent meals -stool infectious workup if diarrhea re-occurs -counselled to follow up with established surgeon to evaluate for Filemon revision- last follow up 07/2016 <Herminio Berry - Last Filed: 10/10/18 13:23> Objective - Vital Signs/Intake and Output Vital Signs (last 24 hours): Temp Pulse Resp BP Pulse Ox 97.7 F 83 20 93/47 L 94 L 10/10/18 09:07 10/10/18 11:50 10/10/18 09:07 10/10/18 11:50 10/10/18 09:07 Intake and Output: 10/10/18 10/10/18 06:59 18:59 Intake Total 120 Balance 120 - Medications Medications: Current Medications Acetaminophen (Tylenol 325mg Tab) 650 mg PO Q4H PRN PRN Reason: Pain, Mild (1-3) Alprazolam (Xanax) 0.5 mg PO TID [facility]; Protocol Last Admin: 10/10/18 10:32 Dose: 0.5 mg Famotidine (Pepcid) 20 mg IVP HS [facility] Last Admin: 10/09/18 22:49 Dose: 20 mg Sodium Chloride (Sodium Chloride 0.45%) 1,000 mls @ 60 mls/hr IV .[id number] [facility] Insulin Human Regular (Humulin R Med) 0 units SC ACHS [facility]; Protocol Last Admin: 10/10/18 08:30 Dose: Not Given Levetiracetam (Keppra) 750 mg PO BID [facility] Last Admin: 10/10/18 10:30 Dose: 750 mg Metoprolol Tartrate (Lopressor) 25 mg PO BID [facility] Last Admin: 10/10/18 10:31 Dose: Not Given Morphine Sulfate (Morphine) 1 mg IVP Q6 [facility] Ondansetron HCl (Zofran Inj) 4 mg IVP Q6H PRN PRN Reason: Nausea/Vomiting Last Admin: 10/10/18 10:32 Dose: 4 mg Pantoprazole Sodium (Protonix Inj) 40 mg IVP 0700 [facility] Last Admin: 10/10/18 10:30 Dose: 40 mg Paroxetine HCl (Paxil) 20 mg PO DAILY [facility] Last Admin: 10/10/18 10:31 Dose: 20 mg Pregabalin (Lyrica) 75 mg PO HS [facility] Last Admin: 10/09/18 22:49 Dose: 75 mg - Labs Labs: 10/10/18 06:20 10/10/18 06:20 PT 10.5 SECONDS (9.4-12.5) 10/08/18 19:30 INR 0.95 10/08/18 19:30 APTT 27.1 Seconds (26.9-38.3) 10/08/18 19:30 Attending/Attestation - Attestation I have fully participated in the care of the patient.: Yes I have reviewed all pertinent clinical information, including history, physical exam and plan: Yes Notes (Text): 10/10/18 13:22 CAD s/p stent HTN Hiatal hernia s/p filemon fundoplication COPD Depression Abdominal pain - Advance diet as tolerated - Follow up surgical recommendations, patient with cholelithiasis - Anti-emetic therapy PRN - Patient requires further follow up with CT surgeon for possible filemon revision. Will continue to monitor patient clinical course.
[2018-10-10 07:11] LABS: HEMOGLOBIN 12.1 g/dL (12.0-16.0); MEAN CORPUSCULAR HEMOGLOBIN 33.4 pg (25.0-35.0); MEAN CORPUSCULAR HGB CONC 31.8 g/dl (31.0-37.0); MEAN PLATELET VOLUME 9.8 fl (7.0-11.0); RBC 3.62 10^6/uL (3.5-6.1); RED CELL DISTRIBUTION WIDTH 13.9 % (11.5-14.5)
[2018-10-10 07:36] LABS: ALB/GLOB RATIO 1.3 (1.1-1.8); ALBUMIN 4.6 g/dL (3.0-4.8); ALT/SGPT 12 U/L (7-56); AST/SGOT 23 U/L (14-36); BLOOD UREA NITROGEN 12 mg/dL (7-21); CALCIUM 9.5 mg/dL (8.4-10.5); GFR NON-AFRICAN AMERICAN > 60
[2018-10-10] MEDS: Insulin Reg-MEDIUM-Coverage SC SCH ×4 (08:30→21:11)
--- NOTE | 2018-10-10 08:59 | CP.PCM.PN ---
Subjective - Date & Time of Evaluation Date of Evaluation: 10/10/18 Time of Evaluation: 07:30 - Subjective Subjective: General Surgery Progress Note for Dr. Shay Parada, PGY1 Patient seen and examined at bedside this morning. No acute events reported overnight. Patient reports nausea with CLD and endorses poor apetite. Reports abdominal pain is not improved from yesterday. Denies bowel movement and flatus. Denies CP/SOB/fevers/chills/vomiting. Objective - Vital Signs/Intake and Output Vital Signs (last 24 hours): Temp Pulse Resp BP Pulse Ox 98.7 F 80 20 115/73 90 L 10/09/18 17:59 10/09/18 18:19 10/09/18 17:59 10/09/18 18:19 10/09/18 17:59 Intake and Output: 10/10/18 10/10/18 06:59 18:59 Intake Total 120 Balance 120 - Medications Medications: Current Medications Alprazolam (Xanax) 0.5 mg PO TID [facility]; Protocol Last Admin: 10/09/18 18:19 Dose: 0.5 mg Famotidine (Pepcid) 20 mg IVP [facility] Last Admin: 10/09/18 22:49 Dose: 20 mg Insulin Human Regular (Humulin R Med) 0 units SC [facility]; Protocol Last Admin: 10/10/18 08:30 Dose: Not Given Levetiracetam (Keppra) 750 mg PO BID [facility] Last Admin: 10/09/18 18:19 Dose: 750 mg Metoprolol Tartrate (Lopressor) 25 mg PO BID [facility] Last Admin: 10/09/18 18:19 Dose: 25 mg Morphine Sulfate (Morphine) 3 mg IVP Q3 PRN PRN Reason: Pain, severe (8-10) Last Admin: 10/10/18 08:24 Dose: 3 mg Pantoprazole Sodium (Protonix Inj) 40 mg IVP 0700 [facility] Paroxetine HCl (Paxil) 20 mg PO DAILY [facility] Last Admin: 10/09/18 09:38 Dose: 20 mg Pregabalin (Lyrica) 75 mg PO [facility] Last Admin: 10/09/18 22:49 Dose: 75 mg - Labs Labs: 10/10/18 06:20 10/10/18 06:20 PT 10.5 SECONDS (9.4-12.5) 10/08/18 19:30 INR 0.95 10/08/18 19:30 APTT 27.1 Seconds (26.9-38.3) 10/08/18 19:30 Physical Exam - Constitutional Appears: Non-toxic, No Acute Distress - Head Exam Head Exam: ATRAUMATIC, NORMAL INSPECTION - Eye Exam Eye Exam: EOMI Pupil Exam: PERRL - ENT Exam ENT Exam: Mucous Membranes moist - Respiratory Exam Respiratory Exam: Clear to Auscultation Bilateral. absent: Accessory Muscle Use, Wheezes, Respiratory Distress - Cardiovascular Exam Cardiovascular Exam: REGULAR RHYTHM. absent: Tachycardia - GI/Abdominal Exam GI & Abdominal Exam: Normal Bowel Sounds, Soft. absent: Distended, Firm, Guarding Additional comments: LLQ tenderness appreciated with superficial palpation. Kee sign is negative. - Extremities Exam Extremities exam: Positive for: normal inspection, pedal pulses present. Negative for: calf tenderness, tenderness - Neurological Exam Neurological exam: Alert, CN II-XII Intact, Oriented x3 - Psychiatric Exam Psychiatric exam: Normal Affect, Normal Mood - Skin Skin Exam: Normal Color, Warm Assessment and Plan - Assessment and Plan (Free Text) Assessment: This is a 58 year old female with PMH significant for hiatal hernia surgeries, herniated discs, panic attacks presenting to the hospital for abdominal pain and admitted for abdominal pain. EGD 06/2018 showed gastritis, paraesophageal hernia, filemon fundoplication. History hiatal hernia repair s/p fundoplication Panic attacks DM Plan: -continue CLD, patient still nauseas -pain control, zofran prn -protonix IVP -CTAP - no acute pathology, cholelithiasis. -Abd US shows hepatomegaly, fatty liver. -unlikely gallstone pancreatitis - does not meet criteria -as per GI, follow up with established surgeon to evaluate for Filemon revision (last follow up 07/2016) -further recommendations per Dr. Day
[2018-10-10] MEDS ORDERED: Morphine 2 mg/ml ISec IVP ONE (11:50)
[2018-10-10] MEDS ORDERED: Morphine 2 mg/ml ISec IVP SCH (12:00)
[2018-10-10] MEDS: Sodium Chloride 0.45% 1,000 ML IV SCH ×2 (15:10→21:16)
[2018-10-10] MEDS: Morphine 4 mg/ml ISec IVP SCH ×3 (16:14→22:53)
--- NOTE | 2018-10-11 00:31 | DS ---
HISTORY OF PRESENT ILLNESS: She is asking for Ensure. She ate her clear liquids okay, that was yesterday. We will increase her diet for breakfast to full liquids and regular for lunch. If she does well, she will be discharged home later this afternoon if she eats well for lunch. She is also getting Ensure. Her pain is definitely subsided. MEDICATIONS: She is on insulin, Keppra, Lopressor, Lyrica, morphine, we will decrease Paxil, , Protonix, Xanax and Zofran. PHYSICAL EXAMINATION: VITAL SIGNS: She has a 98.7 temperature, 80 pulse, 115/70 blood pressure, 20 respiratory rate, and 93% O2 sat on room air. HEENT: Head is atraumatic and normocephalic. HEART: Regular rate. LUNGS: Decreased breath sounds. ABDOMEN: She has a left flank hernia. Abdomen is soft and nontender. Positive bowel sounds. hiatal hernia. EXTREMITIES: No edema. LABORATORY DATA: She has a 6 white count, 12.1 hemoglobin, 38 hematocrit with 262 platelets. INR is 0.95. She has a 139 sodium, potassium 4.2, BUN 12, creatinine 0.4, GFR is greater than 60, sugar is 106, calcium is 9.5, and total bilirubin is 0.6. AST 23, ALT 12, alk phos 105, total protein 8.1, and urine was small. ASSESSMENT AND PLAN: She is seen by GI, liquid diet advance slowly as tolerated. Continue PPI and antinausea medication as needed. I am hoping that she does well today for breakfast and lunch, she will get discharge this afternoon home. improved some, I am going to decrease the pain medications and change the pain medications around greatly and hopefully she will be discharged today afternoon. Betty Zurita who had an elevated lipase and possible pancreatitis. Asher Rodrigez DO MTDD
[2018-10-11] MEDS: Morphine 4 mg/ml ISec IVP SCH ×7 (00:54→23:56)
[2018-10-11] MEDS: Sodium Chloride 0.45% 1,000 ML IV SCH (04:38)
[2018-10-11] MEDS: Insulin Reg-MEDIUM-Coverage SC SCH ×4 (07:57→21:24)
[2018-10-11] MEDS ORDERED: Alum-Mag Hydrox-Simethicone Susp (30 mL) PO PRN (08:18)
--- NOTE | 2018-10-11 10:35 | CP.PCM.PN ---
<Travis Denton - Last Filed: 10/11/18 14:01> Subjective - Date & Time of Evaluation Date of Evaluation: 10/11/18 Time of Evaluation: 07:35 - Subjective Subjective: PGY-4 GI Fellow Prog Note Pt lying in bed when seen this AM. States she feels overall a little better with less abd pain and nausea, but sill "not great." States last emesis was night prior. 5 point ROS negative other than stated above Objective - Vital Signs/Intake and Output Vital Signs (last 24 hours): Temp Pulse Resp BP Pulse Ox 97.9 F 69 20 114/53 L 94 L 10/11/18 06:00 10/11/18 10:22 10/11/18 06:00 10/11/18 10:22 10/11/18 06:00 Intake and Output: 10/11/18 10/11/18 06:59 18:59 Intake Total 240 Balance 240 - Medications Medications: Current Medications Acetaminophen (Tylenol 325mg Tab) 650 mg PO Q4H PRN PRN Reason: Pain, Mild (1-3) Al Hydrox/Mg Hydrox/Simethicone (Maalox Plus 30 Ml) 30 ml PO Q6 PRN PRN Reason: Indigestion / Heartburn Last Admin: 10/11/18 08:27 Dose: 30 ml Alprazolam (Xanax) 0.5 mg PO TID [facility]; Protocol Last Admin: 10/11/18 10:21 Dose: 0.5 mg Famotidine (Pepcid) 20 mg IVP HS [facility] Last Admin: 10/10/18 21:13 Dose: 20 mg Sodium Chloride (Sodium Chloride 0.45%) 1,000 mls @ 60 mls/hr IV .[id number] [facility] Last Admin: 10/11/18 04:38 Dose: Not Given Insulin Human Regular (Humulin R Med) 0 [facility]; Protocol Last Admin: 10/11/18 07:57 Dose: Not Given Levetiracetam (Keppra) 750 mg PO BID [facility] Last Admin: 10/11/18 10:21 Dose: 750 mg Metoprolol Tartrate (Lopressor) 25 mg PO BID [facility] Last Admin: 10/11/18 10:22 Dose: Not Given Morphine Sulfate (Morphine) 3 mg IVP Q4H [facility] Last Admin: 10/11/18 08:14 Dose: 3 mg Ondansetron HCl (Zofran Inj) 4 mg IVP Q6H PRN PRN Reason: Nausea/Vomiting Last Admin: 10/10/18 10:32 Dose: 4 mg Pantoprazole Sodium (Protonix Inj) 40 mg IVP 0700 [facility] Last Admin: 10/11/18 08:11 Dose: 40 mg Paroxetine HCl (Paxil) 20 mg PO DAILY [facility] Last Admin: 10/11/18 10:22 Dose: 20 mg Pregabalin (Lyrica) 75 mg PO HS [facility] Last Admin: 10/10/18 21:11 Dose: 75 mg - Labs Labs: 10/10/18 06:20 10/10/18 06:20 PT 10.5 SECONDS (9.4-12.5) 10/08/18 19:30 INR 0.95 10/08/18 19:30 APTT 27.1 Seconds (26.9-38.3) 10/08/18 19:30 - Constitutional Appears: Well, No Acute Distress - Head Exam Head Exam: ATRAUMATIC, NORMAL INSPECTION - Eye Exam Eye Exam: EOMI, Normal appearance - ENT Exam ENT Exam: Mucous Membranes Dry. absent: Mucous Membranes Moist - Respiratory Exam Respiratory Exam: NORMAL BREATHING PATTERN. absent: Accessory Muscle Use, Respiratory Distress - GI/Abdominal Exam GI & Abdominal Exam: Guarding (vol guardingin LUQ), Soft, Tenderness (ttp in luq w/vol guarding), Normal Bowel Sounds. absent: Bruit, Distended, Firm, Rigid, Mass, Pulsatile Mass Assessment and Plan - Assessment and Plan (Free Text) Assessment: 58 year old female with history of Filemon fundoplication 08/2015 s/p two revisions complicated by chronic abdominal pain/gastroparesis/para-esophageal hernia, cholelithiasis, Seizures, CAD s/p stents, HTN, Diabetes, COPD, Depression, and Anxiety presenting with abdominal pain. Prior EGD 06/2018 showed H. pylori negative gastritis, para-esophageal hernia, and Filemon fundoplication. Prior EGD 03/2016 showed esophageal stenosis starting at 34cm from incisors with proximal dilation, fundoplication, and superficial esophageal erosions. Prior colonoscopy 04/2014 showed redundant colon and normal terminal ileum and random colon biopsies. Plan: -Does not meet pancreatitis criteria; resolved lipase elevation; CT A/P- no acute pathology, pancreas normal -U/S: gallstones -Tolerating clear liquid diet, adv to carb controlled small freq meals for lunch -Gen surg consulted, appreciate recs -PPI ACB, Pepcid QHS, zofran PRN -Stool infectious workup if diarrhea re-occurs -counselled to follow up with established surgeon to evaluate for Filemon revision- last follow up 07/2016 -OK to DC with Surgical f/u if tolerating diet Pt discussed with Dr. Berry; please see attestation for further recs/changes <Herminio Berry - Last Filed: 10/11/18 16:04> Objective - Vital Signs/Intake and Output Vital Signs (last 24 hours): Temp Pulse Resp BP Pulse Ox 97.9 F 69 20 114/53 L 94 L 10/11/18 06:00 10/11/18 10:22 10/11/18 06:00 10/11/18 10:22 10/11/18 06:00 Intake and Output: 10/11/18 10/11/18 06:59 18:59 Intake Total 240 Balance 240 - Medications Medications: Current Medications Acetaminophen (Tylenol 325mg Tab) 650 mg PO Q4H PRN PRN Reason: Pain, Mild (1-3) Al Hydrox/Mg Hydrox/Simethicone (Maalox Plus 30 Ml) 30 ml PO Q6 PRN PRN Reason: Indigestion / Heartburn Last Admin: 10/11/18 08:27 Dose: 30 ml Alprazolam (Xanax) 0.5 mg PO TID [facility]; Protocol Last Admin: 10/11/18 14:29 Dose: 0.5 mg Famotidine (Pepcid) 20 mg IVP HS [facility] Last Admin: 10/10/18 21:13 Dose: 20 mg Sodium Chloride (Sodium Chloride 0.45%) 1,000 mls @ 60 mls/hr IV .[id number] [facility] Last Admin: 10/11/18 04:38 Dose: Not Given Insulin Human Regular (Humulin R Med) 0 units SC ACHS [facility]; Protocol Last Admin: 10/11/18 11:42 Dose: Not Given Levetiracetam (Keppra) 750 mg PO BID [facility] Last Admin: 10/11/18 10:21 Dose: 750 mg Metoprolol Tartrate (Lopressor) 25 mg PO BID [facility] Last Admin: 10/11/18 10:22 Dose: Not Given Morphine Sulfate (Morphine) 3 mg IVP Q4H [facility] Last Admin: 10/11/18 15:48 Dose: 3 mg Ondansetron HCl (Zofran Inj) 4 mg IVP Q6H PRN PRN Reason: Nausea/Vomiting Last Admin: 10/11/18 14:29 Dose: 4 mg Pantoprazole Sodium (Protonix Inj) 40 mg IVP 0700 [facility] Last Admin: 10/11/18 08:11 Dose: 40 mg Paroxetine HCl (Paxil) 20 mg PO DAILY [facility] Last Admin: 10/11/18 10:22 Dose: 20 mg Pregabalin (Lyrica) 75 mg PO HS [facility] Last Admin: 10/10/18 21:11 Dose: 75 mg - Labs Labs: 10/10/18 06:20 10/10/18 06:20 PT 10.5 SECONDS (9.4-12.5) 10/08/18 19:30 INR 0.95 10/08/18 19:30 APTT 27.1 Seconds (26.9-38.3) 10/08/18 19:30 Attending/Attestation - Attestation I have fully participated in the care of the patient.: Yes I have reviewed all pertinent clinical information, including history, physical exam and plan: Yes Notes (Text): 10/11/18 16:02 Seizure disorder Hiatal hernia, s/p filemon fundoplipcation CAD s/p stent DM COPD Anxiety - Advance diet as tolerated, suggest small, frequent meals - Follow up surgical recommendations regarding cholelithiasis - Anti-emetic therapy PRN - Patient requires CT surgical follow up for potential filemon revision - If tolerating PO diet, from GI standpoint ok to discharge home with subsequent outpatient follow up
--- NOTE | 2018-10-11 12:58 | PN ---
DATE: 10/11/2018 SUBJECTIVE: She was not feeling well this morning. She had epigastric pain. She had burning in her tummy. She is not feeling well. She was not able to keep the food down yesterday. I am not sure if this is a hiatal hernia versus reflux. She is uncomfortable this morning in bed, not hungry, cannot eat, IV fluids are running. PHYSICAL EXAMINATION: VITAL SIGNS: She has 97.9 temperature, 69 pulse, 114/53 blood pressure, 20 respiratory rate, 94% O2 sat on room air. HEENT: Head is atraumatic, normocephalic. HEART: Regular rate. LUNGS: Decreased breath sounds but clear. ABDOMEN: Tender. No guarding, but discomfort to palpation and decreased bowel sounds. EXTREMITIES: No edema. MEDICATIONS: She is currently on insulin, Keppra, Lopressor, Lyrica, Maalox, morphine, Paxil, Pepcid, Protonix IV, IV fluids, Tylenol, Xanax, and Zofran. LABORATORY DATA: She has sodium 139, potassium 4.2, BUN 12, creatinine 0.4. Last blood sugar was 100, sugar is 106. Also, calcium 9.5. Total bili is 0.6, AST is 22, ALT is 12, alkaline phos 105, total protein is 8.1. White count is 6, hemoglobin 12.1, hematocrit 38, platelets are 262. ASSESSMENT AND PLAN: She was seen by Gastroenterology who said to increase the diet, so she cannot tolerate the diet, they have the chart. I need them to reevaluate her. She has nauseousness. If she finally tolerates the diet, I will increase her and discharge her hopefully today. She is here with nausea, vomiting, abdominal pain. Her lipase was as high as 952 and a pancreatitis picture. She does have history of hiatal hernia. We will continue aggressive treatment and care. Asher Rodrigez DO [facility]
[2018-10-11 16:41] VITALS: RESP 19; TEMP 98.3; O2SAT 93
[2018-10-12] MEDS: Morphine 4 mg/ml ISec IVP SCH ×2 (05:28→08:54)
[2018-10-12] MEDS: Sodium Chloride 0.45% 1,000 ML IV SCH (05:30)
[2018-10-12 07:56] LABS: HEMOGLOBIN 12.4 g/dL (12.0-16.0); MEAN CELL VOLUME 104.1 fl (80.0-105.0); MEAN CORPUSCULAR HEMOGLOBIN 34.2 pg (25.0-35.0); MEAN CORPUSCULAR HGB CONC 32.8 g/dl (31.0-37.0); MEAN PLATELET VOLUME 10.8 fl (7.0-11.0); RBC 3.63 10^6/uL (3.5-6.1); RED CELL DISTRIBUTION WIDTH 13.8 % (11.5-14.5); WHITE BLOOD COUNT 4.7 10^3/uL (4.5-11.0)
[2018-10-12] MEDS: Insulin Reg-MEDIUM-Coverage SC SCH ×2 (08:20→16:22)
[2018-10-12 08:39] LABS: ALB/GLOB RATIO 1.4 (1.1-1.8); ALBUMIN 4.4 g/dL (3.0-4.8); ALT/SGPT 19 U/L (7-56); AST/SGOT 23 U/L (14-36); BLOOD UREA NITROGEN 11 mg/dL (7-21); GFR NON-AFRICAN AMERICAN > 60
--- NOTE | 2018-10-12 08:39 | CP.PCM.PN ---
<Awilda Jimenez - Last Filed: 10/12/18 08:45> Subjective - Date & Time of Evaluation Date of Evaluation: 10/12/18 Time of Evaluation: 08:34 - Subjective Subjective: Gastroenterology Fellow/PGY6 Progress Note Patient siting on side of bed comfortably. States she continues to be nauseous and any liquids swallowed "come back up" but not described as vomiting. No bowel movement since Tuesday. A 12-point review of systems negative except for as above. Objective - Vital Signs/Intake and Output Vital Signs (last 24 hours): Temp Pulse Resp BP Pulse Ox 98.3 F 65 19 100/70 93 L 10/11/18 16:40 10/11/18 18:01 10/11/18 16:40 10/11/18 18:35 10/11/18 16:40 - Medications Medications: Current Medications Acetaminophen (Tylenol 325mg Tab) 650 mg PO Q4H PRN PRN Reason: Pain, Mild (1-3) Al Hydrox/Mg Hydrox/Simethicone (Maalox Plus 30 Ml) 30 ml PO Q6 PRN PRN Reason: Indigestion / Heartburn Last Admin: 10/11/18 08:27 Dose: 30 ml Alprazolam (Xanax) 0.5 mg PO TID [facility]; Protocol Last Admin: 10/11/18 17:59 Dose: 0.5 mg Famotidine (Pepcid) 20 mg IVP HS [facility] Last Admin: 10/11/18 21:28 Dose: 20 mg Sodium Chloride (Sodium Chloride 0.45%) 1,000 mls @ 60 mls/hr IV .[id number] [facility] Last Admin: 10/12/18 05:30 Dose: 60 mls/hr Insulin Human Regular (Humulin R Med) 0 units SC ACHS [facility]; Protocol Last Admin: 10/12/18 08:20 Dose: Not Given Levetiracetam (Keppra) 750 mg PO BID [facility] Last Admin: 10/11/18 17:59 Dose: 750 mg Metoprolol Tartrate (Lopressor) 25 mg PO BID [facility] Last Admin: 10/11/18 18:01 Dose: Not Given Morphine Sulfate (Morphine) 3 mg IVP Q4H [facility] Last Admin: 10/12/18 05:28 Dose: 3 mg Ondansetron HCl (Zofran Inj) 4 mg IVP Q6H PRN PRN Reason: Nausea/Vomiting Last Admin: 10/11/18 14:29 Dose: 4 mg Pantoprazole Sodium (Protonix Inj) 40 mg IVP 0700 [facility] Last Admin: 10/11/18 08:11 Dose: 40 mg Paroxetine HCl (Paxil) 20 mg PO DAILY [facility] Last Admin: 10/11/18 10:22 Dose: 20 mg Polyethylene Glycol (Miralax) 17 gm PO DAILY [facility] Pregabalin (Lyrica) 75 mg PO HS [facility] Last Admin: 10/11/18 21:28 Dose: 75 mg - Labs Labs: 10/12/18 07:40 10/10/18 06:20 PT 10.5 SECONDS (9.4-12.5) 10/08/18 19:30 INR 0.95 10/08/18 19:30 APTT 27.1 Seconds (26.9-38.3) 10/08/18 19:30 - Constitutional Appears: Non-toxic, No Acute Distress - Head Exam Head Exam: ATRAUMATIC, NORMOCEPHALIC - Eye Exam Eye Exam: EOMI, PERRL. absent: Scleral icterus Pupil Exam: PERRL. absent: Miosis, Mydriatic - ENT Exam ENT Exam: Mucous Membranes Moist, Normal Oropharynx - Neck Exam Neck Exam: Full ROM, Normal Inspection - Respiratory Exam Respiratory Exam: Clear to Ausculation Bilateral. absent: Rales, Rhonchi, Wheezes - Cardiovascular Exam Cardiovascular Exam: RRR, +S1, +S2. absent: Gallop, Rubs - GI/Abdominal Exam GI & Abdominal Exam: Soft, Tenderness, Normal Bowel Sounds. absent: Distended, Firm, Guarding, Rigid, Organomegaly, Rebound Additional comments: LUQ tenderness to palpation - Extremities Exam Extremities Exam: Normal Inspection. absent: Pedal Edema - Neurological Exam Neurological Exam: Alert, Awake - Psychiatric Exam Psychiatric exam: Normal Affect, Normal Mood - Skin Skin Exam: Dry, Intact, Normal Color, Warm Assessment and Plan - Assessment and Plan (Free Text) Assessment: 58 year old female with PMH of Nicolas fundoplication 08/2015 s/p two revisions co mplicated by chronic abdominal pain/gastroparesis/para-esophageal hernia, cholelithiasis, Seizures, CAD s/p stents, HTN, Diabetes, COPD, Depression, and Anxiety presenting with abdominal pain. Prior EGD 06/2018 showed H. pylori negative gastritis, para-esophageal hernia, and Nicolas fundoplication. Prior EGD 03/2016 showed esophageal stenosis starting at 34cm from incisors with proximal dilation, fundoplication, and superficial esophageal erosions. Prior colonoscopy 04/2014 showed redundant colon and normal terminal ileum and random colon biopsies. Plan: -stool retention on CT review -start Miralax for constipation -on clear liquids, advanced to trial solids for lunch -follow up Abdominal xray -continue PPI ACB, Pepcid QHS -zofran PRN -requires follow up with established surgeon to evaluate Nicolas revision <Herminio Berry - Last Filed: 10/12/18 13:54> Objective - Vital Signs/Intake and Output Vital Signs (last 24 hours): Temp Pulse Resp BP Pulse Ox 98.3 F 81 19 114/61 93 L 10/11/18 16:40 10/12/18 10:17 10/11/18 16:40 10/12/18 10:17 10/11/18 16:40 - Medications Medications: Current Medications Acetaminophen (Tylenol 325mg Tab) 650 mg PO Q4H PRN PRN Reason: Pain, Mild (1-3) Al Hydrox/Mg Hydrox/Simethicone (Maalox Plus 30 Ml) 30 ml PO Q6 PRN PRN Reason: Indigestion / Heartburn Last Admin: 10/11/18 08:27 Dose: 30 ml Alprazolam (Xanax) 0.5 mg PO TID [facility]; Protocol Last Admin: 10/12/18 10:29 Dose: 0.5 mg Famotidine (Pepcid) 20 mg IVP HS [facility] Last Admin: 10/11/18 21:28 Dose: 20 mg Sodium Chloride (Sodium Chloride 0.45%) 1,000 mls @ 60 mls/hr IV .[id number] [facility] Last Admin: 10/12/18 05:30 Dose: 60 mls/hr Insulin Human Regular (Humulin R Med) 0 units SC ACHS [facility]; Protocol Last Admin: 10/12/18 08:20 Dose: Not Given Levetiracetam (Keppra) 750 mg PO BID [facility] Last Admin: 10/12/18 10:17 Dose: 750 mg Metoprolol Tartrate (Lopressor) 25 mg PO BID [facility] Last Admin: 10/12/18 10:17 Dose: 25 mg Morphine Sulfate (Morphine) 1 mg IVP Q6H PRN PRN Reason: MODERATE PAIN Last Admin: 10/12/18 12:29 Dose: 1 mg Ondansetron HCl (Zofran Inj) 4 mg IVP Q6H PRN PRN Reason: Nausea/Vomiting Last Admin: 10/11/18 14:29 Dose: 4 mg Pantoprazole Sodium (Protonix Inj) 40 mg IVP 0700 [facility] Last Admin: 10/12/18 08:56 Dose: 40 mg Paroxetine HCl (Paxil) 20 mg PO DAILY [facility] Last Admin: 10/12/18 10:27 Dose: 20 mg Polyethylene Glycol (Miralax) 17 gm PO DAILY [facility] Last Admin: 10/12/18 10:18 Dose: 17 gm Pregabalin (Lyrica) 75 mg PO HS [facility] Last Admin: 10/11/18 21:28 Dose: 75 mg - Labs Labs: 10/12/18 07:40 10/12/18 07:40 PT 10.5 SECONDS (9.4-12.5) 10/08/18 19:30 INR 0.95 10/08/18 19:30 APTT 27.1 Seconds (26.9-38.3) 10/08/18 19:30 Attending/Attestation - Attestation I have fully participated in the care of the patient.: Yes I have reviewed all pertinent clinical information, including history, physical exam and plan: Yes Notes (Text): 10/12/18 13:53 Hiatal hernia s/p fundoplication COPD Anxiety Abdominal pain, vomiting - gastroparesis Seizure disorder CAD DM/HTN - Advance diet as tolerated - Anti-emetic therapy PRN - Abdominal XR reviewed by me showing no obstructive pathology - May offer trial of pro-motility therapy if no clinical improvement - Will continue to monitor patient clinical course
[2018-10-12] MEDS ORDERED: Morphine 2 mg/ml ISec IVP PRN (09:30)
[2018-10-12] MEDS ORDERED: POLYETHYLENE GLYCOL 3350 17 GM/Dose PACKET PO SCH (10:00)
[2018-10-12 10:30] VITALS: BP 114/61; PULSE 81
--- NOTE | 2018-10-12 13:55 | DS ---
HISTORY OF PRESENT ILLNESS: She threw up yesterday, got nauseous after eating regular food yesterday with back to down to clears. She is not doing that great with the clears, but she is trying to increase her diet to regular for lunch, if she does well, try and discharge her again today. She is currently on IV fluids, Keppra, metoprolol, Lyrica, MiraLax, Paxil, Pepcid, Protonix, Tylenol, Xanax and Zofran. I am going to decrease her morphine because she did not appear to be any distress at this time and she cannot have morphine if she is going to go home. She can stay here on that, so I am hopefully that she will able to get off the morphine and eat the food and not throw up and I can discharge her. She had intractable nausea and vomiting, abdominal pain. She has severe hiatal hernia. PHYSICAL EXAMINATION: VITAL SIGNS: She has a 98.3 temperature, 65 pulse, 100/70 blood pressure, 19 respiratory rate and 92% O2 sat. HEENT: Head is atraumatic and normocephalic. HEART: Regular rate. LUNGS: Decreased breath sounds, but clear. ABDOMEN: Soft. Positive bowel sounds. Nontender. No guarding. EXTREMITIES: No edema. LABORATORY DATA: She has a 4.7 white count, 12.4 hemoglobin, 37.8 hematocrit with 160 platelets. Lactate was last at 2.3. She has sodium 141, potassium 4.6, BUN 11, creatinine 0.4, GFR is greater than 60, sugar is 94, calcium is 9, total bili is 0.6, AST is 23, ALT is 19, alk phos is 93 and total protein 7.6. Urine was clean. GI keeps on the saying that she could be discharged and then she keeps on throwing up, lets see if she keeps the food down today. I will try and discharge her if she eats well after lunch. Pedro Rodrigez DO
--- NOTE | 2018-10-12 15:22 | RAD ---
Date of service: 10/12/2018 HISTORY: r/o ileus sbo ?? COMPARISON: Is TECHNIQUE: 1 view obtained. FINDINGS: BOWEL: Constipation without fecal impaction or obstruction. BONES: Normal. Orthopedic hardware related to laminectomy and fusion lower lumbar spine/lumbosacral junction. OTHER FINDINGS: None. IMPRESSION: No significant or acute findings to account for/ related to the clinical presentation. Additional benign and/or incidental findings described above.
== END 2018-10-12 16:43 | disposition home or self-care (01) | DRG 204 ==
LOC: ED 18:22 → ERH 20:07 → 3RSO 22:25
PROVIDERS: ADMIT Family Medicine; ATTEND Family Medicine
DX: K85.10 Biliary acute pancreatitis without necrosis or infection (principal); E11.43 Type 2 diabetes mellitus with diabetic autonomic (poly)neuropathy; J44.9 Chronic obstructive pulmonary disease, unspecified; K31.84 Gastroparesis; K44.9 Diaphragmatic hernia without obstruction or gangrene; G89.29 Other chronic pain; K80.20 Calculus of gallbladder without cholecystitis without obstruction; I25.10 Atherosclerotic heart disease of native coronary artery without angina pectoris; I10 Essential (primary) hypertension; G40.909 Epilepsy, unspecified, not intractable, without status epilepticus; K21.9 Gastro-esophageal reflux disease without esophagitis; F41.0 Panic disorder [episodic paroxysmal anxiety]; F32.9 Major depressive disorder, single episode, unspecified; K29.70 Gastritis, unspecified, without bleeding; K76.0 Fatty (change of) liver, not elsewhere classified; I25.2 Old myocardial infarction; Z87.442 Personal history of urinary calculi; Z95.5 Presence of coronary angioplasty implant and graft; Z87.891 Personal history of nicotine dependence

== ENCOUNTER 2018-11-09 12:24 | Outpatient (CLI) | payer MEDICAID | END 2018-11-09 12:25 | disposition home or self-care (01) | LOC: LAB 12:24 ==